=== PATIENT | female | born 1990 | race Caucasian/White ===

== ENCOUNTER → 2023-03-21 10:52 | Outpatient (BNVA) | payer MEDICARE, MEDICAID, SELFPAY | PROVIDERS: PCP Internal Medicine; Visit Provider Internal Medicine | DX: B20 Human immunodeficiency virus [HIV] disease (principal); F41.9 Anxiety disorder, unspecified; F32.A Depression, unspecified; F17.210 Nicotine dependence, cigarettes, uncomplicated; K46.9 Unspecified abdominal hernia without obstruction or gangrene; B00.9 Herpesviral infection, unspecified | CPT/HCPCS: 99202 ==

== ENCOUNTER 2023-05-23 11:16 | Outpatient (AMB) | payer MEDICARE, MEDICAID, SELFPAY ==
--- NOTE | 2023-05-23 11:17 | A.OFFVIS_ITS ---
Intake Vital Signs 05/23/23 11:28 Height 5 ft 4 in Weight 179 lb BMI 30.7 BP 124/58 L Blood Pressure Location Lt brachial Position Sitting Pulse 91 Intake Visit Reasons: Hernia Intake Note: Patient is seen in office for evaluation and treatment of umbilical hernias. Pt c/o: onset 11 yrs ago after childbirth, more pronounce after weight gain, sore, discomfort, denies nausea, vomit, diarrhea, constipation Drawing In Machine Tender Required: No Auto Bumper Straightener: Auto Bumper Straightener offered & declined Accompanied by: Son Allergies citalopram [From Celexa] Allergy (Unknown, Verified 05/23/23 11:25) Unknown sulindac Allergy (Unknown, Verified 05/23/23 11:25) Unknown batrim Allergy (Unknown, Uncoded 05/23/23 11:25) Unknown Medication List - Last Reconciled 05/23/23 by Mp Contreras MD [id number] ala 50-200-25 mg (Biktarvy) 1 tab PO DAILY clonazepam 0.25 mg PO BID gabapentin 300 mg PO DAILY Lactobacillus rhamnosus GG (Culturelle) 1 cap PO DAILY omeprazole 40 mg PO DAILY propranolol 10 mg PO TID PRN quetiapine (Seroquel) 200 mg PO DAILY tizanidine 2 mg PO TID PRN valacyclovir 1,000 mg PO DAILY HPI HPI Comments History of Present Illness Details The patient is a 32-year-old woman seen by the request of her PCP and HIV physician due to a ventral hernia that is been increasing in size. Patient denies any prior history of repair and has no signs or symptoms of incarceration, strangulation or, or obstruction. She notes her weight is fairly stable, but on any strenuous activity or Valsalva such as coughing or sneezing, the hernia protrudes more significantly and she is interested in repair. Patient states she was seen at hospital prior to moving here about 1-2 years ago. I do not have access to the records, but the patient requested that I obtained them to review them and is willing to sign consents to transfer records for continuity of care. Patient's HIV Dr. Kruger note from February, is reviewed. It appears that the patient's HIV is undetectable and the CD4 cell counts are reasonable; the patient notes that she is continuing to use nicotine and is interested in quitting, especially if it increases the risk of successful surgery. She also notes heavy daily marijuana use secondary to anxiety and we discussed how this could potentially negatively impact anesthesia stool, so she will work on titrating/weaning use of this medication. The patient notes that her 12 years ago resulted in very significant iatrogenic pathology and she reports she had a bladder injury and bleeding as well as a partial hysterectomy due to these events. She notes that she is extremely anxious about having an operation and this is also factor 10 to why she has put off surgery for such a long time. [facility] Medical History Anxiety delivery due to maternal disorder Depression demise, greater than 22 weeks, antepartum, single gestation Hernia of abdominal cavity Herpes simplex HIV (human immunodeficiency virus infection) Right ovarian cyst Smoker Surgical History Previous delivery, antepartum condition or complication S/P left oophorectomy S/p partial hysterectomy with remaining cervical stump Family History Other No known health problems Social History Alcohol intake: unknown Patient Tobacco Use Status: Current everyday Tobacco user Cigarette Packs Per Day: 1 Use of substances other than those prescribed or required for medical reasons: Unknown Review of Systems Const All systems reviewed & are unremarkable except as noted in HPI and below Reports as per HPI Physical Exam The patient is non-toxic & in good spirits NC/AT, PERRLA, EOMI Mood, affect & judgment all appear appropriate Sclera anicteric conjunctiva pink and moist Oropharynx is clear with no aphthous ulcers, Mallampati class 2, mucous membranes moist Neck is supple with no masses, adenopathy or bruits Heart is regular, normal S1-S2 no rubs or murmurs Lungs are clear and equal anteriorly with no audible wheezing, rubs or dullness to percussion Abdomen is overweight with a reducible ventral hernia in the epigastrium to the patient's left of midline; I believe the patient also has an umbilical hernia that is reducible. No HSM, rebound, rigidity, guarding, masses or bruits are present. No trophic skin changes are present and no erythema or ulceration is present. Rectal exam is deferred Skin has good turgor and is free of rashes Extremities free of cyanosis clubbing edema Assessment & Plan Assessment & Plan (1) Hernia of abdominal cavity: Code(s): K46.9 - Unspecified abdominal hernia without obstruction or gangrene (2) HIV (human immunodeficiency virus infection): Comment: She is on Biktarvy. Last CD4 count undetectable 12/2022 and viral load 917. She takes Biktarvy daily Code(s): B20 - Human immunodeficiency virus [HIV] disease (3) Anxiety: Comment: Continue medication Follow [facility] Code(s): F41.9 - Anxiety disorder, unspecified (4) Depression: Code(s): F32.A - Depression, unspecified (5) Smoker: Comment: She declines nicotine products today. Continue to offer quitting strategies. Code(s): F17.200 - Nicotine dependence, unspecified, uncomplicated (6) Asthma: Code(s): J45.909 - Unspecified asthma, uncomplicated Plan Explained the pathophysiology of hernia, specifically ventral and umbilical hernia in the rare but serious risks of incarceration, strangulation, obstruction and need for emergent surgery which carries a greater risk to the patient. The option of continued observation was reviewed, but the patient is interested in obtaining more information regarding hernia repair, since the hernia is getting bigger and becoming more symptomatic with Valsalva, such as coughing or sneezing. The patient did want to advise me and the surgical/anesthesia team that she is extremely anxious regarding this matter given her complications that occurred with her last operation/. Patient has acknowledged that she would like to quit smoking/nicotine use and we did discuss that is a modifiable risk factor for hernia complications such as recurrence and mesh infection. Patient has requested that I obtain records from her last evaluation. I did explain to the patient that she appears to have 2 hernias, the ventral hernia an d umbilical and possibly more and I have ordered a CT A/P with Valsalva (no need for oral or IV contrast) to better assess her anatomy. Multiple hernia or a desire to avoid mesh repair require CT assessment and full discussion regarding hernia repair options. She is willing to have this done and will follow up with me for 30 minute visit when it is complete. I will also obtain nonfasting labs today. I will see the patient back a week after her CT A/P is performed. Activity restrictions postoperatively, specifically that she would need to avoid lifting more than 20 lb for 6 weeks to allow adequate healing was reviewed. The option of laparoscopic repair with mesh or open repair with primary closure/without mesh was discussed and the patient will consider options and we will discuss at her follow-up visit. Lastly, the patient gave me permission to contact her physicians to coordinate care regarding her nicotine cessation, HIV/CD4 counts and optimize her for surgery. The importance of maintaining a stable weight to mitigate hernia recurrence was also reviewed and apparently understood. Patient's questions seemed to be satisfactorily answered. Orders: Orders Comprehensive Met. Panel Today B20 - Human immunodeficiency virus [HIV] disease, F17.200 - Nicotine dependence, unspecified, uncomplicated, F32.A - Depression, unspecified, F41.9 - Anxiety disorder, unspecified, K46.9 - Unspecified abdominal hernia without obstruction or gangrene Prealbumin Today B20 - Human immunodeficiency virus [HIV] disease, F17.200 - Nicotine dependence, unspecified, uncomplicated, F32.A - Depression, unspecified, F41.9 - Anxiety disorder, unspecified, K46.9 - Unspecified abdominal hernia without obstruction or gangrene CT abdomen pelvis wo IV con Today B20 - Human immunodeficiency virus [HIV] disease, F17.200 - Nicotine dependence, unspecified, uncomplicated, F32.A - Depression, unspecified, F41.9 - Anxiety disorder, unspecified, K46.9 - Unspecified abdominal hernia without obstruction or gangrene Complete Blood Count Auto Diff Today B20 - Human immunodeficiency virus [HIV] disease, F17.200 - Nicotine dependence, unspecified, uncomplicated, F32.A - Depression, unspecified, F41.9 - Anxiety disorder, unspecified, K46.9 - Unspecified abdominal hernia without obstruction or gangrene Coding Level of Care Code New Pt Level 4 (75010) Diagnoses Hernia of abdominal cavity K46.9 HIV (human immunodeficiency virus infection) B20 Anxiety F41.9 Depression F32.A Smoker F17.200 Asthma J45.909
[2023-05-23 11:28] VITALS: BP 124/58; PULSE 91; BMI 30.7
== END 2023-05-23 12:14 | disposition home or self-care (01) ==
PROVIDERS: PCP Internal Medicine; Referring Provider Internal Medicine; Visit Provider Surgery
DX: K46.9 Unspecified abdominal hernia without obstruction or gangrene (principal); B20 Human immunodeficiency virus [HIV] disease; F41.9 Anxiety disorder, unspecified; F32.A Depression, unspecified; F17.200 Nicotine dependence, unspecified, uncomplicated; J45.909 Unspecified asthma, uncomplicated
CPT/HCPCS: 99204

== ENCOUNTER → 2023-05-23 11:16 | Outpatient (BNVA) | payer MEDICAID, SELFPAY | PROVIDERS: PCP Internal Medicine; Referring Provider Internal Medicine; Visit Provider Surgery | DX: K46.9 Unspecified abdominal hernia without obstruction or gangrene (principal); B20 Human immunodeficiency virus [HIV] disease; F41.9 Anxiety disorder, unspecified; F32.A Depression, unspecified; J45.909 Unspecified asthma, uncomplicated; F17.210 Nicotine dependence, cigarettes, uncomplicated | CPT/HCPCS: 99202 ==

== ENCOUNTER 2023-07-07 14:59 | Outpatient (REF) | payer MEDICARE, MEDICAID, SELFPAY ==
--- NOTE | ~2023-07-07 | CT_ITS ---
EXAMINATION: CT ABDOMEN AND PELVIS WITHOUT CONTRAST CLINICAL INFORMATION: Unspecified abdominal hernia without obstruction or gangrene. COMPARISON: None available. TECHNIQUE: Multidetector volumetric imaging was performed from the superior aspect of the liver through the pubic symphysis. Sagittal and coronal reformatted images were obtained on the technologist's workstation. Valsalva maneuver was performed. This CT examination was performed using dose optimization techniques as appropriate, variously including the following: *Automated exposure control *Adjustment of mA and/or kV according to patient size (this includes techniques or standardized protocols for targeted exams where dose is matched to indication/reason for exam; i.e. extremities or head) *Use of iterative reconstruction technique DLP: 546 mGy-cm FINDINGS: LUNG BASES: Trace pericardial effusion. LIVER, GALLBLADDER, AND BILIARY TREE: The liver is normal in size, shape, and attenuation. No focal hepatic lesion or biliary ductal dilatation is present. The gallbladder is unremarkable with no evidence of radiopaque gallstones, gallbladder wall thickening, or obvious pericholecystic inflammatory changes. PANCREAS: Unremarkable. SPLEEN: Unremarkable. ADRENAL GLANDS: Unremarkable. KIDNEYS AND URETERS: The kidneys are symmetric in size. Punctate bilateral nonobstructing renal calculi. No hydronephrosis or perinephric stranding. BLADDER: Underdistended. GASTROINTESTINAL TRACT: There is a featureless appearance of the rectosigmoid colon. No small bowel obstruction. Moderate fecal retention in the colon. Appendix is within normal limits. ABDOMINAL WALL: Left eccentric ventral hernia measures 5.9 x 3.8 x 4.5 cm. Neck of the hernia measures 2.1 cm. There are no associated inflammatory changes. LYMPH NODES: No bulky abdominal or pelvic lymphadenopathy. VASCULAR: Normal caliber abdominal aorta. PELVIC VISCERA: Streak artifact from multiple metallic clips in the pelvis. This limits evaluation of the pelvic visceral structures. OSSEOUS STRUCTURES: No destructive bone lesions. CT/CT abdomen pelvis wo IV con IMPRESSION: Left eccentric ventral hernia measures 5.9 x 3.8 x 4.5 cm. Neck of the hernia measures 2.1 cm. No associated inflammatory changes. Punctate nonobstructing bilateral renal calculi. No hydronephrosis.
== END 2023-07-07 15:00 | disposition home or self-care (01) ==
LOC: HO.CT 14:59
PROVIDERS: PCP Internal Medicine; Visit Provider Surgery
DX: K46.9 Unspecified abdominal hernia without obstruction or gangrene (principal); B20 Human immunodeficiency virus [HIV] disease; F17.200 Nicotine dependence, unspecified, uncomplicated
CPT/HCPCS: 74176

== ENCOUNTER 2023-07-19 10:33 | Outpatient (AMB) | payer MEDICARE, MEDICAID, SELFPAY ==
[2023-07-19 10:39] VITALS: BP 105/63; PULSE 70; TEMP 36.2; O2SAT 99; BMI 30.6
--- NOTE | 2023-07-19 10:39 | MHC.OFFVIS ---
Intake Vital Signs 07/19/23 10:39 Height 5 ft 4 in Weight 178 lb 9.191 oz BMI 30.6 BP 105/63 Blood Pressure Location Rt brachial Position Sitting Pulse 70 Pulse Source Pulse Oximeter Temp 97.1 F Temp Source Temporal Artery Scan Pulse Oximetry (%) 99 Oxygen Delivery Method Room Air Intake Visit Reasons: Follow Up CT scan Tree Thinner Required: No Manager Wastewater: Manager Wastewater offered & declined Allergies citalopram [From Celexa] Allergy (Unknown, Verified 07/19/23 10:59) Unknown sulindac Allergy (Unknown, Verified 07/19/23 10:59) Unknown batrim Allergy (Unknown, Uncoded 07/19/23 10:59) Unknown HPI HPI Comments History of Present Illness Details The patient is a 32-year-old woman seen by the request of her PCP and HIV physician due to a ventral hernia that is been increasing in size. Patient denies any prior history of repair and has no signs or symptoms of incarceration, strangulation or, or obstruction. She notes her weight is fairly stable, but on any strenuous activity or Valsalva such as coughing or sneezing, the hernia protrudes more significantly and she is interested in repair. The patient is here in follow-up regarding the CT I ordered to assess her ventral hernia and an incidental umbilical hernia was also noted. She notes continued heavy cigarette smoking & daily marijuana use. Patient's HIV Dr. Clinton & Deborah note from February, is reviewed. It appears that the patient's HIV is undetectable and the CD4 cell counts are reasonable; the patient notes that she is continuing to use nicotine and is interested in quitting, especially if it increases the risk of successful surgery. She also notes heavy daily marijuana use secondary to anxiety and we discussed how this could potentially negatively impact anesthesia, so she will work on titrating/weaning use of marijuana. The patient notes that her 12 years ago resulted in very significant iatrogenic pathology and she reports she had a bladder injury and bleeding as well as a partial hysterectomy due to these events. She notes that she is extremely anxious about having an operation and this is also factoring into why she has put off surgery for such a long time. [facility] Medical History Herpes simplex Anxiety Depression demise, greater than 22 weeks, antepartum, single gestation Smoker delivery due to maternal disorder Right ovarian cyst HIV (human immunodeficiency virus infection) Hernia of abdominal cavity Surgical History Previous delivery, antepartum condition or complication S/P left oophorectomy S/p partial hysterectomy with remaining cervical stump Family History Other No known health problems Social History Alcohol intake: unknown Patient Tobacco Use Status: Current everyday Tobacco user Cigarette Packs Per Day: 1 Review of Systems Const All systems reviewed & are unremarkable except as noted in HPI and below Reports as per HPI Physical Exam On exam she is non-toxic & anicteric she's in no acute respiratory distress Her abdomen is overweight with a reducible ventral hernia in the supraumbilical midline and a small, reducible umbilical hernia. She has no peritoneal sign on exam. Results Reviewed Results Reviewed: CT of the abdomen and pelvis with Valsalva demonstrates both a small umbilical hernia and a larger 2.1 cm fascial defect above the umbilicus. They are in proximity to each other, so laparoscopic primary closure and intraperitoneal mesh repair (IPOM-plus) is recommended. Assessment & Plan Assessment & Plan (1) Ventral hernia: Code(s): K43.9 - Ventral hernia without obstruction or gangrene (2) Umbilical hernia: Code(s): K42.9 - Umbilical hernia without obstruction or gangrene (3) HIV (human immunodeficiency virus infection): Comment: She is on Biktarvy. Last CD4 count undetectable 12/2022 and viral load 917. She takes Biktarvy daily Code(s): B20 - Human immunodeficiency virus [HIV] disease (4) Anxiety: Comment: Continue medication Follow [facility] Code(s): F41.9 - Anxiety disorder, unspecified (5) Smoker: Comment: She declines nicotine products today. Continue to offer quitting strategies. Code(s): F17.200 - Nicotine dependence, unspecified, uncomplicated (6) Depression: Code(s): F32.A - Depression, unspecified (7) S/P left oophorectomy: Code(s): Z90.721 - Acquired absence of ovaries, unilateral (8) S/p partial hysterectomy with remaining cervical stump: Code(s): Z90.711 - Acquired absence of uterus with remaining cervical stump (9) Asthma: Code(s): J45.909 - Unspecified asthma, uncomplicated Plan Explained to the patient that she has a small asymptomatic umbilical hernia as well as a larger ventral hernia with a 2.1 cm defect. We reviewed options including laparoscopic repair with mesh, her prior iatrogenic complications that required prolonged hospitalization and the other option of a simple open repair addressing the most symptomatic hernia, the ventral hernia. The importance of maintaining a stable weight and ideally, nicotine cessation was discussed. Patient had questions regarding the pros and cons of and a laparoscopic verses open repair. If she is unable to quit smoking, the simple is course of action may be primary closure of this defect via open approach. The patient did express some interest in laparoscopic mesh repair, but did voice anxiety over her prior complications from intra-abdominal surgery. We will discuss in greater detail at her follow-up after her labs are performed. Patient will go for nonfasting labs. Patient is due for follow-up with her ID doctor, Dr. Love, re: HIV & viral counts & CD4 counts. Handouts regarding a high-protein/low-carbohydrate/low-fat diet were provided with dietary instruction regarding maintaining healthy weight. Patient's questions seemed to be satisfactorily answered and she will follow up in 2 weeks. Coding Level of Care Code Est Pt Level 4 (31344) Diagnoses Ventral hernia K43.9 Umbilical hernia K42.9 HIV (human immunodeficiency virus infection) B20 Anxiety F41.9 Smoker F17.200 Depression F32.A S/P left oophorectomy Z90.721 S/p partial hysterectomy with remaining cervical stump Z90.711 Asthma J45.909
== END 2023-07-19 11:34 | disposition home or self-care (01) ==
PROVIDERS: PCP Internal Medicine; Visit Provider Surgery
DX: K43.9 Ventral hernia without obstruction or gangrene (principal); K42.9 Umbilical hernia without obstruction or gangrene; B20 Human immunodeficiency virus [HIV] disease; F41.9 Anxiety disorder, unspecified; F17.200 Nicotine dependence, unspecified, uncomplicated; F32.A Depression, unspecified; Z90.721 Acquired absence of ovaries, unilateral; Z90.711 Acquired absence of uterus with remaining cervical stump; J45.909 Unspecified asthma, uncomplicated
CPT/HCPCS: 99214

== ENCOUNTER 2023-07-19 10:33 | Outpatient (REF) | payer MEDICARE, MEDICAID, SELFPAY ==
[2023-07-19 11:54] LABS: MANUAL DIFF FLAG NO
[2023-07-19 12:44] LABS: Basophils Absolute Auto 0.1 X10*3/uL (0.0-0.2); Basophils Percent Auto 0.5 % (0-2); Eosinophils Absolute Auto 0.3 X10*3/uL (0.0-0.4); Eosinophils Percent Auto 2.7 % (0-4); Hematocrit 42.2 % (37.0-47.0); Hemoglobin 14.2 g/dl (12.0-16.0); Imm Gran Abs Auto 0.04 X10*3/uL (0.00-0.03); Imm Gran Pct Auto 0.4 % (0.0-0.4); Lymphocytes Percent Auto 32.6 % (20-40); Mean Corpuscular HGB Conc 33.6 g/dl (31.0-35.0); Mean Corpuscular Volume 98.1 fL (80.0-98.0); Mean Platelet Volume 10.1 fL (9.4-12.3); Monocytes Absolute Auto 0.5 X10*3/uL (0.1-1.2); Monocytes Percent Auto 5.1 % (2-11); Neutrophils Absolute Auto 5.3 x10*3/uL (2.0-8.3); Neutrophils Percent Auto 58.7 % (45-73); Platelet Count 273 X10*3/uL (160-400); Red Cell Distribution Width 12.7 % (11.0-16.0); White Blood Count 9.1 X10*3/uL (4.8-10.8)
[2023-07-19 13:01] LABS: INTERNATIONAL NORM RATIO 0.9 (0.9-1.1); Prothrombin Time 11.4 SEC (11.1-13.3)
[2023-07-19 13:03] LABS: Partial Thromboplastin Time 45.1 SEC (26.0-36.4)
[2023-07-19 13:20] LABS: Alanine Aminotransferase 18 U/L (0-31); Albumin Level 4.6 g/dL (3.5-5.0); Alkaline Phosphatase 89 U/L (39-117); Anion Gap 10 (12-20); Aspartate Amino Transferase 19 U/L (5-31); Bilirubin Total 0.5 mg/dL (0.0-1.0); Blood Urea Nitrogen 11 mg/dL (9-16); Calcium 9.8 mg/dL (8.4-10.2); Carbon Dioxide 28 mmol/L (22-29); Chloride 105 mmol/L (96-108); Estimated Glomerular Filt Rate > 60; Glucose Random 88 mg/dL (60-115); Potassium 4.2 mmol/L (3.3-5.1); Sodium 139 mmol/L (135-145); Total Protein 7.4 g/dL (6.5-8.0)
== END 2023-07-19 10:34 | disposition home or self-care (01) ==
LOC: HO.LAB 10:33
PROVIDERS: PCP Internal Medicine; Visit Provider Surgery
DX: K43.9 Ventral hernia without obstruction or gangrene (principal); K42.9 Umbilical hernia without obstruction or gangrene; B20 Human immunodeficiency virus [HIV] disease; F41.9 Anxiety disorder, unspecified; F32.A Depression, unspecified; J45.909 Unspecified asthma, uncomplicated; F17.200 Nicotine dependence, unspecified, uncomplicated; Z90.711 Acquired absence of uterus with remaining cervical stump; Z90.721 Acquired absence of ovaries, unilateral
CPT/HCPCS: 36415; 80053; 84134; 85025; 85610; 85730; 99212

== ENCOUNTER 2023-08-01 09:21 | Outpatient (AMB) | payer MEDICARE, MEDICAID, SELFPAY ==
--- NOTE | 2023-08-01 09:21 | A.OFFVIS_ITS ---
Intake Intake Visit Reasons: Follow Up CT scan Intake Note: televisit Allergies citalopram [From Celexa] Allergy (Unknown, Verified 08/01/23 09:22) Unknown sulindac Allergy (Unknown, Verified 08/01/23 09:22) Unknown batrim Allergy (Unknown, Uncoded 08/01/23 09:22) Unknown HPI HPI Comments History of Present Illness Details The patient is a 32-year-old woman seen by the request of her PCP and HIV physician due to a ventral hernia that is been increasing in size. Patient denies any prior history of repair and has no signs or symptoms of incarceration, strangulation or, or obstruction. She notes her weight is fairly stable, but on any strenuous activity or Valsalva such as coughing or sneezing, the hernia protrudes more significantly and she is interested in repair. The patient requested a televisit f/u today, 08/01/23 regarding the next steps re: her ventral hernia and an incidental umbilical hernia was also noted. She notes continued heavy cigarette smoking & daily marijuana use. She is interested in nicotine cessation and believe she would prefer the more durable laparoscopic repair with intraperitoneal mesh. She stated that she understands she needs to quit all nicotine use before hand. She otherwise denies interval change to her health history. Patient's HIV Dr. Clinton & Deborah note from February, is reviewed. It appears that the patient's HIV is undetectable and the CD4 cell counts are reasonable; the patient notes that she is continuing to use nicotine and is int erested in quitting, especially if it increases the risk of successful surgery. She also notes heavy daily marijuana use secondary to anxiety and we discussed how this could potentially negatively impact anesthesia, so she will work on titrating/weaning use of marijuana. The patient notes that her 12 years ago resulted in very significant iatrogenic pathology and she reports she had a bladder injury and bleeding as well as a partial hysterectomy due to these events. She notes that she is extremely anxious about having an operation and this is also factoring into why she has put off surgery for such a long time. At today's telephone visit, the patient would like to have the hernia repair done, but would prefer to put it off until next year after the holidays and understands that if she becomes more symptomatic, she will need to reach out by telephone or be evaluated in the nearest emergency department. She has requested a follow-up in the office for this Florentin to finalize any details regarding scheduling surgery. [facility] Medical History Herpes simplex Anxiety Depression demise, greater than 22 weeks, antepartum, single gestation Smoker delivery due to maternal disorder Right ovarian cyst HIV (human immunodeficiency virus infection) Hernia of abdominal cavity Surgical History Previous delivery, antepartum condition or complication S/P left oophorectomy S/p partial hysterectomy with remaining cervical stump Family History Other No known health problems Social History Alcohol intake: unknown Patient Tobacco Use Status: Current everyday Tobacco user Cigarette Packs Per Day: 1 Review of Systems Const All systems reviewed & are unremarkable except as noted in HPI and below Reports as per HPI Physical Exam Pt requested televisit Results Reviewed Results Reviewed: CT of the abdomen and pelvis with Valsalva demonstrates both a small umbilical hernia and a larger 2.1 cm fascial defect above the umbilicus. They are in proximity to each other, so laparoscopic primary closure and intraperitoneal mesh repair (IPOM-plus) is recommended. In reviewing the patient's EMR, it appears that she is due for repeat HIV/CD4 labs and his reached out to Dr. Clinton. The pt states she's reached out to her PCP re: nicotine cessation treatment Assessment & Plan Assessment & Plan (1) Ventral hernia: Code(s): K43.9 - Ventral hernia without obstruction or gangrene (2) Umbilical hernia: Code(s): K42.9 - Umbilical hernia without obstruction or gangrene (3) Asthma: Code(s): J45.909 - Unspecified asthma, uncomplicated (4) HIV (human immunodeficiency virus infection): Comment: She is on Biktarvy. Last CD4 count undetectable 12/2022 and viral load 917. She takes Biktarvy daily Code(s): B20 - Human immunodeficiency virus [HIV] disease (5) Anxiety: Comment: Continue medication Follow [facility] Code(s): F41.9 - Anxiety disorder, unspecified (6) Depression: Code(s): F32.A - Depression, unspecified (7) Smoker: Comment: She declines nicotine products today. Continue to offer quitting strategies. Code(s): F17.200 - Nicotine dependence, unspecified, uncomplicated (8) S/P left oophorectomy: Code(s): Z90.721 - Acquired absence of ovaries, unilateral (9) S/p partial hysterectomy with remaining cervical stump: Code(s): Z90.711 - Acquired absence of uterus with remaining cervical stump Plan We again reviewed the fact she has a small asymptomatic umbilical hernia as well as a larger ventral hernia with a 2.1 cm defect. We reviewed options including laparoscopic repair with mesh, her prior iatrogenic complications that required prolonged hospitalization and the other option of a simple open repair ad dressing the most symptomatic hernia, the ventral hernia. The importance of maintaining a stable weight and ideally, nicotine cessation was discussed. Patient had questions regarding the pros and cons of and a laparoscopic verses open repair. If she is unable to quit smoking, the option of primary closure of this defect via open approach is safest. The patient did express some interest in laparoscopic mesh repair, but she continues to note anxiety over her prior complications from intra-abdominal surgery. At today's call, she could only state she would like to stop smoking to increase her option of repair. The increased risk of recurrence with ongoing nicotine use and weight gain was again reviewed. Patient will go for nonfasting labs. Patient is due for follow-up with her ID doctor, Dr. Love, re: HIV & viral counts & CD4 counts. Handouts regarding a high-protein/low-carbohydrate/low-fat diet were provided with dietary instruction regarding maintaining healthy weight. Patient's questions seemed to be satisfactorily answered and she will follow up later this year, sooner if she has questions or symptoms. Time spent in reviewing the pt's records & on her call: 16 minutes Telehealth Telehealth Location of provider rendering services: practice address Location of patient: address on file Patient Identification confirmed using: Name, : Yes Telehealth method: voice only Patient verbally consented to treatment: Yes Patient verbally consented to billing insurance company: Yes Patient informed of any privacy concerns related to visit: Yes Minutes spent on Phone/Video with Pt.: 16 Coding Level of Care Code Tele Est Pt Level 3 (19044) Diagnoses Ventral hernia K43.9 Umbilical hernia K42.9 Asthma J45.909 HIV (human immunodeficiency virus infection) B20 Anxiety F41.9 Depression F32.A Smoker F17.200 S/P left oophorectomy Z90.721 S/p partial hysterectomy with remaining cervical stump Z90.711
== END 2023-08-01 09:47 | disposition home or self-care (01) ==
LOC: HO.HGS 09:21
PROVIDERS: PCP Internal Medicine; Visit Provider Surgery
DX: K43.9 Ventral hernia without obstruction or gangrene (principal); K42.9 Umbilical hernia without obstruction or gangrene; B20 Human immunodeficiency virus [HIV] disease; J45.909 Unspecified asthma, uncomplicated; F41.9 Anxiety disorder, unspecified; F32.A Depression, unspecified; F17.200 Nicotine dependence, unspecified, uncomplicated; Z90.721 Acquired absence of ovaries, unilateral; Z90.711 Acquired absence of uterus with remaining cervical stump
CPT/HCPCS: 99442

== ENCOUNTER → 2023-08-01 09:21 | Outpatient (BNVA) | payer MEDICARE, MEDICAID, SELFPAY | PROVIDERS: PCP Internal Medicine; Visit Provider Surgery ==

== ENCOUNTER 2023-08-03 10:00 | Outpatient (REF) | payer MEDICARE, MEDICAID, SELFPAY ==
[2023-08-03 11:23] LABS: MANUAL DIFF FLAG NO
[2023-08-03 11:40] LABS: Basophils Percent Auto 0.4 % (0-2); Eosinophils Absolute Auto 0.2 X10*3/uL (0.0-0.4); Eosinophils Percent Auto 1.6 % (0-4); Hematocrit 40.8 % (37.0-47.0); Hemoglobin 13.9 g/dl (12.0-16.0); Imm Gran Abs Auto 0.03 X10*3/uL (0.00-0.03); Imm Gran Pct Auto 0.3 % (0.0-0.4); Lymphocytes Absolute Auto 2.7 X10*3/uL (1.2-4.9); Lymphocytes Percent Auto 25.1 % (20-40); Mean Corpuscular HGB Conc 34.1 g/dl (31.0-35.0); Mean Corpuscular Hemoglobin 33.2 pg (27.0-33.0); Mean Corpuscular Volume 97.4 fL (80.0-98.0); Mean Platelet Volume 10.1 fL (9.4-12.3); Monocytes Absolute Auto 0.7 X10*3/uL (0.1-1.2); Monocytes Percent Auto 6.2 % (2-11); Neutrophils Absolute Auto 7.1 x10*3/uL (2.0-8.3); Neutrophils Percent Auto 66.4 % (45-73); Platelet Count 254 X10*3/uL (160-400); Red Blood Count 4.19 X10*6/uL (4.20-5.50); Red Cell Distribution Width 12.6 % (11.0-16.0); White Blood Count 10.7 X10*3/uL (4.8-10.8)
[2023-08-03 11:52] LABS: Appearance Urine Clear; Color Urine Yellow; Glucose Urine UA Negative (Negative); Leukocyte Esterase Urine Negative (Negative); Nitrite Urine Negative (Negative); PH 6.5 (5.0-9.0); Urine Blood Negative (Negative); Urine Ketones Negative (Negative); Urine Protein Negative (Neg-Trace)
[2023-08-03 11:57] LABS: Bacteria Urine None Seen (None Seen); Hyaline Casts Urine 0-2 /LPF (0-2); RBC Urine 0-2 /HPF (0-2); Squamous Epithelial Cell Urine 0-2 /HPF (0-2); WBC Urine 0-5 /HPF (0-5)
[2023-08-03 12:04] LABS: Cholesterol 187 mg/dL (<200); HDL Cholesterol 40 mg/dL (>40); LDL Cholesterol Calculated 120 mg/dL (<100); Triglycerides 138 mg/dL (<150)
[2023-08-03 12:22] LABS: Alanine Aminotransferase 8 U/L (0-31); Albumin Level 4.6 g/dL (3.5-5.0); Alkaline Phosphatase 84 U/L (39-117); Anion Gap 11 (12-20); Aspartate Amino Transferase 13 U/L (5-31); Bilirubin Total 0.8 mg/dL (0.0-1.0); Blood Urea Nitrogen 10 mg/dL (9-16); Calcium 9.5 mg/dL (8.4-10.2); Carbon Dioxide 27 mmol/L (22-29); Chloride 104 mmol/L (96-108); Estimated Glomerular Filt Rate > 60; Glucose Random 102 mg/dL (60-115); Potassium 4.1 mmol/L (3.3-5.1); Sodium 138 mmol/L (135-145); Total Protein 7.5 g/dL (6.5-8.0)
[2023-08-03 13:37] LABS: Reflex LDLD? No
[2023-08-04 11:48] LABS: Absolute CD3 Count 2316 cells/uL (840-3060); Absolute CD4 Count 1009 cells/uL (490-1740); Absolute CD8 Count 1337 cells/uL (180-1170); Absolute Lymphocytes 2842 cells/uL (850-3900); CD4 CD8 Ratio 0.75 (0.86-5.00); Percent CD3 Cells 81 % (57-85); Percent CD4 Cells 35 % (30-61); Percent CD8 Cells 47 % (12-42)
[2023-08-04 15:43] LABS: HIV RNA PCR Qn Copies NOT DETECTED copies/mL (NOT DETECTED); HIV RNA PCR Qn Log Copies NOT DETECTED (NOT DETECTED)
[2023-08-05 11:33] LABS: TS Negative Control Passed; TS Panel A 0; TS Panel B 0; TS Positive Control Passed; TSpotTB Negative (Negative)
== END 2023-08-03 10:01 | disposition home or self-care (01) ==
LOC: HO.HHCL 10:00
PROVIDERS: Visit Provider Internal Medicine
DX: Z11.1 Encounter for screening for respiratory tuberculosis (principal); B20 Human immunodeficiency virus [HIV] disease
CPT/HCPCS: 36415; 80053; 80061; 81001; 85025; 86359; 86360; 86481; 87536

== ENCOUNTER 2024-01-30 14:48 | Outpatient (REF) | payer MEDICARE, MEDICAID, SELFPAY ==
[2024-01-30 16:18] LABS: MANUAL DIFF FLAG NO
[2024-01-30 16:23] LABS: Basophils Absolute Auto 0.1 X10*3/uL (0.0-0.2); Basophils Percent Auto 0.5 % (0-2); Eosinophils Absolute Auto 0.1 X10*3/uL (0.0-0.4); Eosinophils Percent Auto 0.6 % (0-4); Hematocrit 42.5 % (37.0-47.0); Hemoglobin 14.6 g/dl (12.0-16.0); Imm Gran Abs Auto 0.05 X10*3/uL (0.00-0.03); Imm Gran Pct Auto 0.5 % (0.0-0.4); Lymphocytes Absolute Auto 2.8 X10*3/uL (1.2-4.9); Lymphocytes Percent Auto 25.8 % (20-40); Mean Corpuscular HGB Conc 34.4 g/dl (31.0-35.0); Mean Corpuscular Hemoglobin 33.3 pg (27.0-33.0); Mean Platelet Volume 10.2 fL (9.4-12.3); Monocytes Absolute Auto 0.4 X10*3/uL (0.1-1.2); Monocytes Percent Auto 3.4 % (2-11); Neutrophils Absolute Auto 7.4 x10*3/uL (2.0-8.3); Neutrophils Percent Auto 69.2 % (45-73); Platelet Count 289 X10*3/uL (160-400); Red Blood Count 4.38 X10*6/uL (4.20-5.50); Red Cell Distribution Width 11.9 % (11.0-16.0); White Blood Count 10.7 X10*3/uL (4.8-10.8)
[2024-01-30 18:05] LABS: Alanine Aminotransferase 10 U/L (0-31); Albumin Level 4.7 g/dL (3.5-5.0); Alkaline Phosphatase 86 U/L (39-117); Anion Gap 12 (12-20); Aspartate Amino Transferase 15 U/L (5-31); Bilirubin Total 0.5 mg/dL (0.0-1.0); Blood Urea Nitrogen 13 mg/dL (9-16); Calcium 9.7 mg/dL (8.4-10.2); Carbon Dioxide 29 mmol/L (22-29); Chloride 102 mmol/L (96-108); Estimated Glomerular Filt Rate > 60; Glucose Random 121 mg/dL (60-115); Potassium 4.1 mmol/L (3.3-5.1); Sodium 139 mmol/L (135-145); Total Protein 7.8 g/dL (6.5-8.0)
[2024-01-31 04:30] LABS: ~HepC Num1 0.11 S/CO (0.00-0.79); ~Hepatitis C Antibody Nonreactive (Nonreactive)
[2024-02-01 10:38] LABS: Absolute CD3 Count 2376 cells/uL (840-3060); Absolute CD4 Count 1097 cells/uL (490-1740); Absolute CD8 Count 1361 cells/uL (180-1170); Absolute Lymphocytes 2985 cells/uL (850-3900); CD4 CD8 Ratio 0.81 (0.86-5.00); Percent CD3 Cells 80 % (57-85); Percent CD4 Cells 37 % (30-61); Percent CD8 Cells 46 % (12-42)
[2024-02-01 16:54] LABS: HIV RNA PCR Qn Copies 23 copies/mL (NOT DETECTED); HIV RNA PCR Qn Log Copies 1.36 (NOT DETECTED)
== END 2024-01-30 14:49 | disposition home or self-care (01) ==
LOC: HO.HHCL 14:48
PROVIDERS: Visit Provider Internal Medicine
DX: B20 Human immunodeficiency virus [HIV] disease (principal)
CPT/HCPCS: 36415; 80053; 85025; 86359; 86360; 86803; 87536

== ENCOUNTER 2024-02-04 22:29 | Emergency (ER) | payer MEDICARE, MEDICAID, SELFPAY ==
--- NOTE | ~2024-02-04 | CT_ITS ---
EXAMINATION: CT HEAD WITHOUT CONTRAST CLINICAL INFORMATION: Acute headache COMPARISON: None available. TECHNIQUE: Contiguous axial imaging was performed from the skull base to vertex without intravenous administration of contrast. This CT examination was performed using dose optimization techniques as appropriate, variously including the following: *Automated exposure control *Adjustment of mA and/or kV according to patient size (this includes techniques or standardized protocols for targeted exams where dose is matched to indication/reason for exam; i.e. extremities or head) *Use of iterative reconstruction technique DLP: 663 mGy-cm FINDINGS: There is no evidence of acute intracranial hemorrhage. There is asymmetric hypoattenuation with apparent loss of catalan-white differentiation in the right occipital lobe. There is also subtle hypoattenuation throughout the lateral aspect of the right frontotemporoparietal region as well as of the right cerebellar hemisphere. These findings may be artifactual in nature. No abnormal mass-effect or midline shift is seen. No extra-axial fluid collections are identified. The ventricles are normal in size. The osseous structures and soft tissues are normal. The mastoid air cells and visualized portions of the paranasal sinuses are well-aerated. CT/CT head/brain wo IV con IMPRESSION: Asymmetric hypoattenuation with apparent loss of catalan-white differentiation in the right occipital lobe, as well as subtle hypoattenuation throughout the lateral aspect of the right frontotemporoparietal region and right cerebellar hemisphere. Overall appearance is suggestive of artifact, though in the proper clinical setting acute infarct could also have this appearance. If clinically warranted, this may be better assessed with MRI. No acute intracranial hemorrhage. This was discussed with Dr. Mcrae on 02/05/2024 12:59 AM.
[2024-02-04 22:38] VITALS: BP 116/56; PULSE 94; RESP 17; TEMP 36.7; O2SAT 96
[2024-02-04 22:39] VITALS: BP 102/76; PULSE 97; O2SAT 96; BMI 31.3
--- NOTE | 2024-02-04 23:00 | ECG_ITS ---
Test Reason : DYSPNEA Blood Pressure : / mmHG Vent. Rate : 084 BPM Atrial Rate : 084 BPM P-R Int : 152 ms QRS Dur : 094 ms QT Int : 398 ms P-R-T Axes : 051 051 036 degrees QTc Int : 470 ms Normal sinus rhythm Low voltage QRS Borderline ECG No previous ECGs available Referred By: Ella Mcrae Electronically Signed By:Surinder Jason
--- NOTE | 2024-02-04 23:12 | ED_ITS ---
HPI - Dizziness General Chief Complaint: Dizziness Stated Complaint: dizzy and weak Source: patient and old records reviewed Mode of arrival: EMS Limitations: no limitations History of Present Illness HPI Narrative: 33 yo female with HIV on medications with undetectable viral load, asthma, anxiety, was on the phone with keely about 1 hour prior to arrival sitting down felt intense room spinning and nausea. Tried to get up symptoms got worse and she felt she was leaning to the side. She also has a headache but has hx of headaches. No recent trauma, whiphlash or chiropractic work. She feels much better at this time but if she sits up and turns her head to the left the room spinning returns. No recent URI symptoms. Not on thinners. MD elicited complaint: dizziness Onset (ago): hour(s) (1) Timing: sudden onset Severity: severe Description: off-balance Context: change in body position History of similar symptoms: No Exacerbating factors: movement/ambulation, change in body position and standing Relieving factors: remaining still Associated symptoms: nausea Related Data Home Medications Medication Instructions Recorded Confirmed Lactobacillus rhamnosus GG 10 1 cap PO DAILY 03/21/23 billion cell capsule (Culturelle) bictegravir 50 mg-emtricitabine 1 tab PO DAILY 03/21/23 05/23/23 200 mg-tenofovir alafenam 25 mg tablet (Biktarvy) clonazepam 0.5 mg tablet 0.25 mg PO BID 03/21/23 05/23/23 gabapentin 300 mg capsule 300 mg PO DAILY 03/21/23 05/23/23 omeprazole 40 mg capsule,delayed 40 mg PO DAILY 03/21/23 05/23/23 release quetiapine 200 mg tablet (Seroquel) 200 mg PO DAILY 03/21/23 05/23/23 tizanidine 2 mg tablet 2 mg PO TID PRN 03/21/23 05/23/23 valacyclovir 1 gram tablet 1,000 mg PO DAILY 03/21/23 05/23/23 propranolol 10 mg tablet 10 mg PO TID PRN anxiety 05/23/23 05/23/23 Previous Rx's Medication Instructions Recorded meclizine 25 mg tablet 25 mg PO TID PRN dizziness #30 tabs 02/05/24 Allergies Allergy/AdvReac Type Severity Reaction Status Date / Time citalopram [From Celexa] Allergy Unknown Unknown Verified 02/04/24 22:45 sulindac Allergy Unknown Unknown Verified 02/04/24 22:45 sulfamethoxazole Allergy Unknown Verified 02/04/24 22:45 [From Bactrim] trimethoprim [From Bactrim] Allergy Unknown Verified 02/04/24 22:45 Review of Systems 2 Review of Systems: Constitutional : No Fever, No Chills, No Fatigue ENT/Mouth : No sore throat, No Rhinorrhea Eyes: No Eye Pain, No Swelling, No Redness Cardiovascular : No Chest Pain, No SOB, No Dyspnea on Exertion Respiratory : No Cough, No Sputum Gastrointestinal : pos Nausea, No Vomiting, No Diarrhea, No abdominal Pain Genitourinary : No Dysuria, No Urinary Frequency, No Hematuria, Musculoskeletal : No joint pain, No Myalgias, No Joint Swelling Skin : No Skin Lesions, No rash Neuro : No Weakness, No Numbness, pos Dizziness, positive Headache Psych : No Anxiety/Panic, No Depression All other systems reviewed and are negative PMFSH Past Medical History Attestation statement: The following information was validated with the patient. Source: old records reviewed Medical History Herpes simplex Anxiety Depression demise, greater than 22 weeks, antepartum, single gestation Smoker delivery due to maternal disorder Right ovarian cyst HIV (human immunodeficiency virus infection) Hernia of abdominal cavity Surgical History Previous delivery, antepartum condition or complication S/P left oophorectomy S/p partial hysterectomy with remaining cervical stump Family History Family History Other No known health problems Social History Social History Alcohol intake: unknown Patient Tobacco Use Status: Current everyday Tobacco user Cigarette Packs Per Day: 1 Smoked in Last 30 Days: No Use of substances other than those prescribed or required for medical reasons: No Advance Directives: No Advance Directives Information Provided: No Physical Exam 2 Vital Signs: Vital Signs: Last Vital Signs Temp 97.6 F 02/05/24 01:31 Pulse 86 02/05/24 01:31 Resp 14 02/05/24 01:31 BP 111/56 L 02/05/24 01:31 Pulse Ox 98 02/05/24 01:31 O2 Del Method Room Air 02/05/24 01:31 BMI result Body Mass Index 31.3 Appearance: Alert. Oriented X3. No acute distress. Eyes: Pupils equal, round and reactive to light. ENT: Pharynx normal. TMs normal, nystagmus noted horizontal when turning head to left Neck: Normal inspection. Neck supple. CVS: Normal heart rate and rhythm. Pulses normal. Respiratory: No respiratory distress. Breath sounds normal. Abdomen: Soft and nontender. Skin: Skin warm and dry. Normal skin color. Normal skin turgor. Extremities: No lower extremity edema. Neuro: Oriented X 3. No motor deficit. No sensory deficit. Course Course Course Narrative: CT scan abrupt onset dizziness that is positional without focal deficits does not correlate with CT scan doubt acute stroke and it was within 1 hour would not show up on CT scan suspect artifact able to get up feels much better stable for DC Reevaluation(s) Reevaluation #1: walked out of ED to [employer] ride steady gait no ataxia no deficits Medications Administered Discontinued Medications Generic Name Dose Route Start Last Admin Trade Name Freq PRN Reason Stop Dose Admin Sodium Chloride 1,000 mls @ 999 mls/hr 02/04/24 23:00 02/05/24 00:42 Ns IV 02/05/24 00:00 Infused .Q1H1M LILY Infusion Meclizine HCl 25 mg 02/04/24 23:02 02/04/24 23:41 Meclizine Hcl 25 Mg Tablet PO 02/04/24 23:03 25 mg ONCE ONE Administration Medical Decision Making Medical Decision Making [facility] Narrative: 33 yo female with HIV on medications with undetectable viral load, asthma, anxiety, here with abrupt onset dizziness 1 hour prior to arrival with a headache - she is not toxic appearing, has no meningeal signs no recent neck manipulation or head trauma. Symptoms resolved with rest and laying down not consistent with posterior stroke. At this time will obtain basic labs, CT head for mass, IVF and meclizine suspect peripheral source and vertigo Differential Diagnosis Differential Diagnoses: The differential diagnosis associated with the presentation includes vertigo, URI, anemia, dehydration, mass Admission/Observation Consideration of admission/observation: Escalation of care including admission/observation considered feels better stable for DC Lab Data [facility] Lab Attestation statement: I reviewed the patient's lab results. 02/04/24 23:40 02/04/24 23:40 Labs: Lab Results 02/04/24 Range/Units 23:40 WBC 10.6 (4.8-10.8) X10*3/uL RBC 4.45 (4.20-5.50) X10*6/uL Hgb 14.8 (12.0-16.0) g/dl Hct 41.3 (37.0-47.0) % MCV 92.8 (80.0-98.0) fL MCH 33.3 H (27.0-33.0) pg MCHC 35.8 H (31.0-35.0) g/dl RDW 11.9 (11.0-16.0) % Plt Count 275 (160-400) X10*3/uL MPV 9.2 L (9.4-12.3) fL Immature Gran % (Auto) 0.3 (0.0-0.4) % Neut % (Auto) 68.9 (45-73) % Lymph % (Auto) 23.7 (20-40) % [place] % (Auto) 5.6 (2-11) % Eos % (Auto) 0.9 (0-4) % Baso % (Auto) 0.6 (0-2) % Lymph # (Auto) 2.5 (1.2-4.9) X10*3/uL [place] # (Auto) 0.6 (0.1-1.2) X10*3/uL Eos # (Auto) 0.1 (0.0-0.4) X10*3/uL Baso # (Auto) 0.1 (0.0-0.2) X10*3/uL Abs Immat Gran (auto) 0.03 (0.00-0.03) X10*3/uL Absolute Neuts (auto) 7.3 (2.0-8.3) x10*3/uL Absolute Nucleated RBC 0.000 (0.0-0.012) X10*3/uL Nucleated RBC % (auto) 0.0 (0.0-0.2) /100WBC Sodium 142 (135-145) mmol/L Potassium 3.4 (3.3-5.1) mmol/L Chloride 104 (96-108) mmol/L Carbon Dioxide 27 (22-29) mmol/L Anion Gap 14 (12-20) BUN 9 (9-16) mg/dL Creatinine 0.96 (0.5-1.4) mg/dL Estim Creat Clear Calc 94.5 Estimated GFR > 60 Random Glucose 99 (60-115) mg/dL Calcium 9.6 (8.4-10.2) mg/dL Magnesium 2.1 (1.6-2.6) mg/dL Total Bilirubin 0.8 (0.0-1.0) mg/dL Direct Bilirubin 0.2 (0.0-0.5) mg/dL AST 13 (5-31) U/L ALT 9 (0-31) U/L Alkaline Phosphatase 82 (39-117) U/L Total Protein 7.6 (6.5-8.0) g/dL Albumin 4.6 (3.5-5.0) g/dL Independent Interpretation I performed an independent interpretation of an: EKG and CT Scan (normal ) Interpretation: Rate: 84 Rhythm: NSR [place]: normal Normal P waves. Normal VICKI. Normal QRS complex. ST T wave : no GABRIELLA, nonspecific ST T wave changes ant leads qTC: 470 prior studies: no acute ischemia The study has been interpreted contemporaneously by me. . Radiology Impression Discussion of test interpretation with radiology: I have reviewed the radiologist's reading. Independent Historian Clinical information obtained from an independent historian. History obtained from or confirmed by: EMS External Record Review External record reviewed: Inpatient record Prescription Management I considered prescription management with: Other Discharge Plan Discharge Clinical Impression: Dizziness Patient Disposition: Home, Self-Care Instructions: Vertigo (ED), Dizziness (ED) Additional Instructions: return for numbness, weakness, vision changes or any other concerns. slow movements over the next few days, no sudden shifting movements, take your time getting up. Prescriptions: New meclizine 25 mg tablet 25 mg PO TID PRN (Reason: dizziness) Qty: 30 0RF No Action valacyclovir 1 gram tablet 1,000 mg PO DAILY clonazepam 0.5 mg tablet 0.25 mg PO BID gabapentin 300 mg capsule 300 mg PO DAILY tizanidine 2 mg tablet 2 mg PO TID PRN Biktarvy 50-200-25 mg tablet 1 tab PO DAILY quetiapine [Seroquel] 200 mg tablet 200 mg PO DAILY omeprazole 40 mg capsule,delayed release(DR/EC) 40 mg PO DAILY Culturelle 10 billion cell capsule 1 cap PO DAILY propranolol 10 mg tablet 10 mg PO TID PRN (Reason: anxiety) Stand Alone Forms: Work/School Release Interventions: ED Discharge Assessment Last Done: 02/05/24 01:31 Discharge Date/Time: 02/05/24 01:32
[2024-02-04] MEDS: 0.9 % Sodium Chloride 1,000 ML 999 ML IV (23:41)
[2024-02-04] MEDS: Meclizine HCl 25 MG TABLET PO (23:41)
[2024-02-04 23:46] LABS: MANUAL DIFF FLAG NO
[2024-02-04 23:48] LABS: Basophils Absolute Auto 0.1 X10*3/uL (0.0-0.2); Basophils Percent Auto 0.6 % (0-2); Eosinophils Absolute Auto 0.1 X10*3/uL (0.0-0.4); Eosinophils Percent Auto 0.9 % (0-4); Hematocrit 41.3 % (37.0-47.0); Hemoglobin 14.8 g/dl (12.0-16.0); Imm Gran Abs Auto 0.03 X10*3/uL (0.00-0.03); Imm Gran Pct Auto 0.3 % (0.0-0.4); Lymphocytes Absolute Auto 2.5 X10*3/uL (1.2-4.9); Lymphocytes Percent Auto 23.7 % (20-40); Mean Corpuscular HGB Conc 35.8 g/dl (31.0-35.0); Mean Corpuscular Hemoglobin 33.3 pg (27.0-33.0); Mean Corpuscular Volume 92.8 fL (80.0-98.0); Mean Platelet Volume 9.2 fL (9.4-12.3); Monocytes Absolute Auto 0.6 X10*3/uL (0.1-1.2); Monocytes Percent Auto 5.6 % (2-11); Neutrophils Absolute Auto 7.3 x10*3/uL (2.0-8.3); Neutrophils Percent Auto 68.9 % (45-73); Platelet Count 275 X10*3/uL (160-400); Red Blood Count 4.45 X10*6/uL (4.20-5.50); Red Cell Distribution Width 11.9 % (11.0-16.0); White Blood Count 10.6 X10*3/uL (4.8-10.8)
[2024-02-05 00:05] LABS: Alanine Aminotransferase 9 U/L (0-31); Albumin Level 4.6 g/dL (3.5-5.0); Alkaline Phosphatase 82 U/L (39-117); Anion Gap 14 (12-20); Aspartate Amino Transferase 13 U/L (5-31); Bilirubin Direct 0.2 mg/dL (0.0-0.5); Bilirubin Total 0.8 mg/dL (0.0-1.0); Blood Urea Nitrogen 9 mg/dL (9-16); Calcium 9.6 mg/dL (8.4-10.2); Carbon Dioxide 27 mmol/L (22-29); Chloride 104 mmol/L (96-108); Creatinine Clr Calc Pharmacy 94.5; Estimated Glomerular Filt Rate > 60; Glucose Random 99 mg/dL (60-115); Magnesium 2.1 mg/dL (1.6-2.6); Potassium 3.4 mmol/L (3.3-5.1); Sodium 142 mmol/L (135-145); Total Protein 7.6 g/dL (6.5-8.0)
[2024-02-05 00:40] VITALS: BP 105/50; PULSE 82; RESP 15; TEMP 36.6; O2SAT 97
[2024-02-05 01:31] VITALS: BP 111/56; PULSE 86; RESP 14; TEMP 36.4; O2SAT 98
== END 2024-02-05 01:32 | disposition home or self-care (01) ==
PROVIDERS: Emergency Provider Emergency Medicine
DX: R42 Dizziness and giddiness (principal); Z21 Asymptomatic human immunodeficiency virus [HIV] infection status; J45.909 Unspecified asthma, uncomplicated; Z79.899 Other long term (current) drug therapy
CPT/HCPCS: 36415; 70450; 80048; 80076; 83735; 85025; 93005; 96360; 99284; 99285

== ENCOUNTER → 2024-02-04 23:00 | Outpatient (BNV) | payer MEDICARE, MEDICAID, SELFPAY | PROVIDERS: Emergency Provider Emergency Medicine; Visit Provider Internal Medicine Cardiovascular Disease | DX: R94.31 Abnormal electrocardiogram [ECG] [EKG] (principal) | CPT/HCPCS: 93010 ==

== ENCOUNTER 2024-04-06 08:53 | Outpatient (AMB) | payer MEDICARE, MEDICAID, SELFPAY ==
--- NOTE | 2024-04-06 08:59 | A.OFFVIS_ITS ---
Vital Signs 3 04/06/24 09:07 Height 5 ft 7 in Weight 172 lb BMI 26.9 BP 120/66 Blood Pressure Location Lt brachial Position Sitting Pulse 108 H Intake Visit Reasons: Hernia Intake Note: Patient is seen in office for evaluation and treatment of an umbilical hernia. Pt c/o: was seen by Dr Contreras in the past for the same issue, still feels a lump, uses a wrap to help keep it in, painful, does lots of walking, reducible, denies n/v/d/c CT: Supervisor Home Energy Consultant Required: No Accompanied by: Self / Same As Patient Allergies citalopram [From Celexa] Allergy (Unknown, Verified 04/06/24 09:06) Unknown sulindac Allergy (Unknown, Verified 04/06/24 09:06) Unknown sulfamethoxazole [From Bactrim] Allergy (Verified 04/06/24 09:06) Unknown trimethoprim [From Bactrim] Allergy (Verified 04/06/24 09:06) Unknown Medication List - Last Reconciled 04/06/24 by Amador Adame MD [id number] ala 50-200-25 mg (Biktarvy) 1 tab PO DAILY clonazepam 0.25 mg PO BID omeprazole 40 mg PO DAILY propranolol 10 mg PO TID PRN quetiapine (Seroquel) 200 mg PO DAILY valacyclovir 1,000 mg PO DAILY HPI Comments Details: 33-year-old female patient presenting with palpable lump in the upper abdomen. This is been present for at least and has gradually increased in size. She notes the lump to increase in size with standing and lifting but then reduces while in bed. She occasionally needs to put pressure on the abdomen and feels gurgling when she does this. She is now started wearing an abdominal binder which also helps keep the hernia reduced. She previously underwent CT abdomen and pelvis which reveals a large upper abdominal hernia with a hernia sac measuring up to 5 cm. There is also a small umbilical hernia. She reports no symptoms from the umbilicus. She denies nausea, vomiting, fever or chills. She denies any previous surgery in this location. She is requesting repair of this ventral hernia. [facility] Medical History Herpes simplex Anxiety Depression demise, greater than 22 weeks, antepartum, single gestation Smoker delivery due to maternal disorder Right ovarian cyst HIV (human immunodeficiency virus infection) Hernia of abdominal cavity Surgical History Previous delivery, antepartum condition or complication S/P left oophorectomy S/p partial hysterectomy with remaining cervical stump Family History Other No known health problems Social History Alcohol intake: unknown Patient Tobacco Use Status: Current everyday Tobacco user Cigarette Packs Per Day: 1 Review of Systems Const All systems reviewed & are unremarkable except as noted in HPI and below Denies chills, Denies fever(s), Denies headache(s), Denies poor appetite and Denies weakness ENT Denies headache(s) Card Denies chest pain, Denies irregular heart rhythm, Denies palpitations and Denies dyspnea Resp Denies cough, Denies excessive phlegm production and Denies dyspnea GI Denies abdominal pain, Denies bloating, Denies change in bowel habits, Denies constipation, Denies heartburn, Denies diarrhea, Denies nausea and Denies vomiting Denies urinary frequency Musc Denies back pain, Denies muscle weakness and Denies numbness Skin/Breast Denies changing lesions and Denies unusual bruising Neuro Denies headache(s), Denies numbness, Denies paresthesias and Denies weakness Psych Denies anxiety and Denies depression Endo Denies palpitations Ace/Lymph Denies lymphadenopathy Physical Exam Vital Signs: Last Vital Signs Pulse 108 H 04/06/24 09:07 BP 120/66 04/06/24 09:07 BMI result Body Mass Index 26.9 Const General: cooperative and no acute distress Nutritional Appearance: well nourished Orientation/consciousness: patient oriented x3 Limitations: no limitations HEENT Head: Yes normocephalic and Yes atraumatic Ears: hearing grossly normal bilaterally Resp Effort & Inspection: normal respiratory effort, no audible wheezes, no cough and no respiratory distress Cardio Jugular venous distension: no JVD GI Other: Obvious ventral hernia in the upper abdomen measuring at least 5 cm in diameter. The hernia increases in size with Valsalva maneuvers. Bowel sounds are heard within the hernia sac. Patient is placed in a supine position in the hernia easily reduces with light pressure. No palpable umbilical hernia appreciated. Inspection: Yes normal to inspection Abdomen image: 2 1. Site of ventral in the upper abdomen hernia Skin Other: Warm, dry, no rash Neuro General: patient oriented x3 Extrem General: Yes no clubbing, cyanosis or edema Assessment & Plan Assessment & Plan (1) Ventral hernia: Code(s): K43.9 - Ventral hernia without obstruction or gangrene Category: Medical Qualifiers: Obstruction and gangrene presence: without obstruction or gangrene Q ualified Code(s): K43.9 - Ventral hernia without obstruction or gangrene (2) Umbilical hernia: Code(s): K42.9 - Umbilical hernia without obstruction or gangrene Category: Medical Qualifiers: Obstruction and gangrene presence: without obstruction or gangrene Q ualified Code(s): K42.9 - Umbilical hernia without obstruction or gangrene Plan 33-year-old female patient presenting with a ventral hernia of long duration which has gradually increased in size. On examination she does have a large hernia sac measuring at least 5 cm in diameter. The hernia is easily reducible with light pressure. She was also noted to have an umbilical hernia which is asymptomatic and not palpable at this time. I recommended repair of the ventral hernia with mesh and after discussion of the procedure, risks, and alternatives, she consents to the surgery. Coding Level of Care Code New Pt Level 4 (76157) Diagnoses Ventral hernia without obstruction or gangrene K43.9 Obstruction and gangrene presence: without obstruction or gangrene Umbilical hernia without obstruction and without gangrene K42.9 Obstruction and gangrene presence: without obstruction or gangrene
[2024-04-06 09:07] VITALS: BP 120/66; PULSE 108; BMI 26.9
== END 2024-04-06 09:29 | disposition home or self-care (01) ==
PROVIDERS: Visit Provider Surgery
DX: K43.9 Ventral hernia without obstruction or gangrene (principal); K42.9 Umbilical hernia without obstruction or gangrene
CPT/HCPCS: 99204; 99214

== ENCOUNTER → 2024-04-06 08:53 | Outpatient (BNVA) | payer MEDICARE, MEDICAID, SELFPAY | PROVIDERS: Visit Provider Surgery | DX: K43.9 Ventral hernia without obstruction or gangrene (principal); K42.9 Umbilical hernia without obstruction or gangrene | CPT/HCPCS: 99202 ==

== ENCOUNTER 2024-07-11 05:54 | Day surgery (SDC) | payer MEDICARE, MEDICAID, SELFPAY ==
[2024-07-06 13:16] VITALS: BMI 26.9
[2024-07-11] VITALS (17 sets, daily range): BP systolic 93–112; BP diastolic 37–73; PULSE 50–81; RESP 12–19; TEMP 36–37.1; O2SAT 93–100; BMI 30.4; BMI 30.5
[2024-07-11] MEDS: Lactated Ringers 1,000 ML 100 ML IVCONT (06:40)
--- NOTE | 2024-07-11 07:00 | P.CONAN_ITS ---
Documented by User: Mary Carbone NP 07/06/24 13:58 HPI - Anesthesia Eval Consult details Narrative: 33yo F for Repair Hernia Ventral Reducible PMFSH Active Problems Active Problems: All Active Problems Umbilical hernia (Acute) Ventral hernia (Acute) Asthma (Acute) HIV (human immunodeficiency virus infection) (Acute) Anxiety (Acute) Depression (Acute) Smoker (Acute) Hernia of abdominal cavity (Acute) Herpes simplex (Acute) demise, greater than 22 weeks, antepartum, single gestation (Acute) Previous delivery, antepartum condition or complication (Acute) delivery due to maternal disorder (Acute) Right ovarian cyst (Acute) S/P left oophorectomy (Acute) S/p partial hysterectomy with remaining cervical stump (Acute) Past Medical History Medical History Herpes simplex Anxiety Depression demise, greater than 22 weeks, antepartum, single gestation Smoker delivery due to maternal disorder Right ovarian cyst HIV (human immunodeficiency virus infection) Hernia of abdominal cavity Family History Family History Other No known health problems Surgical History Surgical History Previous delivery, antepartum condition or complication S/P left oophorectomy S/p partial hysterectomy with remaining cervical stump Social History Social History Are you a primary child care team lead to a significant other at home: No Alcohol intake: unknown Patient Tobacco Use Status: Current everyday Tobacco user Cigarette Packs Per Day: 10 Cigarettes Per Day: 200.0 Substance Use Frequency: Daily Have you been hit, kicked, punched, or otherwise hurt by someone within the past year? If so, by whom?: No Are you DNR?: No Advance Directives: No Advance Directives Information Provided: Yes Recently lost weight without trying: No Eating poorly because of decreased appetite: No Nutrition Risks: No Nutritional Risk Patient : No (partial hysterectomy) Meds Allergies Allergy/AdvReac Type Severity Reaction Status Date / Time citalopram [From Celexa] Allergy Unknown Unknown Verified 04/06/24 09:06 sulfamethoxazole Allergy Unknown Unknown Verified 07/06/24 13:13 [From Bactrim] sulindac Allergy Unknown Unknown Verified 04/06/24 09:06 trimethoprim [From Bactrim] Allergy Unknown Unknown Verified 07/06/24 13:13 Home Medications ?Medication ?Instructions ?Recorded ?Confirmed ?Last Taken ?Type bictegravir 50 mg-emtricitabine 1 tab PO DAILY 03/21/23 07/06/24 Unknown History 200 mg-tenofovir alafenam 25 mg tablet (Biktarvy) clonazepam 0.5 mg tablet 0.25 mg PO BID 03/21/23 07/11/24 07/11/24 05:30 History 1 mgm omeprazole 40 mg capsule,delayed 40 mg PO DAILY 03/21/23 07/11/24 07/11/24 05:30 History release quetiapine 200 mg tablet (Seroquel) 200 mg PO DAILY 03/21/23 07/06/24 Unknown History valacyclovir 1 gram tablet 1,000 mg PO DAILY 03/21/23 07/06/24 Unknown History propranolol 10 mg tablet 10 mg PO TID PRN anxiety 05/23/23 07/06/24 Unknown History Exam Height,Weight and Vital Signs: Height 5 ft 7 in Weight 78.018 kg Pertinent Lab Results Pertinent Lab Results: Laboratory Tests 02/04/24 23:40 WBC 10.6 Hgb 14.8 Hct 41.3 Plt Count 275 Sodium 142 Potassium 3.4 Chloride 104 Carbon Dioxide 27 BUN 9 Creatinine 0.96 Narrative Narrative: EKG 01/2024 Vent. Rate : 084 BPM Atrial Rate : 084 BPM P-R Int : 152 ms QRS Dur : 094 ms QT Int : 398 ms P-R-T Axes : 051 051 036 degrees QTc Int : 470 ms Normal sinus rhythm Low voltage QRS Borderline ECG No previous ECGs available Assessment and Plan Assessment Anesthesia Assessment: Chart Reviewed Documented by User: Sheridan Hall DO 07/11/24 07:05 [facility] Past Medical History Medical History Herpes simplex Anxiety Depression demise, greater than 22 weeks, antepartum, single gestation Smoker delivery due to maternal disorder Right ovarian cyst HIV (human immunodeficiency virus infection) Hernia of abdominal cavity Family History Family History Other No known health problems Family history of problems with anesthesia: No Surgical History Surgical History Previous delivery, antepartum condition or complication S/P left oophorectomy S/p partial hysterectomy with remaining cervical stump History of Problems with Anesthesia: No Social History Social History Are you a primary child care team lead to a significant other at home: No Alcohol intake: unknown Patient Tobacco Use Status: Current everyday Tobacco user Cigarette Packs Per Day: 10 Cigarettes Per Day: 200.0 Substance Use Frequency: Daily Have you been hit, kicked, punched, or otherwise hurt by someone within the past year? If so, by whom?: No Are you DNR?: No Advance Directives: No Advance Directives Information Provided: Yes Recently lost weight without trying: No Eating poorly because of decreased appetite: No Nutrition Risks: No Nutritional Risk Patient : No (partial hysterectomy) Meds Allergies Allergy/AdvReac Type Severity Reaction Status Date / Time citalopram [From Celexa] Allergy Unknown Unknown Verified 04/06/24 09:06 sulfamethoxazole Allergy Unknown Unknown Verified 07/06/24 13:13 [From Bactrim] sulindac Allergy Unknown Unknown Verified 04/06/24 09:06 trimethoprim [From Bactrim] Allergy Unknown Unknown Verified 07/06/24 13:13 Home Medications ?Medication ?Instructions ?Recorded ?Confirmed ?Last Taken ?Type bictegravir 50 mg-emtricitabine 1 tab PO DAILY 03/21/23 07/06/24 Unknown History 200 mg-tenofovir alafenam 25 mg tablet (Biktarvy) clonazepam 0.5 mg tablet 0.25 mg PO BID 03/21/23 07/11/24 07/11/24 05:30 History 1 mgm omeprazole 40 mg capsule,delayed 40 mg PO DAILY 05/07/11/24 07/11/24 05:30 History release quetiapine 200 mg tablet (Seroquel) 200 mg PO DAILY 03/21/23 07/06/24 Unknown History valacyclovir 1 gram tablet 1,000 mg PO DAILY 03/21/23 07/06/24 Unknown History propranolol 10 mg tablet 10 mg PO TID PRN anxiety 05/23/23 07/06/24 Unknown History Exam Exam Date and Time: 07/11/24 0700 Height,Weight and Vital Signs: Height 5 ft 7 in Weight 78.018 kg Vital Signs Temperature 98.7 F 07/11/24 06:28 Pulse Rate 75 07/11/24 06:28 Respiratory Rate 16 07/11/24 06:28 Blood Pressure 107/64 07/11/24 06:28 Pulse Oximetry 98 07/11/24 06:28 Oxygen Delivery Method Room Air 07/11/24 06:28 Temperature 98.7 F 07/11/24 06:28 Pulse Rate 75 07/11/24 06:28 Respiratory Rate 16 07/11/24 06:28 Blood Pressure 107/64 07/11/24 06:28 Pulse Oximetry 98 07/11/24 06:28 Oxygen Delivery Method Room Air 07/11/24 06:28 Airway Mallampati Class: I TM Dist: >3cm Neck ROM: Full Loose/Missing/Broken Teeth: Yes (several broken molars per patient; no loose teeth) Heart: S1S2 Lungs: CTAB Assessment and Plan Assessment Anesthesia Assessment: Anesthesia Plan Discussed and Chart Reviewed Final Anesthetic Review Family History of Problems with Anesthesia: No History of Problems with Anesthesia: No NPO: Yes ASA Class: II Final Preanesthetic Review: No Changes in Pt Med Stat, Meds/Allgs Chart Reviewed, Consent Obtained/Reviewed and Anes Risks/Benef Reviewed Patient Risk: Low Procedure Risk: Low Anesthetic Plan Anesthetic Plan: GA and Agree w/ Assess. and Plan Disposition: Standard PACU
--- NOTE | 2024-07-11 07:25 | MHC.SHP ---
Pre-Procedural Eval Section A - 24 Hr Update-Section A only Date of Service: 07/11/24 The patient is an INPATIENT: No Changes since office visit: Yes Patient answered all questions; No Cold of Flu in the past 2 weeks, No New Medical Problems and No Changes in Medication The patient has been examined within 24 hours of the surgical procedure. The History & Physical has been completed within 30 days and I have reviewed it.: No Section B - Complete if H&P > 30 days Chief Complaint: Ventral hernia without obstruction or gangrene Details of Present Illness: No change from previous evaluation Relevant Family History (Specify if Yes): No Relevant Social History: None Present Medications: see Short Stay [facility] assessment Medical History: No relevant PMH History of Previous Operations: No relevant previous surgery Allergies: Allergies Allergy/AdvReac Type Severity Reaction Status Date / Time citalopram [From Celexa] Allergy Unknown Unknown Verified 04/06/24 09:06 sulfamethoxazole Allergy Unknown Unknown Verified 07/06/24 13:13 [From Bactrim] sulindac Allergy Unknown Unknown Verified 04/06/24 09:06 trimethoprim [From Bactrim] Allergy Unknown Unknown Verified 07/06/24 13:13 Review of Systems Sugical H&P ROS: Negative: Constitution, Cardiovascular, Gastrointestinal and Integumentary Exam Surgical H&P Exam: Normal: Lungs (Clear without respiratory distress), Normal: Abdomen (Soft and nondistended, hernia and epigastrium) and Normal: Skin Plan Diagnosis/Plan: Unchanged I have reviewed the history and physical and performed a pertinent physical examination on my patient. No changes have occurred unless specified. Time Spent With Patient Time: Total time managing care of this patient today ____ minutes.
--- NOTE | 2024-07-11 08:23 | W.PM.OPN ---
Operative Note Operative Note Date of Service: 07/11/24 Narrative: Preoperative diagnosis: Reducible ventral hernia, 2 cm Postoperative diagnosis: Same Procedure: Repair of reducible ventral hernia with mesh Surgeon: Amador Adame MD Logistics Planning Engineer: Jemima Ahumada PA-C Anesthesia: General LMA Indications for procedure: 33-year-old female patient presenting with complaints of a palpable lump in the epigastrium which is gradually increasing in size and occasionally causing discomfort. The lump is easily reducible but does increase with Valsalva maneuvers. Operative findings: 2.5 cm hernia defect noted in the mid upper abdomen. This was repaired using a 6.4 cm round Ventralex mesh. Specimen: None Estimated blood loss: 2 mL Complications: None Procedure details: Patient was brought to the OR and placed in a supine position. After administering general anesthesia the patient's abdomen was prepped with ChloraPrep and draped in a sterile fashion. A surgical time-out was called the consent confirmed. Patient received preoperative antibiotics and Venodyne boots were in place. Local anesthesia was infiltrated in the midline directly over the palpable hernia. An incision was then made in the midline and carried out through subcutaneous tissue up to the hernia sac. The hernia sac was then dissected down to the fascial defect. The hernia sac was then reduced into the preperitoneal space. A preperitoneal space was further dissected below the muscle fascia. A 6.4 cm round Ventralex mesh was then obtained. This was deployed within the preperitoneal space and secured in 4 quadrants using a 0 Tycron suture. The fascia was then closed over the mesh using [id number] 0 Tycron sutures. Wounds were then irrigated with saline solution and suctioned dry. Subcutaneous tissue and dermis were then reapproximated using interrupted 3-0 Polysorb sutures. Skin was closed using a running subcuticular 4-0 Polysorb suture. Steri-Strips, 2 x 2 gauze and Tegaderm were then applied. The patient tolerated the procedure well. Sponge, instrument, and needle counts reported as correct. The patient was transferred to PACU in stable condition.
[2024-07-11] MEDS: HYDROmorphone HCl 0.5 MG/0.5 ML SYRINGE 0.25 MG IVPUSH ×2 (08:56→09:15)
[2024-07-11] MEDS: Acetaminophen 325 MG TABLET 650 MG PO ×2 (09:13→20:24)
--- NOTE | 2024-07-11 11:58 | PHA.MEDREC ---
Addendum entered by Aisha Betts RPh 07/11/24 12:21: Reviewed by [facility] Original Note: Pharmacy Consult ? Medication Reconciliation Pharmacy reviewed med rec done by nursing. I updated a few medications I noticed didnt match what we had in claims and I verified the medications with patient. I verified Clonazepan 0.5mg tab; originally the nurse imputed 0.25mg BID and in claims it looked like she was doing it TID, I spoke to the patient and she confirmed she is taking it 0.5mg TID. Also Propanolol 10mg originally had 10mg TID PRN Anxiety but in claims looked like she was taking it 10mg BID and patient confirmed she is doing it BID inbetween the Clonazepam dosing if absolutely needed for anxiety. I also confirmed the Valacyclovir dosing and directions. In the list the nurse imputed Valcyclovie 1gm, 1000mg daily and looking in claims it looked like she was taking a Valacyclovir 500mg tab once daily and when I verified them and the patient states she is taking 500mg daily and has been taking this for a while and never been in 1000mg daily . I updated and completed the med rec.
[2024-07-11] MEDS: Morphine Sulfate 4 MG/ML CARTRIDGE IVPUSH ×2 (12:00→17:54)
[2024-07-11 12:05] LABS: Estimated Glomerular Filt Rate > 60
[2024-07-11] MEDS: Nicotine 21 MG PATCH.TD24 TRANSDERMA (12:28)
[2024-07-11] MEDS: QUEtiapine Fumarate 200 MG TABLET PO (12:28)
[2024-07-11] MEDS: Bictegrav/Emtricit/Tenofov Ala TABLET 1 TAB PO (12:28)
[2024-07-11] MEDS: valACYclovir HCL 500 MG TABLET PO (12:28)
[2024-07-11] MEDS: Dextrose 5 % and Lactated Ring 1,000 ML 100 ML IVCONT ×2 (12:28→17:55)
[2024-07-11] MEDS: clonazePAM 0.5 MG TABLET PO ×2 (15:20→20:24)
[2024-07-11] MEDS: oxyCODONE HCl Immed Release 5 MG TABLET PO ×2 (15:20→21:48)
[2024-07-11] MEDS: Zolpidem Tartrate 5 MG TABLET PO (21:53)
[2024-07-12] MEDS: Morphine Sulfate 4 MG/ML CARTRIDGE IVPUSH ×3 (00:01→08:34)
[2024-07-12] MEDS: 0.9 % Sodium Chloride Flush 3 ML SYRINGE IVFLUSH (00:04)
[2024-07-12 03:34] VITALS: BP 118/63; PULSE 72; RESP 16; TEMP 36.2; O2SAT 99
[2024-07-12] MEDS: Dextrose 5 % and Lactated Ring 1,000 ML 100 ML IVCONT (03:49)
[2024-07-12] MEDS: Omeprazole 40 MG CAPSULE.DR PO (06:11)
[2024-07-12] MEDS: oxyCODONE HCl Immed Release 5 MG TABLET PO (06:11)
--- NOTE | 2024-07-12 06:56 | HO.STUDPN_ITS ---
Subjective Subjective Date of Service: 07/12/24 <[facility] Last Filed: 07/12/24 07:33> 07/12/24 <Jemima Ahumada PA-C - Last Filed: 07/12/24 07:48> 07/12/24 <Amador Adame MD - Last Filed: 07/12/24 09:25> Interval History: Pt reports constant LUQ/LLQ pain 7/10 overnight with some relief from analgesia No nausea, vomiting; eating solids, ambulating well Passing flatus, no BM Reports some GERD symptoms last night, relieved with omeprazole <[facility] Filed: 07/12/24 07:33> Constitutional Constitutional: Reports no additional constitutional complaints and Reports difficulty sleeping (2/2 to pain) <[facility] Filed: 07/12/24 07:33> Eyes Eyes: Reports no additional eye complaints <[facility] Filed: 07/12/24 07:33> ENT Ears, Nose, Mouth, and Throat: Reports system reviewed and no additional complaints, except as documented <[facility] Filed: 07/12/24 07:33> Cardiovascular Cardiovascular: Reports no additional cardiovascular complaints <[facility] Filed: 07/12/24 07:33> Respiratory Respiratory: Reports no additional respiratory complaints <[facility] Filed: 07/12/24 07:33> Gastrointestinal Gastrointestinal: Reports abdominal pain, Denies bloating, Reports dyspepsia, Denies nausea and Denies vomiting <[facility] Filed: 07/12/24 07:33> Genitourinary Genitourinary: Reports no additional female genitourinary complaints <[facility] Filed: 07/12/24 07:33> Musculoskeletal Musculoskeletal: Reports no additional musculoskeletal complaints <[facility] Filed: 07/12/24 07:33> Integumentary/Breasts Skin/Breast: Reports no additional skin complaints <[facility] Filed: 07/12/24 07:33> Physical Exam 2 Vital Signs: Vital Signs: Last Vital Signs Temp 97.2 F 07/12/24 03:34 Pulse 72 07/12/24 03:34 Resp 16 07/12/24 03:34 BP 118/63 07/12/24 03:34 Pulse Ox 99 07/12/24 03:34 O2 Del Method Room Air 07/12/24 03:34 O2 Flow Rate 2 07/11/24 10:45 BMI result Body Mass Index 30.5 <[facility] Filed: 07/12/24 07:33> BP 99/56 - 118/63, HR 51-72, O2 95-99% on RA, afebrile <[facility] Filed: 07/12/24 07:33> Const: General: cooperative, comfortable, no acute distress, alert and awake <[facility] Filed: 07/12/24 07:33> Orientation/consciousness: patient oriented x3 <[facility] Filed: 07/12/24 07:33> HEENT: Head: Yes normocephalic and Yes atraumatic <[facility] Filed: 07/12/24 07:33> Ears: hearing grossly normal bilaterally <[facility] Filed: 07/12/24 07:33> Face and sinus: Yes face symmetric <[facility] [place] Filed: 07/12/24 07:33> Eyes: Sclerae: sclerae normal <[facility] Filed: 07/12/24 07:33> EOM: EOMs intact bilaterally [facility] [place] Filed: 07/12/24 07:33> Neck: Neck: Yes no JVD <[facility] Filed: 07/12/24 07:33> Resp: Effort & Inspection: normal respiratory effort <[facility] Filed: 07/12/24 07:33> Auscultation: clear to auscultation bilaterally, no crackles, no rales, no rhonchi and no wheezes <[facility] Filed: 07/12/24 07:33> Cardio: Jugular venous distension: no JVD <[facility] [place] Filed: 07/12/24 07:33> Rate: regular rate <[facility] [place] Filed: 09/05/24 07:33> Rhythm: regular rhythm <[facility] Filed: 07/12/24 07:33> Heart sounds: S1 normal heart sound present, S2 normal heart sound present, no gallops, no murmurs and no rubs [facility] Filed: 07/12/24 07:33> Peripheral pulses: Peripheral pulses 2+ throughout <[facility] Last Filed: 07/12/24 07:33> GI: Inspection: Yes incision (c/d/i) <[facility] Last Filed: 07/12/24 07:33> Inspection: Yes incision (dressing c/d/i) <Jemima Ahumada PA-C Last Filed: 07/12/24 07:48> Palpation (GI): Soft to palpation, Tenderness to palpation present (GI) in the LLQ and in the LUQ, no guarding, not rigid, No hepatosplenomegaly present and no masses <[facility] Filed: 07/12/24 07:33> Auscultation: normal bowel sounds <[facility] Filed: 07/12/24 07:33> : General: Yes no CVA tenderness <[facility] Filed: 07/12/24 07:33> Back/Spine/Pelvis: Back: no CVA tenderness <[facility] Filed: 07/12/24 07:33> Skin: General skin exam: no rashes or lesions noted <[facility] Filed: 07/12/24 07:33> Neuro: General: patient oriented x3 and moves all extremities <[facility] Filed: 07/12/24 07:33> Extrem: General: Yes normal to inspection, Yes capillary refill normal and Yes no pedal edema <[facility] Filed: 07/12/24 07:33> Objective Data Active Medications Acetaminophen (Acetaminophen 325 Mg Tablet) 650 mg PO Q6H PRN PRN Reason: Pain, Mild (Pain Scale 1-3), fever or headache Last Admin: 07/11/24 20:24 Dose: 650 mg Documented By: ALEXEY Albuterol Sulfate (Albuterol Sulfate (0.083%) 2.5 Mg/3 Ml Vial.Neb) 2.5 mg INHALE ONCE PRN PRN Reason: Shortness of Breath/Wheezing Bictegravir/Emtricitabine/Tenofovir (Bictegrav/Emtricit/Tenofov Ala Tablet) 1 tab PO DAILY [facility] Last Admin: 07/11/24 12:28 Dose: 1 tab Documented By: CONNER Calcium Carbonate (Calcium Carbonate 750 Mg Tab.Chew) 750 mg PO Q4H PRN PRN Reason: Heartburn Clonazepam (Clonazepam 0.5 Mg Tablet) 0.5 mg PO TID [facility] Last Admin: 07/11/24 20:24 Dose: 0.5 mg Documented By: ALEXEY Enoxaparin Sodium (Enoxaparin Sodium 40 Mg/0.4 Ml Syringe) 40 mg SUBCUT Q24H [facility] Dextrose/Lactated Ringer's (D5lr) 1,000 mls @ 100 mls/hr IVCONT .Q10H [facility] Last Admin: 07/12/24 03:49 Dose: 100 mls/hr Documented By: GREYSON Magnesium Hydroxide (Milk Of Magnesia 30 Ml Oral.Susp) 30 ml PO DAILY PRN PRN Reason: Constipation Melatonin (Melatonin 3 Mg Tablet) 6 mg PO BEDTIME PRN PRN Reason: Insomnia Morphine Sulfate (Morphine Sulfate 4 Mg/Ml Cartridge) 4 mg IVPUSH Q4H PRN; Protocol PRN Reason: Pain, Severe (Pain Scale 7-10) Last Admin: 07/12/24 03:49 Dose: 4 mg Documented By: GREYSON Nicotine (Nicotine 21 Mg Patch.Td24) 21 mg TRANSDERMA DAILY [facility] Last Admin: 07/11/24 12:28 Dose: 21 mg Documented By: CONNER Omeprazole (Omeprazole 40 Mg Capsule.Dr) 40 mg PO DAILY@0630 [facility] Last Admin: 07/12/24 06:11 Dose: 40 mg Documented By: GREYSON Ondansetron HCl (Ondansetron Hcl 4 Mg/2 Ml Vial) 4 mg IVPUSH Q8H PRN PRN Reason: Nausea and Vomiting Oxycodone HCl (Oxycodone Hcl Immed Release 5 Mg Tablet) 5 mg PO Q6H PRN PRN Reason: Pain, Moderate(Pain Scale 4-6) Last Admin: 07/12/24 06:11 Dose: 5 mg Documented By: GREYSON Propranolol HCl (Propranolol Hcl 10 Mg Tablet) 10 mg PO BID PRN; Protocol PRN Reason: anxiety Quetiapine Fumarate (Quetiapine Fumarate 200 Mg Tablet) 200 mg PO DAILY [facility] Last Admin: 07/11/24 12:28 Dose: 200 mg Documented By: CONNER Sodium Chloride (0.9 % Sodium Chloride Flush 3 Ml Syringe) 3 ml IVFLUSH QSHIFT [facility] Last Admin: 07/12/24 06:12 Dose: Not Given Documented By: GREYSON Non-Admin Reason: IV Running Valacyclovir HCl (Valacyclovir Hcl 500 Mg Tablet) 500 mg PO DAILY [facility] Last Admin: 07/11/24 12:28 Dose: 500 mg Documented By: CONNER Zolpidem Tartrate (Zolpidem Tartrate 5 Mg Tablet) 5 mg PO BEDTIME PRN PRN Reason: Insomnia Last Admin: 07/11/24 21:53 Dose: 5 mg Documented By: ALEXEY <[facility] - Last Filed: 07/12/24 07:33> Labs CBC & Chem 7: 07/11/24 11:46 <[facility] Last Filed: 07/12/24 07:33> Labs: Laboratory Results - last 24 hr 07/11/24 11:46 Estim Creat Clear Calc 83.0 Estimated GFR > 60 <[facility] Filed: 07/12/24 07:33> Assessment and Plan (1) Umbilical hernia: Status: Acute <[facility] Filed: 07/12/24 07:33> Assessment and Plan: POD1 ventral hernia repair w/ mesh Continue ambulation and IS use Morphine 4mg q4hr and oxycodone 5mg q6hrs prn for pain control Seen by Jennifer Gonsales MS3 <[facility] Filed: 07/12/24 07:33> POD1 ventral hernia repair w/ mesh Continue ambulation and IS use Morphine 4mg q4hr and oxycodone 5mg q6hrs prn for pain control Seen by Jennifer Gonsales MS3 Agree with above assessment and plan. Patient POD #1 s/p repair of reducible ventral hernia with mesh. Doing well post op, needing IV and PO analgesics. VSS. Abd exam benign, soft with appropriate post op tenderness, clean dressing. Will increase oxycodone to 10mg PO, make tylenol ATC. If comfortable on oral analgesics, stable for dc to home later today. Patient comfortable with plan. Bowel regimen. <Jemima Ahumada PA-C - Last Filed: 07/12/24 07:48> POD1 ventral hernia repair w/ mesh Continue ambulation and IS use Morphine 4mg q4hr and oxycodone 5mg q6hrs prn for pain control Seen by Jennifer Gonsales MS3 Agree with above assessment and plan. Patient POD #1 s/p repair of reducible ventral hernia with mesh. Doing well post op, needing IV and PO analgesics. VSS. Abd exam benign, soft with appropriate post op tenderness, clean dressing. Will increase oxycodone to 10mg PO, make tylenol ATC. If comfortable on oral analgesics, stable for dc to home later today. Patient comfortable with plan. Bowel regimen. Patient seen and examined and agree with the above assessment and plan. We will check back later to see if patient is ready for discharge to home with oral analgesics. Patient encouraged to ambulate in the hallways. <Amador Adame MD - Last Filed: 07/12/24 09:25> Quality Stroke Does the patient have a stroke diagnosis?: No <Jemima Ahumada PA-C - Last Filed: 07/12/24 07:48> VTE Prior VTE?: No <Jemima Ahumada PA-C - Last Filed: 07/12/24 07:48> VTE Risk Level:: Surgical - moderate <[facility]ennifer Gonsales - Last Filed: 07/12/24 07:33> VTE Device Contraindication: N/A - Device Ordered <Jennifer Gonsales - Last Filed: 07/12/24 07:33> VTE Drug Contraindication: N/A - Med Ordered <[facility] Gonsales - Last Filed: 07/12/24 07:33>
[2024-07-12 07:51] VITALS: BP 114/61; PULSE 90; RESP 16; TEMP 36.1; O2SAT 97
[2024-07-12] MEDS: valACYclovir HCL 500 MG TABLET PO (08:30)
[2024-07-12] MEDS: clonazePAM 0.5 MG TABLET PO (08:30)
[2024-07-12] MEDS: Nicotine 21 MG PATCH.TD24 TRANSDERMA (08:30)
[2024-07-12] MEDS: Enoxaparin Sodium 40 MG/0.4 ML SYRINGE SUBCUT (08:30)
[2024-07-12] MEDS: Bictegrav/Emtricit/Tenofov Ala TABLET 1 TAB PO (08:30)
[2024-07-12] MEDS: Acetaminophen 325 MG TABLET 975 MG PO (08:30)
[2024-07-12] MEDS: Docusate Sodium 100 MG CAPSULE PO (08:30)
--- NOTE | 2024-07-12 08:58 | HO.POSTANES ---
Post Anesthesia Evaluation Post Anesthesia Evaluation Date of Service: 07/12/24 Vital Signs: Vital Signs Temp Pulse Resp BP Pulse Ox O2 Del Method 07/12/24 07:51 96.9 F 90 16 114/61 97 Room Air 07/12/24 03:34 97.2 F 72 16 118/63 99 Room Air 07/11/24 23:59 60 16 110/58 L 97 Room Air Anesthesia: General Endotracheal-GETA Mental Status: Awake Pain Control: Satisfactory Nausea/Vomiting: None Hydration: Adequate Anesthesia-Related Issues: No Anes. Related Issues
[2024-07-12] MEDS: oxyCODONE HCl Immed Release 5 MG TABLET 10 MG PO (10:56)
--- NOTE | 2024-07-12 11:45 | PC.NURSE ---
Pt d/c home with girlfriend at ~1145. IV removed with catheter tip still intact, no s/s infection noted. Medications brought up from pharmacy. All discharge instructions gone over with pt who verbalized understanding.
--- NOTE | 2024-07-12 12:49 | MHC.CM.PN ---
PT DISCHARGED PRIOR TO BEING SEEN BY CM PER EMR, PT LIVES WITH HER S/O AND IS INDEPENDENT WITH CARE NO PCP OR HCP ON FILE
== END 2024-07-12 11:44 | disposition home or self-care (01) ==
LOC: HO.SSS 05:55 → HO.S3 11:10
PROVIDERS: Visit Provider Surgery
PROC: (CPT 49591; principal; 2024-07-11 07:30)
DX: K43.9 Ventral hernia without obstruction or gangrene (principal); B20 Human immunodeficiency virus [HIV] disease; F32.A Depression, unspecified; F41.9 Anxiety disorder, unspecified; B00.9 Herpesviral infection, unspecified; Z79.899 Other long term (current) drug therapy; Z88.2 Allergy status to sulfonamides; F17.210 Nicotine dependence, cigarettes, uncomplicated; Z98.890 Other specified postprocedural states
CPT/HCPCS: 49591; 36415; 82565; C1781; J0690; J1100; J1170; J1650; J1885; J2250; J2270; J2405; J2704; J2795; J3010

== ENCOUNTER → 2024-07-11 05:54 | Outpatient (BNV) | payer MEDICARE, MEDICAID, SELFPAY | PROVIDERS: Visit Provider Surgery | DX: K42.9 Umbilical hernia without obstruction or gangrene (principal) | CPT/HCPCS: 49591; 99213 ==

== ENCOUNTER 2024-07-17 09:10 | Outpatient (AMB) | payer MEDICARE, MEDICAID, SELFPAY ==
--- NOTE | 2024-07-17 09:15 | MHC.OFFVIS ---
Vital Signs 07/17/24 09:23 Height 5 ft 4 in Weight 173 lb BMI 29.7 BP 133/63 Blood Pressure Location Lt brachial Position Sitting Pulse 97 Intake Visit Reasons: s/p ventral hernia repair Intake Note: Patient is seen in office for post op assessment post Repair of reducible ventral hernia. 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 [employer] Required: No Accompanied by: Self / Same As Patient Allergies citalopram [From Celexa] Allergy (Unknown, Verified 07/17/24 09:23) Unknown sulfamethoxazole [From Bactrim] Allergy (Unknown, Verified 07/17/24 09:23) Unknown sulindac Allergy (Unknown, Verified 07/17/24 09:23) Unknown trimethoprim [From Bactrim] Allergy (Unknown, Verified 07/17/24 09:23) Unknown Medication List - Last Reconciled 07/17/24 by Amador Adame MD [id number] [id number] 50-200-25 mg (Biktarvy) 1 tab PO DAILY clonazepam 0.5 mg PO TID docusate sodium (Colace) 100 mg PO BID omeprazole 40 mg PO DAILY oxycodone 5 mg PO Q4H PRN propranolol 10 mg PO BID PRN quetiapine (Seroquel) 200 mg PO DAILY valacyclovir 500 mg PO DAILY HPI Comments Details: 33-year-old female patient returning 1 week following repair of a ventral hernia in the upper abdomen. She does report constipation and some mild abdominal pain in the left upper quadrant adjacent to the incision. In general she feels much improved and is happy that her hernias gone. She reports that her partner is in the emergency room with AFib and is upset about this. [facility] Medical History Herpes simplex Anxiety Depression demise, greater than 22 weeks, antepartum, single gestation Smoker delivery due to maternal disorder Right ovarian cyst HIV (human immunodeficiency virus infection) Hernia of abdominal cavity Surgical History S/P repair of ventral hernia (07/11/24) Previous delivery, antepartum condition or complication S/P left oophorectomy S/p partial hysterectomy with remaining cervical stump Family History Other No known health problems Social History Household Members: Family Housing: Apartment Are you a primary home care administrator to a significant other at home: No Do you presently have visiting nurse or other home services: No Alcohol intake: unknown Patient Tobacco Use Status: Current everyday Tobacco user Tobacco use type: Cigarette Cigarette Packs Per Day: 0.5 Cigarettes Per Day: 10.0 e-Cigarette/Vaping Use: Never Used Second Hand Smoke Exposure: Yes Substance Use Type: Marijuana Physical Exam Vital Signs: Last Vital Signs Pulse 97 07/17/24 09:23 BP 133/63 07/17/24 09:23 BMI result Body Mass Index 29.7 Const General: no acute distress Nutritional Appearance: well nourished Orientation/consciousness: patient oriented x3 Resp Effort & Inspection: normal respiratory effort GI Other: Midline incision is clean, dry, and intact with intact Steri-Strips. No hernia noted with Valsalva maneuvers. No evidence of seroma or infection. Skin General skin exam: no rashes or lesions noted Neuro General: patient oriented x3 Assessment & Plan Assessment & Plan (1) Ventral hernia: Code(s): K43.9 - Ventral hernia without obstruction or gangrene Category: Medical Qualifiers: Obstruction and gangrene presence: without obstruction or gangrene Qualified Code(s): K43.9 - Ventral hernia without obstruction or gangrene Plan 33-year-old female patient status post repair of a ventral hernia in the upper abdomen. She tolerated the procedure well the wounds are healing nicely. She should continue to avoid lifting greater than 10 lb for total of 1 month. I have asked her to return in 1 month for repeat examination. She is welcome to call sooner for any new concerns. Coding Level of Care Code Global (14524) Diagnoses Ventral hernia without obstruction or gangrene K43.9 Obstruction and gangrene presence: without obstruction or gangrene
[2024-07-17 09:23] VITALS: BP 133/63; PULSE 97; BMI 29.7
== END 2024-07-17 09:33 | disposition home or self-care (01) ==
PROVIDERS: Visit Provider Surgery
DX: K43.9 Ventral hernia without obstruction or gangrene (principal)
CPT/HCPCS: 99212

== ENCOUNTER → 2024-07-17 09:10 | Outpatient (BNVA) | payer MEDICARE, MEDICAID, SELFPAY | PROVIDERS: Visit Provider Surgery | DX: Z48.815 Encounter for surgical aftercare following surgery on the digestive system (principal); Z98.890 Other specified postprocedural states | CPT/HCPCS: 99212 ==

== ENCOUNTER 2024-07-31 14:55 | Outpatient (AMB) | payer MEDICARE, MEDICAID, SELFPAY ==
[2024-07-31 14:56] VITALS: BP 108/64; PULSE 91; O2SAT 96
--- NOTE | 2024-07-31 14:56 | A.OFFPC_ITS ---
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 Allergies citalopram [From Celexa] Allergy (Unknown, Verified 07/31/24 15:11) Unknown sulfamethoxazole [From Bactrim] Allergy (Unknown, Verified 07/31/24 15:11) Unknown sulindac Allergy (Unknown, Verified 07/31/24 15:11) Unknown trimethoprim [From Bactrim] Allergy (Unknown, Verified 07/31/24 15:11) Unknown Medication List - Last Reconciled 07/31/24 by Lillie Hannah PA-C [id number]-fmicbtbd-nzwkwno ala 50-200-25 mg (Biktarvy) 1 tab PO DAILY clonazepam 0.5 mg PO TID omeprazole 40 mg PO DAILY propranolol 10 mg PO BID PRN quetiapine (Seroquel) 200 mg PO DAILY valacyclovir 500 mg PO DAILY Tobacco use date assessed: 07/31/24 Dental Screening Dental Screen Date: 07/31/24 Did you have a dental visit in the last 12 months?: No Did you have a dental problem in the last 6 months where you did not have access to dental care?: No HPI New Patient HPI Details 33-year-old female with past medical his tory of herpes simplex, depression, anxiety, HIV, asthma coming to the office for the 1st time. In review of the notes patient recently had ventral hernia repair with Dr. Adame 07/11/2024 was seen for postop 07/17/2024 advised avoid lifting greater than 10 lb for a total of 1 month and return at that time for repeat examination. Currently she is seeing [facility] for anxiety and being treated with Seroquel, clonazepam, and propranolol with good managed of her symptoms. She follows with them every 3 months but does have issues with scheduling and is unable to get her prescriptions on several occasions. In the past she has been diagnosed with degenerative disc disease in the lumbar spine and continues to have pain radiating into bilateral hips and legs for the past 2 years and was previously treated with gabapentin was very mild relief. He is also interested in smoking cessation and was given the patches while admitted and had good success with this. [facility] Medical History Herpes simplex Anxiety Depression demise, greater than 22 weeks, antepartum, single gestation Smoker delivery due to maternal disorder Right ovarian cyst HIV (human immunodeficiency virus infection) Hernia of abdominal cavity Surgical History S/P repair of ventral hernia (07/11/24) Previous delivery, antepartum condition or complication S/P left oophorectomy S/p partial hysterectomy with remaining cervical stump Family History Other No known health problems Social History Household Members: Family Housing: House Are you a primary care services manager to a significant other at home: No Do you presently have visiting nurse or other home services: No Alcohol intake: unknown Patient Tobacco Use Status: Current everyday Tobacco user Tobacco use type: Cigarette Cigarette Packs Per Day: 0.5 Cigarettes Per Day: 10.0 e-Cigarette/Vaping Use: Never Used Second Hand Smoke Exposure: Yes Substance Use Type: Marijuana service: No Current occupational status: disabled Cognitive needs: No Hearing needs: No Vision needs: No Questionnaire PHQ-9 Over the last 2 weeks, how often have you been bothered by any of the following problems? 1. Little interest or pleasure in doing things: not at all 2. Feeling down, depressed, or hopeless: not at all 3. Trouble falling or staying asleep, or sleeping too much: not at all 4. Feeling tired or having little energy: not at all 5. Poor appetite or overeating: not at all 6. Feeling bad about yourself - or that you are a failure or have let yourself or your family down: not at all 7. Trouble concentrating on things, such as reading the newspaper or watching television: not at all 8. Moving or speaking so slowly that other people could have noticed. Or the opposite - being so fidgety or restless that you have been moving around a lot more than usual: not at all 9. Thoughts that you would be better off or of hurting yourself in some way: not at all Total score: 0 Depression Screening Interpretation: Negative Depression Screening Done: Yes 70090 - PHQ-9 Billing: Yes Source: Developed by Drs. Sarthak Villatoro, Elizabeth Jasso, Norman Hunt and colleagues, with an educational kimberly from [employer]. Thrive Questionnaire Date Thrive assessed: 07/31/24 I am a: Patient What is your living situation today?: I have a steady place to live Within the past 12 months, did the food you bought not last and you didn't have the money to get more?: Never true Within the past 12 months, did you worry whether your food would run out before you got money to buy more?: Never true Do you have trouble paying for medicines?: No Do you have trouble getting transportation to medical appointments?: Yes Do you have trouble paying your heating and electricity bill?: No Do you have trouble taking care of your child, family member or friend?: No Do you have trouble with day-to-day activities such as bathing, preparing meals, shopping, managing finances, etc.?: No Are you currently unemployed and looking for a job?: No Are you interested in more education?: No Please select the resources that you would like help with: Transportation and None Currently or been in a relationship where the following occur: No concerns reported THRIVE Score: 1 AUDIT C Alcohol Use Questionnaire (AUDIT-C) 1. How often do you have a drink containing alcohol?: Never 2. How many drinks containing alcohol do you have on a typical day when you are drinking?: 1 or 2 3. How often do you have six or more drinks on one occasion?: Never Total Score: 0 ESTHER-7 AMB Questionnaire ESTHER-7 Date ESTHER - 7 assessed: 07/31/24 (patient is on RX ) Feeling nervous, anxious, or on edge: 3 = Nearly every day Not being able to stop or control worryin = Nearly every day Worrying too much about different things: 3 = Nearly every day Trouble relaxin = Nearly every day Being so restless that it is hard to sit still: 1 = Several days Becoming easily annoyed or irritable: 1 = Several days Feeling afraid as if something awful might happen: 1 = Several days Total ESTHER-7 score (0-4 normal; 5-9 mild; 10-14 moderate; 15-21 severe): 15 Source: Developed by Drs. Sarthak Villatoro, Elizabeth Jasso, Norman Hunt and colleagues, with an educational kimberly from [employer]. ESTHER-7 Assessment Billing ESTHER-7 Assessment Tool: ESTHER-7 Assessment 17644 Physical exam (Primary Care) Vital Signs: Last Vital Signs Pulse 91 07/31/24 14:56 BP 108/64 07/31/24 14:56 Pulse Ox 96 07/31/24 14:56 Oxygen Delivery Method Room Air 07/31/24 14:56 BMI result Body Mass Index 30.0 Tobacco/Smoking Status: Tobacco use Status Tobacco use date assessed 07/31/24 07/31/24 15:09 Patient Tobacco Use Status Current everyday Tobacco 07/31/24 15:09 Tobacco use type Cigarette 07/31/24 15:09 e-Cigarette/Vaping Use Never Used 07/31/24 15:09 Are you ready to quit: Yes Tobacco cessation counseling provided: Yes Items discussed: Nicotine replacement Relapse Prevention: discussed extending NRT and discussed dietary, exercise and/or lifestyle changes CPT code: 98686 - 4-10 Minutes PHQ-9: PHQ-9 Score PHQ-9: Total score 0 07/31/24 15:09 Depression Screening Interpretation: Negative Thrive Assessment: Date of Thrive Assessment Date Thrive assessed 07/31/24 07/31/24 15:09 Currently or been in a relationship where the following occur: No concerns reported Back/Spine/Pelvis Other: Pain to palpation of lumbar spine in paraspinous muscles. Positive left straight leg raise. Pain to palpation of bilateral hips and pain with abduction of left hip Assessment and Plan Assessment & Plan (1) Low back pain: Code(s): M54.50 - Low back pain, unspecified Plan: Lumbar spine x-ray ordered. Patient was given lidocaine patches and baclofen to be used as needed for pain. (2) Left hip pain: Code(s): M25.552 - Pain in left hip Plan: Left hip x-ray ordered and given baclofen lidocaine patches as needed for pain. (3) Ventral hernia: Code(s): K43.9 - Ventral hernia without obstruction or gangrene Qualifiers: Obstruction and gangrene presence: without obstruction or gangrene Qualified Code(s): K43.9 - Ventral hernia without obstruction or gangrene Plan: Has been doing well since the surgery and denies any fevers or abdominal pain or incisional pain. She does mentioned the Steri-Strips have been bothersome and has been falling off. Steri-Strips were removed today at today's appointment and incision is intact and dry without evidence of dehiscence. (4) HIV (human immunodeficiency virus infection): Comment: She is on Biktarvy. Last CD4 count undetectable 12/2022 and viral load 917. She takes Biktarvy daily Code(s): B20 - Human immunodeficiency virus [HIV] disease Plan: Continue to follow up with Infectious Disease and continue on current med regimen. (5) Anxiety: Comment: Continue medication Follow [facility] every 3 months Code(s): F41.9 - Anxiety disorder, unspecified Plan: Continue on current med regimen and referral placed for new psychiatric provider. (6) Depression: Code(s): F32.A - Depression, unspecified Plan: Continue on current med regimen and referral placed for new psychiatric provider. (7) Smoker: Code(s): F17.200 - Nicotine dependence, unspecified, uncomplicated Plan: Given nicotine patch today strongly advised to stop smoking. Plan This note was constructed using voice recognition software. While every effort has been made to ensure accuracy and director perioperative, still areas may have been included sometimes these areas may affect the content or meeting of the given symptoms. Total time spent caring for the patient today was 30 minutes. This includes time spent before the visit reviewing the chart, time spent during the visit, and time spent after the visit and documentation. Orders: Orders Free T4 (Free Thyroxine) Today Z00.00 - Encounter for general adult medical examination without abnormal findings TSH reflex Free T4 Today Z00.00 - Encounter for general adult medical examination without abnormal findings XR lumbar spine 1V Today K43.9 - Ventral hernia without obstruction or gangrene, M54.50 - Low back pain, unspecified XR hip LT 1V Today M25.552 - Pain in left hip Vitamin B12 and Folate Today Z00.00 - Encounter for general adult medical examination without abnormal findings Vitamin D 25-OH (D2 and D3) Today Z00.00 - Encounter for general adult medical examination without abnormal findings Lipid Panel Today Z00.00 - Encounter for general adult medical examination without abnormal findings Referrals Psychiatry Referral F41.9 - Anxiety disorder, unspecified Medications: New omeprazole 40 mg PO DAILY 90 caps 2RF baclofen 5 mg PO BEDTIME 20 tabs 0RF lidocaine 5% leave on most painful area for up to 12 hrs 1 patch topical DAILY 15 ea 1RF nicotine 1 patch transdermal DAILY 28 ea 0RF Coding Level of Care Code New Pt Level 4 (45588) Diagnoses Low back pain M54.50 Left hip pain M25.552 Ventral hernia without obstruction or gangrene K43.9 Obstruction and gangrene presence: without obstruction or gangrene HIV (human immunodeficiency virus infection) B20 Anxiety F41.9 Depression F32.A Smoker F17.200 Additional Codes ESTHER-7 Assessment Billing - ESTHER-7 Assessment Tool: ESTHER-7 Assessment 19551 ([id number]) Vital Signs *Quality* - CPT code: 05177 - 4-10 Minutes ([id number])
== END 2024-07-31 15:43 | disposition home or self-care (01) ==
DX: M54.50 Low back pain, unspecified (principal); M25.552 Pain in left hip; K43.9 Ventral hernia without obstruction or gangrene; B20 Human immunodeficiency virus [HIV] disease; F41.9 Anxiety disorder, unspecified; F32.A Depression, unspecified; F17.200 Nicotine dependence, unspecified, uncomplicated

== ENCOUNTER → 2024-07-31 14:55 | Outpatient (BNVA) | payer MEDICARE, MEDICAID, SELFPAY | DX: M54.50 Low back pain, unspecified (principal); M25.552 Pain in left hip; K43.9 Ventral hernia without obstruction or gangrene; B20 Human immunodeficiency virus [HIV] disease; F41.9 Anxiety disorder, unspecified; F32.A Depression, unspecified; F17.200 Nicotine dependence, unspecified, uncomplicated; Z71.6 Tobacco abuse counseling | CPT/HCPCS: 96127; 99202 ==

== ENCOUNTER 2024-08-24 10:24 | Outpatient (AMB) | payer MEDICARE, MEDICAID, SELFPAY ==
--- NOTE | 2024-08-24 10:31 | MHC.OFFVIS ---
Vital Signs 08/24/24 10:32 Height 5 ft 4 in Weight 181 lb BMI 31.1 BP 131/58 L Blood Pressure Location Lt brachial Position Sitting Pulse 85 Intake Visit Reasons: 1 month follow up hernia repair Intake Note: Patient is seen in office for one month follow up visit, post ventral hernia repair. 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 Required: No Accompanied by: Self / Same As Patient Allergies citalopram [From Celexa] Allergy (Unknown, Verified 08/24/24 10:31) Unknown sulfamethoxazole [From Bactrim] Allergy (Unknown, Verified 08/24/24 10:31) Unknown sulindac Allergy (Unknown, Verified 08/24/24 10:31) Unknown trimethoprim [From Bactrim] Allergy (Unknown, Verified 08/24/24 10:31) Unknown Medication List - Last Reconciled 08/24/24 by Amador Adame MD baclofen 5 mg PO BEDTIME hvotyvgne-voynqmxi-viawiwi ala 50-200-25 mg (Biktarvy) 1 tab PO DAILY clonazepam 0.5 mg PO TID lidocaine 5% 1 patch topical DAILY nicotine 1 patch transdermal DAILY omeprazole 40 mg PO DAILY propranolol 10 mg PO BID PRN quetiapine (Seroquel) 200 mg PO DAILY valacyclovir 500 mg PO DAILY HPI Comments Details: 33-year-old female patient returning 1 month following repair of a ventral hernia in the upper abdomen. She tolerated the procedure well and denies any ongoing abdominal symptoms. She denies pain, nausea, vomiting or bowel changes. [facility], [facility] Medical History Herpes simplex Anxiety Depression demise, greater than 22 weeks, antepartum, single gestation Smoker delivery due to maternal disorder Right ovarian cyst HIV (human immunodeficiency virus infection) Hernia of abdominal cavity Surgical History S/P repair of ventral hernia (07/11/24) Previous delivery, antepartum condition or complication S/P left oophorectomy S/p partial hysterectomy with remaining cervical stump Family History Other No known health problems Social History Household Members: Family Housing: House Are you a primary restorative care technician to a significant other at home: No Do you presently have visiting nurse or other home services: No Alcohol intake: unknown Patient Tobacco Use Status: Current everyday Tobacco user Tobacco use type: Cigarette Cigarette Packs Per Day: 0.5 Cigarettes Per Day: 10.0 e-Cigarette/Vaping Use: Never Used Second Hand Smoke Exposure: Yes Substance Use Type: Marijuana service: No Current occupational status: disabled Cognitive needs: No Hearing needs: No Vision needs: No Physical Exam Vital Signs: Last Vital Signs Pulse 85 08/24/24 10:32 BP 131/58 L 08/24/24 10:32 BMI result Body Mass Index 31.1 Const General: no acute distress Nutritional Appearance: average body habitus Orientation/consciousness: patient oriented x3 Resp Effort & Inspection: normal respiratory effort GI Other: Upper midline incision is clean, dry, and intact without redness, discharge or hernia recurrence. No changes noted with Valsalva maneuvers. Neuro General: patient oriented x3 Assessment & Plan Assessment & Plan (1) Ventral hernia: Code(s): K43.9 - Ventral hernia without obstruction or gangrene Category: Medical Qualifiers: Obstruction and gangrene presence: without obstruction or gangrene Qualified Code(s): K43.9 - Ventral hernia without obstruction or gangrene Plan Patient returns 1 month following repair of a ventral hernia with mesh. She tolerated the procedure well the wounds have healed nicely. She may resume normal activity without restrictions and should follow up as needed. Coding Level of Care Code Global (37602) Diagnoses Ventral hernia without obstruction or gangrene K43.9 Obstruction and gangrene presence: without obstruction or gangrene
[2024-08-24 10:32] VITALS: BP 131/58; PULSE 85; BMI 31.1
== END 2024-08-24 11:07 | disposition home or self-care (01) ==
PROVIDERS: Visit Provider Surgery
DX: K43.9 Ventral hernia without obstruction or gangrene (principal)
CPT/HCPCS: 99212

== ENCOUNTER → 2024-08-24 10:24 | Outpatient (BNVA) | payer MEDICARE, MEDICAID, SELFPAY | PROVIDERS: Visit Provider Surgery | DX: K43.9 Ventral hernia without obstruction or gangrene (principal); Z98.890 Other specified postprocedural states | CPT/HCPCS: 99212 ==

== ENCOUNTER 2024-09-19 10:28 | Outpatient (REF) | payer MEDICARE, MEDICAID, SELFPAY ==
[2024-09-19 10:54] LABS: MANUAL DIFF FLAG NO
[2024-09-19 11:15] LABS: Basophils Absolute Auto 0.1 X10*3/uL (0.0-0.2); Basophils Percent Auto 0.7 % (0-2); Eosinophils Absolute Auto 0.2 X10*3/uL (0.0-0.4); Eosinophils Percent Auto 2.5 % (0-4); Hematocrit 41.4 % (37.0-47.0); Hemoglobin 14.2 g/dl (12.0-16.0); Imm Gran Abs Auto 0.06 X10*3/uL (0.00-0.03); Imm Gran Pct Auto 0.8 % (0.0-0.4); Lymphocytes Absolute Auto 2.4 X10*3/uL (1.2-4.9); Lymphocytes Percent Auto 33.9 % (20-40); Mean Corpuscular HGB Conc 34.3 g/dl (31.0-35.0); Mean Corpuscular Hemoglobin 33.2 pg (27.0-33.0); Mean Corpuscular Volume 96.7 fL (80.0-98.0); Mean Platelet Volume 9.7 fL (9.4-12.3); Monocytes Absolute Auto 0.4 X10*3/uL (0.1-1.2); Monocytes Percent Auto 5.8 % (2-11); Neutrophils Absolute Auto 4.1 x10*3/uL (2.0-8.3); Neutrophils Percent Auto 56.3 % (45-73); Platelet Count 241 X10*3/uL (160-400); Red Blood Count 4.28 X10*6/uL (4.20-5.50); Red Cell Distribution Width 12.2 % (11.0-16.0); White Blood Count 7.2 X10*3/uL (4.8-10.8)
[2024-09-19 11:48] LABS: Cholesterol 200 mg/dL (<200); HDL Cholesterol 40 mg/dL (>40); LDL Cholesterol Calculated 123 mg/dL (<100); Triglycerides 188 mg/dL (<150)
[2024-09-19 11:53] LABS: Alanine Aminotransferase 15 U/L (0-31); Albumin Level 4.4 g/dL (3.5-5.0); Alkaline Phosphatase 79 U/L (39-117); Anion Gap 12 (12-20); Aspartate Amino Transferase 30 U/L (5-31); Bilirubin Total 0.5 mg/dL (0.0-1.0); Blood Urea Nitrogen 8 mg/dL (9-16); Calcium 9.6 mg/dL (8.4-10.2); Carbon Dioxide 25 mmol/L (22-29); Chloride 105 mmol/L (96-108); Cholesterol 201 mg/dL (<200); Estimated Glomerular Filt Rate > 60; Glucose Random 103 mg/dL (60-115); HDL Cholesterol 40 mg/dL (>40); LDL Cholesterol Calculated 124 mg/dL (<100); Potassium 3.8 mmol/L (3.3-5.1); Sodium 138 mmol/L (135-145); Total Protein 7.1 g/dL (6.5-8.0); Triglycerides 189 mg/dL (<150)
[2024-09-19 11:55] LABS: HBS Num1 71.03 mIU/mL (0-7.99); HBc Num1 0.09 S/CO (0.00-0.79); HBsAGNum1 0.32 S/CO (0.00-0.99); Hepatitis A Antibody IgG REACTIVE (Nonreactive); Hepatitis B Core Antibody Nonreactive (Nonreactive); Hepatitis B Surface Antigen Negative (Negative); ~HepC Num1 0.15 S/CO (0.00-0.79); ~Hepatitis A Antibody IgG 8.43 S/CO (0.00-0.99); ~Hepatitis B Surface Antibody REACTIVE (Nonreactive); ~Hepatitis C Antibody Nonreactive (Nonreactive)
[2024-09-19 11:56] LABS: Free T4 (Free Thyroxine) 0.92 ng/dL (0.71-1.85); Syphilis Screen Nonreactive (Nonreactive)
[2024-09-19 12:08] LABS: Folate 11.1 ng/mL (> or = 4.0); Vitamin B12 284 pg/mL (200-900)
[2024-09-19 12:50] LABS: Reflex LDLD? No
[2024-09-19 13:35] LABS: CT PCR NOT DETECTED (Not Detect.); NG PCR NOT DETECTED (Not Detect.)
[2024-09-21 02:43] LABS: Rubella IgG Antibody 5.16 Index
[2024-09-21 08:58] LABS: HIV RNA PCR Qn Copies NOT DETECTED copies/mL (NOT DETECTED); HIV RNA PCR Qn Log Copies NOT DETECTED (NOT DETECTED)
[2024-09-22 05:09] LABS: TS Negative Control Passed; TS Panel A 0; TS Panel B 0; TS Positive Control Passed; TSpotTB Negative (Negative)
[2024-09-24 15:39] LABS: Vitamin D 25-OH, D2 <4 ng/mL; Vitamin D 25-OH, D3 19 ng/mL; Vitamin D 25-OH, Total 19 ng/mL (30-100)
[2024-09-24 22:44] LABS: Absolute CD3 Count 2041 cells/uL (840-3060); Absolute CD4 Count 899 cells/uL (490-1740); Absolute CD8 Count 1189 cells/uL (180-1170); Absolute Lymphocytes 2496 cells/uL (850-3900); CD4 CD8 Ratio 0.76 (0.86-5.00); Percent CD3 Cells 82 % (57-85); Percent CD4 Cells 36 % (30-61); Percent CD8 Cells 48 % (12-42)
== END 2024-09-19 10:29 | disposition home or self-care (01) ==
LOC: HO.LAB 10:28
PROVIDERS: Visit Provider Internal Medicine
DX: Z00.00 Encounter for general adult medical examination without abnormal findings (principal); Z21 Asymptomatic human immunodeficiency virus [HIV] infection status; Z11.59 Encounter for screening for other viral diseases; Z11.3 Encounter for screening for infections with a predominantly sexual mode of transmission; Z79.899 Other long term (current) drug therapy; Z72.89 Other problems related to lifestyle
CPT/HCPCS: 36415; 80053; 80061; 82306; 82607; 82746; 84439; 84443; 85025; 86359; 86360; 86481; 86704; 86706; 86708; 86735; 86762; 86765; 86780; 86787; 86803; 87340; 87491; 87536; 87591

== ENCOUNTER 2024-10-13 10:28 | Emergency (ER) | payer MEDICARE, MEDICAID, SELFPAY ==
--- NOTE | ~2024-10-13 | XR_ITS ---
EXAMINATION: XR CHEST CLINICAL INFORMATION: COUGH, SOB COMPARISON: Cough and shortness of breath. TECHNIQUE: 2 views of the chest were obtained. FINDINGS: The lungs are expanded with patchy opacity seen in the lingular segment suspicious for developing infiltrate. There is a 5 mm nodular density overlying the right midlung question osteoid osteoma of overlying rib versus granuloma. Rest of lungs are clear. There are multiple calcified lymph nodes or nodules in middle mediastinum question granulomatous disease. The heart size and pulmonary vascularity is normal. No gross bony abnormality seen. XR/XR chest 2V IMPRESSION: 1. Patchy opacity in the lingular segment suspicious for developing infiltrate. 2. 5 mm nodular density overlying the right midlung question osteoid osteoma of overlying rib versus granuloma. 3. Multiple calcified lesions in middle mediastinum anterior to trachea question granulomatous disease. Correlate with outpatient CT. Electronically signed by: Shant Sharma MD 10/13/2024 12:02 PM [facility]
[2024-10-13 10:35] VITALS: BP 108/66; PULSE 114; RESP 19; TEMP 36.9; O2SAT 98
[2024-10-13 11:27] LABS: Influenza A PCR NEGATIVE (Negative); Influenza B PCR NEGATIVE (Negative); Resp Syncy Virus RNA Qual PCR NEGATIVE (Negative); SARS COV2 PCR INHOUSE NEGATIVE (Negative)
--- NOTE | 2024-10-13 11:49 | ED.URI ---
HPI - URI/Sore Throat General Chief Complaint: Upper Respiratory Symptoms Stated Complaint: cough chest tightness Time Seen by Provider: 10/13/24 11:49 Source: patient Mode of arrival: ambulatory Limitations: no limitations History of Present Illness ED Provider: NIR BOTELLO PA-C HPI Narrative: 34-year-old female with past medical history significant for exercise induced asthma, current tobacco smoker, anxiety, depression, HIV on medications with undetectable viral load presents to the ED today for evaluation of chest congestion and cough x2 days. States that her cough worsens when she lies down for bed at night. Her cough is productive of yellow sputum. States that her chest feels tight when she has to cough. Denies any chest pain. Reports associated chills yesterday. She has been taking cough drops at home with minimal relief. No other [id number] medications. She has not needed to use her inhaler. States that her son at home was recently treated for pneumonia. Denies fever, sore throat, chest pain, shortness of breath, wheezing, hemoptysis, rash. No recent travel or long car rides. Related Data Home Medications ?Medication ?Instructions ?Recorded ?Confirmed bictegravir 50 mg-emtricitabine 1 tab PO DAILY 03/21/23 08/24/24 200 mg-tenofovir alafenam 25 mg tablet (Biktarvy) clonazepam 0.5 mg tablet 0.5 mg PO TID 03/21/23 08/24/24 quetiapine 200 mg tablet (Seroquel) 200 mg PO DAILY 03/21/23 08/24/24 propranolol 10 mg tablet 10 mg PO BID PRN anxiety 05/23/23 08/24/24 valacyclovir 500 mg tablet 500 mg PO DAILY 07/11/24 08/24/24 Previous Rx's ?Medication ?Instructions ?Recorded baclofen 5 mg tablet 5 mg PO BEDTIME #20 tabs 07/31/24 lidocaine 5 % topical patch 1 patch topical DAILY #15 ea 07/31/24 nicotine 14 mg/24 hr daily 1 patch transdermal DAILY #28 ea 07/31/24 transdermal patch omeprazole 40 mg capsule,delayed 40 mg PO DAILY #90 caps 07/31/24 release amoxicillin 875 mg-potassium 1 tab PO BID 7 days #14 tabs 10/13/24 clavulanate 125 mg tablet benzonatate 100 mg capsule 100 mg PO BID PRN cough #20 caps 10/13/24 doxycycline monohydrate 100 mg 100 mg PO BID 7 days #14 caps 10/13/24 capsule Allergies Allergy/AdvReac Type Severity Reaction Status Date / Time citalopram [From Celexa] Allergy Unknown Unknown Verified 10/13/24 10:37 sulfamethoxazole Allergy Unknown Unknown Verified 10/13/24 10:37 [From Bactrim] sulindac Allergy Unknown Unknown Verified 10/13/24 10:37 trimethoprim [From Bactrim] Allergy Unknown Unknown Verified 10/13/24 10:37 Review of Systems Review of Systems: Constitutional: No fever, chills, fatigue, night sweats, weight changes ENT/Mouth: No ear pain, hearing loss, nasal congestion, sinus pain, rhinorrhea, sore throat Eyes: No eye pain, swelling, redness, vision changes, discharge Cardio: No chest pain, palpitations, CRUZ, orthopnea, peripheral edema Pulm: No SOB, cough, sputum, wheezing, dyspnea, hemoptysis, +cough GI: No nausea, vomiting, hematemesis, abdominal pain, diarrhea, constipation, hematochezia, melena : No irregular bleeding, dysuria, frequency, urgency, hesitancy, hematuria, flank pain, urinary flow changes, urinary incontinence or retention MSK: No back pain, neck pain, joint pain, myalgias Skin: No lesions, rashes Neuro: No weakness, numbness, paresthesias, LOC, dizziness, headache Psych: No anxiety/panic, depression, SI/HI, AH/VH All other systems reviewed and are negative. [facility] Past Medical History Attestation statement: The following information was validated with the patient. Source: old records reviewed and nursing notes reviewed Medical History Herpes simplex Anxiety Depression demise, greater than 22 weeks, antepartum, single gestation Smoker delivery due to maternal disorder Right ovarian cyst HIV (human immunodeficiency virus infection) Hernia of abdominal cavity Surgical History S/P repair of ventral hernia (07/11/24) Previous delivery, antepartum condition or complication S/P left oophorectomy S/p partial hysterectomy with remaining cervical stump Family History Family History Other No known health problems Social History Social History Household Members: Family Housing: House Are you a primary day care worker to a significant other at home: No Do you presently have visiting nurse or other home services: No Alcohol intake: unknown Patient Tobacco Use Status: Current everyday Tobacco user Tobacco use type: Cigarette Cigarette Packs Per Day: 0.5 Cigarettes Per Day: 10.0 e-Cigarette/Vaping Use: Never Used Second Hand Smoke Exposure: Yes Substance Use Type: Marijuana Advance Directives: No Advance Directives Information Provided: Yes Do you have a plan to hurt others: No Plan service: No Current occupational status: disabled Cognitive needs: No Hearing needs: No Vision needs: No Physical Exam Vital Signs: Vital Signs: Last Vital Signs Temp 98.9 F 10/13/24 12:31 Pulse 76 10/13/24 12:31 Resp 20 10/13/24 12:31 BP 117/58 L 10/13/24 12:31 Pulse Ox 99 10/13/24 12:31 O2 Del Method Room Air 10/13/24 12:31 BMI result Body Mass Index 30.0 tachycardic, vitals otherwise wnl General: Well appearing, in no acute distress. Skin: Warm, dry, intact. No rashes or lesions. Head: Normocephalic, atraumatic. EENT: Hearing is intact b/l. Conjunctiva clear. PERRLA. EOM intact. Moist mucous membranes.? Neck: Supple without LAD Cardiac: Chest wall symmetric. RRR. No MRG. No JVD. Lungs: Congested cough. No increased effort of breathing. No tripoding. Lungs CTA bilaterally Ext: Upper and lower extremities atraumatic, without tenderness, deformity, swelling or erythema. Full ROM throughout. no calf tenderness. Neuro: AOx3. Normal speech. Ambulating with steady gait. Psych: Appropriate mood and affect. Responds appropriately to questions. Course Course Course Narrative: 1245 -- patient tested negative for COVID, flu, RSV. Her chest x-ray shows patchy opacity 2 lingular segment of right long, suspicious for developing infiltrate. There are also incidental findings of a 5 mm nodule density overlying the right mid lung, possible osteoid osteoma of rib versus granuloma. Lungs are otherwise clear. There are multiple calcified lymph nodes or nodules in the middle mediastinum, question granulomatous disease. Recommending outpatient CT scan of chest. > I discussed all workup results with patient. She was given a dose of prednisone in the ED today. We discussed possible short course of prednisone outpatient however patient is immunocompromised. Will hold on prednisone. I considered treating patient with azithromycin however she does have history of QT prolongation. Will treat with Augmentin and doxycycline. Carlos Galloway sent to pharmacy for cough. I did inform patient that she needs to follow up with her primary care provider regarding chest x-ray results as she will require outpatient imaging. She verbalizes understanding. She has remained stable. She is not hypoxic. No longer tachycardic. Afebrile. Patient has remained stable throughout ED visit today. Discussed worrisome signs and symptoms and when to return to the ED. All questions answered at this time. Patient is agreeable with disposition and stable for discharge. Medications Administered Discontinued Medications Generic Name Dose Route Start Last Admin Trade Name Chuyq PRN Reason Stop Dose Admin Prednisone 40 mg 10/13/24 11:56 10/13/24 12:15 Prednisone 20 Mg Tablet PO 10/13/24 11:57 40 mg ONCE ONE Administration Medical Decision Making Medical Decision Making [facility] Narrative: 34-year-old female with past medical history significant for exercise induced asthma, current tobacco smoker, anxiety, depression, HIV on medications with undetectable viral load presents to the ED today for evaluation of chest congestion and cough x2 days. Patient is tachycardic to 114, afebrile, not hypoxic. She is nontoxic appearing and in NAD. He is lying comfortably on the exam bed. Congested cough noting. No tripoding or accessory muscle use. No increased effort of breathing. Lungs are CTA bilaterally. No calf tenderness bilaterally. Differential diagnosis includes viral syndrome, pneumonia, bronchitis. Unlikely strep throat, mono, [employer], retropharyngeal abscess, epiglottitis, peritonsillar abscess, lung abscess, empyema. Plan for viral swabs and cxr. Differential Diagnosis Differential Diagnoses: The differential diagnosis associated with the presentation includes As above Admission/Observation Not indicated Lab Data [facility] Lab Attestation statement: I reviewed the patient's lab results. As above Labs: Lab Results 10/13/24 Range/Units 10:43 Influenza Type A (PCR) NEGATIVE (Negative) Influenza Type B (PCR) NEGATIVE (Negative) RSV RNA Qual (PCR) NEGATIVE (Negative) SARS-CoV-2 RNA (RT-PCR) NEGATIVE (Negative) Independent Interpretation I performed an independent interpretation of an: Plain X-Ray Interpretation: CXR with patchy opacity to lingula Radiology Impression Discussion of test interpretation with radiology: I have reviewed the radiologist's reading. Radiologist Impression: EXAMINATION: XR CHEST CLINICAL INFORMATION: COUGH, SOB COMPARISON: Cough and shortness of breath. TECHNIQUE: 2 views of the chest were obtained. FINDINGS: The lungs are expanded with patchy opacity seen in the lingular segment suspicious for developing infiltrate. There is a 5 mm nodular density overlying the right midlung question osteoid osteoma of overlying rib versus granuloma. Rest of lungs are clear. There are multiple calcified lymph nodes or nodules in middle mediastinum question granulomatous disease. The heart size and pulmonary vascularity is normal. No gross bony abnormality seen. XR/XR chest 2V IMPRESSION: 1. Patchy opacity in the lingular segment suspicious for developing infiltrate. 2. 5 mm nodular density overlying the right midlung question osteoid osteoma of overlying rib versus granuloma. 3. Multiple calcified lesions in middle mediastinum anterior to trachea question granulomatous disease. Correlate with outpatient CT. Electronically signed by: Shant Sharma MD 10/13/2024 12:02 PM [facility] External Record Review External record reviewed: Inpatient record Prescription Management I considered prescription management with: Antibiotic (Augmentin, doxycycline) and Other (prednisone) Chronic Conditions Patient?s care impacted by: Other (asthma, HIV) Social Determinants Patient?s care significantly limited by Social Determinants of Health including: Other Social Determinant of Health Critical Care Time Critical Care Time Critical Care Time: No Discharge Plan Discharge Clinical Impression: CAP (community acquired pneumonia) Patient Disposition: Home, Self-Care Instructions: Community Acquired Pneumonia (ED) Additional Instructions: You were evaluated in the ED today for cough. Your chest xray shows findings concerning for a developing pneumonia to your right lung. I have sent 2 different antibiotics to your pharmacy (doxycycline and augmentin). Take these as prescribed over the next week. Do not skip any doses or stop these early as this can cause infection to persist or worsen. I have also send Carlos Galloway to your pharmacy to help with your cough. Follow-up with your primary care provider in 3-4 weeks for repeat chest x-ray to ensure resolution of pneumonia. Return with new or worsening symptoms. In the case of an emergency call 911. Your chest x-ray also shows the following incidental findings. These my be related to your HIV. I recommend you follow up with your primary care provider within the next month as you may require an outpatient CT scan. XR chest 2V IMPRESSION: 1. Patchy opacity in the lingular segment suspicious for developing infiltrate. 2. 5 mm nodular density overlying the right midlung question osteoid osteoma of overlying rib versus granuloma. 3. Multiple calcified lesions in middle mediastinum anterior to trachea question granulomatous disease. Correlate with outpatient CT. Prescriptions: New amoxicillin-pot clavulanate 875-125 mg tablet 1 tab PO BID 7 Days Qty: 14 0RF doxycycline monohydrate 100 mg capsule 100 mg PO BID 7 Days Qty: 14 0RF benzonatate 100 mg capsule 100 mg PO BID PRN (Reason: cough) Qty: 20 0RF No Action valacyclovir 500 mg tablet 500 mg PO DAILY clonazepam 0.5 mg tablet 0.5 mg PO TID Biktarvy 50-200-25 mg tablet 1 tab PO DAILY quetiapine [Seroquel] 200 mg tablet 200 mg PO DAILY propranolol 10 mg tablet 10 mg PO BID PRN (Reason: anxiety) omeprazole 40 mg capsule,delayed release(DR/EC) 40 mg PO DAILY Qty: 90 2RF baclofen 5 mg tablet 5 mg PO BEDTIME Qty: 20 0RF lidocaine 5 % adhesive patch,medicated 1 patch topical DAILY Qty: 15 1RF Rx Instructions: leave on most painful area for up to 12 hrs nicotine 14 mg/24 hr patch 24 hour 1 patch transdermal DAILY Qty: 28 0RF Print Language: Dutch
[2024-10-13] MEDS: predniSONE 20 MG TABLET 40 MG PO (12:15)
[2024-10-13 12:31] VITALS: BP 117/58; PULSE 76; RESP 20; TEMP 37.2; O2SAT 99
[2024-10-13 13:02] VITALS: BP 117/58; PULSE 76; RESP 20; TEMP 37.2; O2SAT 99
== END 2024-10-13 13:02 | disposition home or self-care (01) ==
PROVIDERS: Emergency Provider Emergency Medicine Emergency Medical Services
DX: J18.8 Other pneumonia, unspecified organism (principal); Z03.818 Encounter for observation for suspected exposure to other biological agents ruled out; R05.9 Cough, unspecified; B20 Human immunodeficiency virus [HIV] disease; F17.210 Nicotine dependence, cigarettes, uncomplicated; F12.90 Cannabis use, unspecified, uncomplicated
CPT/HCPCS: 0241U; 71046; 99282; 99283

== ENCOUNTER 2024-10-26 14:40 | Outpatient (AMB) | payer MEDICARE, MEDICAID, SELFPAY ==
--- NOTE | 2024-10-26 14:49 | MHC.PC.OV ---
Vital Signs 10/26/24 14:50 Height 5 ft 4 in Weight 179 lb 2 oz BMI 30.7 BP 120/68 Blood Pressure Location Lt brachial Position Sitting Pulse 78 Pulse Source Pulse Oximeter Pulse Oximetry (%) 98 Oxygen Delivery Method Room Air Intake Visit Reasons: Pe Intake Note: Patient is here today for a physical. Requesting for referral Infectious diseases. Pt decline flu shot today. Senior Laboratory Technician Required: No Rough Planer Tender: Not Required per policy Accompanied by: Self / Same As Patient Allergies citalopram [From Celexa] Allergy (Unknown, Verified 10/26/24 15:27) Unknown sulfamethoxazole [From Bactrim] Allergy (Unknown, Verified 10/26/24 15:27) Unknown sulindac Allergy (Unknown, Verified 10/26/24 15:27) Unknown trimethoprim [From Bactrim] Allergy (Unknown, Verified 10/26/24 15:27) Unknown Medication List - Last Reconciled 10/26/24 by Lillie Hannah PA-C baclofen 5 mg PO BEDTIME benzonatate 100 mg PO BID PRN acdaufnhe-ahsesxmt-szoynxv ala 50-200-25 mg (Biktarvy) 1 tab PO DAILY clonazepam 0.5 mg PO TID lidocaine 5% 1 patch topical DAILY nicotine 1 patch transdermal DAILY omeprazole 40 mg PO DAILY propranolol 10 mg PO BID PRN quetiapine (Seroquel) 200 mg PO DAILY valacyclovir 500 mg PO DAILY Tobacco use date assessed: 10/26/24 Dental Screening Dental Screen Date: 07/31/24 HPI Pe HPI Details 34-year-old female with past medical history of depression, anxiety, HIV, asthma last seen July 2024 coming in for annual exam.? In review of the notes patient was seen in [facility] 10/13/2024 for community-acquired pneumonia treated with antibiotics.? Patient was seen by General surgery 08/24/2024 for ventral hernia postop advised to follow up as needed. Patient states she needs a referral to Infectious Disease as she was previously being seen by [facility] but is transitioning all her care to [facility]. She does also mentioned she had a about 13 years ago and since then has been having episodes of stress incontinence when she sneezes or coughs that has been worsening over the last 3 years. She states she is still smoking cigarettes and has been used in the patches but has not cut back on the smoking. Lastly she tells us she is not up-to-date on her Pap smears and has a previous history of being diagnosed with HPV and abnormal Pap smears and underwent resection of some of the tissue and has not followed up since. [facility] Medical History Herpes simplex Anxiety Depression demise, greater than 22 weeks, antepartum, single gestation Smoker delivery due to maternal disorder Right ovarian cyst HIV (human immunodeficiency virus infection) Hernia of abdominal cavity Surgical History S/P repair of ventral hernia (07/11/24) Previous delivery, antepartum condition or complication S/P left oophorectomy S/p partial hysterectomy with remaining cervical stump Family History Other No known health problems Social History Household Members: Family Housing: House Are you a primary complex care nurse practitioner to a significant other at home: No Do you presently have visiting nurse or other home services: No Alcohol intake: unknown Patient Tobacco Use Status: Current everyday Tobacco user Tobacco use type: Cigarette Cigarette Packs Per Day: 0.5 Cigarettes Per Day: 10.0 e-Cigarette/Vaping Use: Never Used Second Hand Smoke Exposure: Yes Substance Use Type: Marijuana service: No Current occupational status: disabled Cognitive needs: No Hearing needs: No Vision needs: No Questionnaire PHQ-9 Over the last 2 weeks, how often have you been bothered by any of the following problems? 2. Feeling down, depressed, or hopeless: several days 6. Feeling bad about yourself - or that you are a failure or have let yourself or your family down: several days Source: Developed by Drs. Sarthak Villatoro, Elizabeth Jasso, Norman Hunt and colleagues, with an educational kimberly from [employer]. Thrive Questionnaire Date Thrive assessed: 07/31/24 I am a: Patient What is your living situation today?: I have a steady place to live Within the past 12 months, did the food you bought not last and you didn't have the money to get more?: Never true Within the past 12 months, did you worry whether your food would run out before you got money to buy more?: Never true Do you have trouble paying for medicines?: No Do you have trouble getting transportation to medical appointments?: Yes Do you have trouble paying your heating and electricity bill?: No Do you have trouble taking care of your child, family member or friend?: Yes Do you have trouble with day-to-day activities such as bathing, preparing meals, shopping, managing finances, etc.?: No Are you currently unemployed and looking for a job?: No Are you interested in more education?: No Currently or been in a relationship where the following occur: I choose not to answer THRIVE Score: 1 ESTHER-7 AMB Questionnaire ESTHER-7 Date ESTHER - 7 assessed: 07/31/24 (patient is on RX ) Source: Developed by Drs. Sarthak Villatoro, Elizabeth Jasso, Norman Hunt and colleagues, with an educational kimberly from [employer]. Review of Systems Const Denies body aches, Denies fatigue, Denies fever(s), Denies frequent falls, Denies headache(s) and Denies weakness Eyes Details: eye doctor regularly Reports no additional complaints and Denies change in vision ENT Denies dysphagia, Denies dizziness, Denies facial pain, Denies headache(s), Denies nasal congestion and Denies odynophagia Card Denies chest pain, Denies syncope, Denies irregular heart rhythm, Denies leg edema, Denies lightheadedness and Denies dyspnea Resp Denies cough and Denies dyspnea GI Denies constipation, Denies dysphagia, Denies dyspepsia, Denies diarrhea, Denies nausea, Denies odynophagia and Denies vomiting Denies urinary frequency, Denies dysuria, Denies urinary hesitancy and Denies urinary urgency Musc Denies back pain and Denies myalgias Skin/Breast Reports system reviewed and no additional complaints, except as documented Neuro Denies dizziness, Denies syncope, Denies frequent falls, Denies headache(s) and Denies weakness Psych Reports no additional complaints Endo Denies fatigue Physical exam (Primary Care) Vital Signs: Last Vital Signs Pulse 78 10/26/24 14:50 BP 120/68 10/26/24 14:50 Pulse Ox 98 10/26/24 14:50 Oxygen Delivery Method Room Air 10/26/24 14:50 BMI result Body Mass Index 30.7 Tobacco/Smoking Status: Tobacco use Status Tobacco use date assessed 10/26/24 10/26/24 15:05 Patient Tobacco Use Status Current everyday Tobacco 10/26/24 15:05 Tobacco use type Cigarette 10/26/24 15:05 e-Cigarette/Vaping Use Never Used 10/26/24 15:05 Are you ready to quit: Yes Tobacco cessation counseling provided: Yes Items discussed: Nicotine replacement Relapse Prevention: discussed the importance of a supportive environment, discussed extending NRT, weight gain after smoking is common and discussed dietary, exercise and/or lifestyle changes Number of minutes spent counselin CPT code: 31013 - 4-10 Minutes Thrive Assessment: Date of Thrive Assessment Date Thrive assessed 07/31/24 10/26/24 15:05 Currently or been in a relationship where the following occur: I choose not to answer Const General: cooperative, healthy appearing, comfortable and no acute distress Orientation/consciousness: patient oriented x3 HENMT Head: Yes normocephalic Ears: hearing grossly normal bilaterally, external ears normal, TM's normal bilaterally and EAC's normal General nose exam: Normal external nose present Face and sinus: Yes normal facial exam and Yes sinuses nontender Mouth: Normal oral and palatal mucosa present and tongue normal Throat: Yes posterior oropharynx normal Eyes General: appearance normal, both eyes and all related structures Conjunctivae: conjunctivae normal Pupils: Equal, round and reactive pupils present EOM: EOMs intact bilaterally and No Nystagmus present Neck Neck: Yes normal visual inspection, Yes full ROM and Yes no lymphadenopathy Chest Chest palpation & inspection: normal inspection of the chest Resp Effort & Inspection: normal respiratory effort Auscultation: clear to auscultation bilaterally, no crackles, no rales, no rhonchi, no wheezes and breath sounds present Cardio Rate: regular rate Rhythm: regular rhythm Peripheral pulses: radial pulses present and dorsalis pedis present GI Inspection: Yes normal to inspection and No Abdominal wall edema Palpation (GI): Soft to palpation, not firm and nontender Auscultation: normal bowel sounds Rectal Exam - Female: deferred General: Yes no CVA tenderness Back/Spine/Pelvis Back: no CVA tenderness Skin General skin exam: no rashes or lesions noted Neuro General: patient oriented x3 Cranial nerves: Yes Equal, round and reactive pupils present, Yes Midline tongue present, Yes Ability to bilaterally elevate shoulders present and No Nystagmus present Gait exam (Neuro): Normal gait present Extrem General: Yes normal to inspection, Yes full ROM, No no pedal edema and No edema Psych Speech and movement: Normal speech and movement present Affect: normal affect Insight: Good insight present (Psych) Judgement: Good judgement present (Psych) Coding Level of Care Code Est Pt Prev Care 18-39y(75454) Diagnoses Ventral hernia without obstruction or gangrene K43.9 Obstruction and gangrene presence: without obstruction or gangrene Asthma J45.909 HIV (human immunodeficiency virus infection) B20 Anxiety F41.9 Depression F32.A Smoker F17.200 Annual physical exam Z00.00 Stress incontinence N39.3 Low back pain M54.50 Additional Codes Vital Signs *Quality* - CPT code: 30615 - 4-10 Minutes ([id number]) Assessment & Plan Assessment & Plan (1) Ventral hernia: Code(s): K43.9 - Ventral hernia without obstruction or gangrene Category: Medical Qualifiers: Obstruction and gangrene presence: without obstruction or gangrene Qualified Code(s): K43.9 - Ventral hernia without obstruction or gangrene Plan: Surgically repaired by General surgery was seen postoperatively doing well advised to follow up as needed. (2) Asthma: Code(s): J45.909 - Unspecified asthma, uncomplicated Category: Medical Plan: Asthma currently controlled without the use of medications. Avoid triggers such as allergies. (3) HIV (human immunodeficiency virus infection): Comment: She is on Biktarvy. Last CD4 count undetectable 12/2022 and viral load 917. She takes Biktarvy daily Code(s): B20 - Human immunodeficiency virus [HIV] disease Category: Medical Plan: Currently on Biktarvy and following with Infectious Disease. New referral placed to [facility] Infectious Disease. (4) Anxiety: Comment: Continue medication Follow [facility] every 3 months Code(s): F41.9 - Anxiety disorder, unspecified Category: Medical Plan: Patient follows with [facility] currently on clonazepam and Seroquel. (5) Depression: Code(s): F32.A - Depression, unspecified Category: Medical Plan: Currently following with [facility] and on Seroquel. (6) Smoker: Code(s): F17.200 - Nicotine dependence, unspecified, uncomplicated Category: Social Hx Plan: Smoking cigarettes and the use of tobacco can be harmful. We discussed the importance of stopping and options to aid in smoking cessation. Given prescription for nicotine patches. (7) Annual physical exam: Code(s): Z00.00 - Encounter for general adult medical examination without abnormal findings Category: Medical Plan: Patient is up-to-date on all recommended vaccinations for her age. She is not up-to-date on her Pap smear which is the only screening that we need to do at this time. Referral placed to gynecology for routine Pap smears. Continue to encourage healthy diet and regular exercise. (8) Stress incontinence: Code(s): N39.3 - Stress incontinence (female) (male) Category: Medical Plan: Patient complaining of chronic stress incontinence over the last 13 years. Encouraged patient to undergo physical therapy however she would like to try pelvic floor exercises at home. Discussed with patient to avoid pelvic floor exercises that involve a foreign body. Referral placed to Urogynecology. (9) Low back pain: Code(s): M54.50 - Low back pain, unspecified Category: Medical Plan: Patient complaining of persistent low back pain and did not get the x-ray done. She states she never had the baclofen or lidocaine filled as the pharmacy told her they did not have these prescriptions. These prescriptions were recent to [facility] pharmacy today and strongly encouraged patient to have the lumbar spine x-ray done. Plan This note was constructed using voice recognition software. While every effort has been made to ensure accuracy and study assistant, still areas may have been included sometimes these areas may affect the content or meeting of the given symptoms. Total time spent caring for the patient today was 30 minutes. This includes time spent before the visit reviewing the chart, time spent during the visit, and time spent after the visit and documentation. Orders: Orders XR lumbar spine 2-3V Today M54.50 - Low back pain, unspecified Referrals Infectious Disease Referral B20 - Human immunodeficiency virus [HIV] disease Urogynecology Referral N39.3 - Stress incontinence (female) (male) F[employer] Referral Z12.4 - Encounter for screening for malignant neoplasm of cervix Medications: Refilled omeprazole 40 mg PO DAILY 90 caps 2RF baclofen 5 mg PO BEDTIME 20 tabs 0RF nicotine 1 patch transdermal DAILY 28 ea 0RF lidocaine 5% leave on most painful area for up to 12 hrs 1 patch topical DAILY 15 ea 1RF
[2024-10-26 14:50] VITALS: BP 120/68; PULSE 78; O2SAT 98; BMI 30.7
== END 2024-10-26 15:41 | disposition home or self-care (01) ==
DX: Z00.00 Encounter for general adult medical examination without abnormal findings (principal); B20 Human immunodeficiency virus [HIV] disease; K43.9 Ventral hernia without obstruction or gangrene; J45.909 Unspecified asthma, uncomplicated; F41.9 Anxiety disorder, unspecified; F32.A Depression, unspecified; F17.210 Nicotine dependence, cigarettes, uncomplicated; N39.3 Stress incontinence (female) (male); M54.50 Low back pain, unspecified

== ENCOUNTER → 2024-10-26 14:40 | Outpatient (BNVA) | payer MEDICARE, MEDICAID, SELFPAY | DX: Z00.00 Encounter for general adult medical examination without abnormal findings (principal); F32.A Depression, unspecified; F41.9 Anxiety disorder, unspecified; B20 Human immunodeficiency virus [HIV] disease; J45.909 Unspecified asthma, uncomplicated; K43.9 Ventral hernia without obstruction or gangrene; N39.3 Stress incontinence (female) (male); M54.50 Low back pain, unspecified; F17.210 Nicotine dependence, cigarettes, uncomplicated; Z71.6 Tobacco abuse counseling | CPT/HCPCS: 99395 ==

== ENCOUNTER 2024-12-05 14:05 | Outpatient (AMB) | payer MEDICARE, MEDICAID, SELFPAY ==
--- NOTE | 2024-12-05 14:32 | A.OFFVIS_ITS ---
Vital Signs 12/05/24 14:38 Height 5 ft 4 in Weight 180 lb BMI 30.9 Pulse 77 Pulse Source Pulse Oximeter Pulse Oximetry (%) 98 Oxygen Delivery Method Room Air Intake Visit Reasons: Transferring from [facility] [place] [facility] [place] request/HIV Allergies citalopram [From Celexa] Allergy (Unknown, Verified 12/05/24 14:38) Unknown sulfamethoxazole [From Bactrim] Allergy (Unknown, Verified 12/05/24 14:38) Unknown sulindac Allergy (Unknown, Verified 12/05/24 14:38) Unknown trimethoprim [From Bactrim] Allergy (Unknown, Verified 12/05/24 14:38) Unknown HPI HPI Transferring from [facility] to [facility] patient request/HIV: Details: She is doing well and taking Biktarvy. She has CD4 count 899 and viral load undetectable on 09/19/2024. She has no complaints and has stable housing. [facility] Medical History Herpes simplex Anxiety Depression demise, greater than 22 weeks, antepartum, single gestation Smoker delivery due to maternal disorder Right ovarian cyst HIV (human immunodeficiency virus infection) Hernia of abdominal cavity Surgical History S/P repair of ventral hernia (07/11/24) Previous delivery, antepartum condition or complication S/P left oophorectomy S/p partial hysterectomy with remaining cervical stump Family History Other No known health problems Social History Household Members: Family Housing: House Are you a primary career orientation teacher to a significant other at home: No Do you presently have visiting nurse or other home services: No Alcohol intake: unknown Patient Tobacco Use Status: Current everyday Tobacco user Tobacco use type: Cigarette Cigarette Packs Per Day: 0.5 Cigarettes Per Day: 10.0 e-Cigarette/Vaping Use: Never Used Second Hand Smoke Exposure: Yes Substance Use Type: Marijuana service: No Current occupational status: disabled Cognitive needs: No Hearing needs: No Vision needs: No Review of Systems Const All systems reviewed & are unremarkable except as noted in HPI and below Physical Exam Vital Signs: Last Vital Signs Pulse 77 12/05/24 14:38 Pulse Ox 98 12/05/24 14:38 Oxygen Delivery Method Room Air 12/05/24 14:38 BMI result Body Mass Index 30.9 Const General: cooperative HEENT Other: gingivitis Face and sinus: Yes normal facial exam Mouth: Normal oral and palatal mucosa present Teeth and gingiva: dentition normal Eyes General: appearance normal, both eyes and all related structures Pupils: Equal, round and reactive pupils present Resp Effort & Inspection: normal respiratory effort Cardio Rate: regular rate Rhythm: regular rhythm GI Palpation (GI): Soft to palpation and nontender General: Yes no CVA tenderness Back/Spine/Pelvis Back: no CVA tenderness Skin General skin exam: no rashes or lesions noted Neuro General: moves all extremities Cranial nerves: Yes Equal, round and reactive pupils present Extrem General: Yes normal to inspection Psych Appearance: grossly normal Assessment & Plan Assessment & Plan (1) HIV (human immunodeficiency virus infection): Comment: She is on Biktarvy. She has CD4 count 899 and viral load undetectable on 09/19 Continue Biktarvy. Check CD4 count and viral load March. See in May. Anal Pap. Code(s): B20 - Human immunodeficiency virus [HIV] disease Category: Medical Plan: n/a Orders: Orders HIV-1 RNA QN PCR Expanded 4 Months B20 - Human immunodeficiency virus [HIV] disease Lymphocyte Subset Panel 3 4 Months B20 - Human immunodeficiency virus [HIV] disease Medications: New glnvsqbzl-nzscslwb-iwiyvcr ala 50-200-25 mg (Biktarvy) 1 tab PO DAILY 30 days 30 tabs 5RF Coding Level of Care Code Est Pt Level 4 (94600) Diagnoses HIV (human immunodeficiency virus infection) B20
[2024-12-05 14:38] VITALS: PULSE 77; O2SAT 98; BMI 30.9
== END 2024-12-05 15:07 | disposition home or self-care (01) ==
PROVIDERS: Visit Provider Internal Medicine
DX: B20 Human immunodeficiency virus [HIV] disease (principal)
CPT/HCPCS: 99214

== ENCOUNTER → 2024-12-05 14:05 | Outpatient (BNVA) | payer MEDICARE, MEDICAID, SELFPAY | PROVIDERS: Visit Provider Internal Medicine | DX: B20 Human immunodeficiency virus [HIV] disease (principal) | CPT/HCPCS: 99212 ==

== ENCOUNTER 2025-03-31 17:38 | Emergency (ER) | payer MEDICARE, MEDICAID, SELFPAY ==
--- NOTE | 2025-03-31 17:42 | ED_ITS ---
HPI - Dental/Oral General Chief complaint: Dental/Oral Stated complaint: left wisdom tooth pain Time Seen by Provider: 03/31/25 17:50 Source: patient Mode of arrival: ambulatory Limitations: no limitations History of Present Illness ED Provider: Shobha Parham NP HPI Narrative: Patient is a 34-year-old female who presents emergency department for evaluation. She has been experiencing intermittent issues with left lower molar pain. She reports that tooth had fractured quite a long time ago has a cavity to this location in has had multiple prior infections. She was seen about a wee k and a half ago at [facility], was given a 7 day course of amoxicillin, and given referral for an oral specialist for extraction. This appointment is scheduled for 04/03/2025. Pain has persisted despite the use of Tylenol and ibuprofen, feels as though the pain is unbearable. Denies radiation of the pain. Denies inability to open or close her jaw. No associated neck pain or swelling. No fevers or chills. Denies ear pain, sore throat, foul taste in her mouth, pus-like drainage, bleeding from the gums. Related Data Home Medications ?Medication ?Instructions ?Recorded ?Confirmed bictegravir 50 mg-emtricitabine 1 tab PO DAILY 03/21/23 10/26/24 200 mg-tenofovir alafenam 25 mg tablet (Biktarvy) clonazepam 0.5 mg tablet 0.5 mg PO TID 03/21/23 10/26/24 quetiapine 200 mg tablet (Seroquel) 200 mg PO DAILY 03/21/23 10/26/24 valacyclovir 500 mg tablet 500 mg PO DAILY 07/11/24 10/26/24 Previous Rx's ?Medication ?Instructions ?Recorded benzonatate 100 mg capsule 100 mg PO BID PRN cough #20 caps 10/13/24 omeprazole 40 mg capsule,delayed 40 mg PO DAILY #90 caps 10/26/24 release baclofen 5 mg tablet 5 mg PO BEDTIME #20 ea 12/03/24 bictegravir 50 mg-emtricitabine 1 tab PO DAILY 30 days #30 tabs 12/05/24 200 mg-tenofovir alafenam 25 mg tablet (Biktarvy) oxycodone 5 mg tablet 5 mg PO Q6H PRN pain #7 tabs 03/31/25 Allergies Allergy/AdvReac Type Severity Reaction Status Date / Time citalopram [From Celexa] Allergy Unknown Unknown Verified 03/31/25 17:44 sulfamethoxazole Allergy Unknown Unknown Verified 03/31/25 17:44 [From Bactrim] sulindac Allergy Unknown Unknown Verified 03/31/25 17:44 trimethoprim [From Bactrim] Allergy Unknown Unknown Verified 03/31/25 17:44 Review of Systems Review of Systems: Yes all other systems are reviewed and are negative PMFSH Past Medical History Attestation statement: The following information was validated with the patient. Source: old records reviewed Medical History Herpes simplex Anxiety Depression demise, greater than 22 weeks, antepartum, single gestation Smoker delivery due to maternal disorder Right ovarian cyst HIV (human immunodeficiency virus infection) Hernia of abdominal cavity Surgical History S/P repair of ventral hernia (07/11/24) Previous delivery, antepartum condition or complication S/P left oophorectomy S/p partial hysterectomy with remaining cervical stump Family History Family History Other No known health problems Social History Social History Household Members: Family Housing: House Are you a primary child care specialist to a significant other at home: No Do you presently have visiting nurse or other home services: No Alcohol intake: unknown Patient Tobacco Use Status: Current everyday Tobacco user Tobacco use type: Cigarette Cigarette Packs Per Day: 0.5 Cigarettes Per Day: 10.0 e-Cigarette/Vaping Use: Never Used Second Hand Smoke Exposure: Yes Substance Use Type: Marijuana Advance Directives: No Advance Directives Information Provided: No service: No Current occupational status: disabled Cognitive needs: No Hearing needs: No Vision needs: No Physical Exam Vital Signs: Vital Signs: Last Vital Signs Temp 98.6 F 03/31/25 18:08 Pulse 91 03/31/25 18:08 Resp 18 03/31/25 18:08 BP 101/54 L 03/31/25 18:08 Pulse Ox 96 03/31/25 18:08 O2 Del Method Room Air 03/31/25 18:08 BMI result Body Mass Index 29.6 Appearance: Alert. Oriented X3. No acute distress. Eyes: PERRLA. EOMI. Conjunctiva and sclera normal. Eyelids normal. ENT: EAC normal. TM's Normal. Pharynx normal. Uvula midline. Moist mucous membranes.? ?No trismus noted.? No drooling noted.? No muffled voice noted. Dentition:? Patient with poor dentition throughout with multiple old fractured teeth with multiple dental caries.? tooth #17 of concern today fracture and dental moraima, Gingival within normal limits.? No fluctuance.? Not consistent with peritonsillar abscess. Not consistent with dental abscess.? No salivary d uct obstruction noted. Neck: Normal inspection. Neck supple. FROM. No adenopathy. No meningeal signs. No neck mass noted.? CVS: Normal heart rate and rhythm. Heart sound normal. No murmurs noted. Pulses normal throughout. Respiratory: No respiratory distress. Lung sounds clear to the apices bilaterally.. Chest nontender. ?No accessory muscle usage noted or decreased air movement noted. Skin: Skin warm and dry.? Normal skin color.? Normal skin turgor. No rashes/lesions/lacerations noted. Extremities: Extremities exhibit normal range of motion.? Extremities nontender. Neuro: Oriented X 3.? No motor deficit.? No sensory deficit.? Medical Decision Making Medical Decision Making MDM Narrative: Patient is a 34-year-old female who presents emergency department for evaluation of dental pain associated with tooth 17. As per HPI and physical exam portion of this note, there is associated dental fracture and dental moraima, no evidence of abscess on examination, no erythema/swelling at this time. She is without signs of systemic toxicity. no gingival inflammation or bleeding to suggest gingivitis, periodontitis. Does not appear consistent with periapical or maria teresa odontal abscess, no fluctuance or purulent drainage noted. No trismus, no associated sore throat, no dysphagia, no odynophagia, no hoarseness, no stridor, no dyspnea, low suspicion for paripharyngeal space infection. Uvula is midline, no edema to the soft palate, unlikely peritonsillar abscess. No induration below the angle of the mandible on the neck, nontoxic in appearance, unlikely parapharyngeal abscess. Posterior pharyngeal anatomy is without any evidence of distortion, unlikely retropharyngeal abscess. On examination no tenderness of the floor of the mouth, able to tolerate secretions, no drooling, no nuchal rigidity, no swelling to the neck, unlikely Dom's angina. Not consistent with alveolar osteitis. I have sent a short prescription for oxycodone to her pharmacy, precautions on usage, reviewed ADMINISTRATIVE JUDGE, advised not to take in conjunction with her Klonopin. Outpatient follow-up with dental provider is advised, worrisome signs and symptoms that would warrant re-evaluation in the emergency department discussed. Differential Diagnosis Differential Diagnoses: The differential diagnosis associated with the pres entation includes (See narrative above) External Record Review External record reviewed: Outpatient record and Other I attest that I have reviewed patients [place], and at the time prescribing the patient a controlled substance is appropriate based off of patients diagnosis and treatment plan. Tests considered The following testing was considered but not selected: See narrative above, deferred CT imaging, low suspicion for abscess/deep space infection. Prescription Management I considered prescription management with: Pain Medication and Antibiotic (See narrative above, low suspicion for acute infection at this time) Chronic Conditions Patient?s care impacted by: Other (see PMFSH section) Discharge Plan Discharge Clinical Impression: Dental caries Patient Disposition: Home, Self-Care Additional Instructions: As discussed, he will need to follow-up with the oral specialist a you are scheduled to see 04/03/2025, for extraction of the tooth. You have completed a 1 week course of antibiotics thus far. You can take ibuprofen 200 mg, 3 tablets (600mg) every 6-8 hours as needed for pain, in addition to Tylenol 500 mg, 2 tablets (1,000mg) every 4-6 hours as needed for pain, but not to exceed 3 doses daily (3,000mg).? You may also trial [id number] Orajel/tooth analgesic gels. For pain unrelieved by the above I have sent a short prescription for oxycodone to your pharmacy. This is a narcotic medication. It may be addicting. It can make you drowsy. You should not drive, drink alcohol, or work while taking this medication. Avoid taking this in conjunction with your Klonopin as this can result in overly sedating side effects Prescriptions: New oxycodone 5 mg tablet 5 mg PO Q6H PRN (Reason: pain) Qty: 7 0RF Rx Instructions: Partial Fill upon patient request. No Action baclofen 5 mg tablet 5 mg PO BEDTIME Qty: 20 0RF valacyclovir 500 mg tablet 500 mg PO DAILY benzonatate 100 mg capsule 100 mg PO BID PRN (Reason: cough) Qty: 20 0RF clonazepam 0.5 mg tablet 0.5 mg PO TID Biktarvy 50-200-25 mg tablet 1 tab PO DAILY quetiapine [Seroquel] 200 mg tablet 200 mg PO DAILY omeprazole 40 mg capsule,delayed release(DR/EC) 40 mg PO DAILY Qty: 90 2RF Biktarvy 50-200-25 mg tablet 1 tab PO DAILY 30 Days Qty: 30 5RF Referrals: Lillie Hannah PA-C [Primary Care Provider] - Interventions: ED Discharge Assessment Last Done: 03/31/25 18:08 Discharge Date/Time: 03/31/25 18:12 Print Language: Slovak
[2025-03-31 17:43] VITALS: BP 101/54; PULSE 91; RESP 18; TEMP 37; O2SAT 96; BMI 29.6
[2025-03-31 18:08] VITALS: BP 101/54; PULSE 91; RESP 18; TEMP 37; O2SAT 96
== END 2025-03-31 18:12 | disposition home or self-care (01) ==
PROVIDERS: Emergency Provider Emergency Medicine
DX: K02.9 Dental caries, unspecified (principal)
CPT/HCPCS: 99282; 99283

== ENCOUNTER → 2025-04-29 20:36 | Outpatient (BNV) | payer MEDICARE, MEDICAID, SELFPAY | PROVIDERS: Visit Provider Radiology Diagnostic Radiology | DX: M25.572 Pain in left ankle and joints of left foot (principal) | CPT/HCPCS: 73610 ==

== ENCOUNTER 2025-04-29 20:55 | Emergency (ER) | payer MEDICARE, MEDICAID, SELFPAY ==
--- NOTE | ~2025-04-29 | XR_ITS ---
CLINICAL HISTORY: pain swelling s p trauma Left ankle three views Comparison: None provided Findings: No acute fracture or dislocation identified. No acute focal bony abnormality. No radiopaque foreign body noted. Impression: No acute bony abnormality This document has been electronically signed by: Pal Henriquez MD on 04/29/2025 21:52:38
[2025-04-29 21:22] VITALS: BP 102/62; PULSE 78; RESP 18; TEMP 36.6; O2SAT 96; BMI 26.8
--- NOTE | 2025-04-29 23:35 | PC.NURSE ---
pt to after school caregiver inquiring about length of time until seen by a provider. RN was unable to provide additional information, pt states that although the pain remains she is unable to wait any longer. RN encouraged the pt to follow up and/or return with worsening symptoms and educated on proper RICE technique to assist with swelling/pain. pt was well appearing and without distress noted. ambualted out of the ed without issue and/or assistance required.
== END 2025-04-29 23:42 | disposition left against medical advice (07) ==
PROVIDERS: Emergency Provider Emergency Medicine
DX: R60.0 Localized edema (principal); M25.572 Pain in left ankle and joints of left foot
CPT/HCPCS: 73610; 99281

== ENCOUNTER 2025-05-06 10:01 | Emergency (ER) | payer MEDICARE, MEDICAID, SELFPAY ==
[2025-05-06 10:59] VITALS: BP 125/66; PULSE 78; RESP 16; TEMP 36.8; O2SAT 97; BMI 27.3
--- NOTE | 2025-05-06 11:03 | ED.GENADULT ---
HPI - General Adult General Chief complaint: General Medical Stated complaint: r arm red swelling Time Seen by Provider: 05/06/25 11:15 Source: patient, RN notes reviewed and old records reviewed Mode of arrival: ambulatory Limitations: no limitations History of Present Illness ED Provider: Santa LO narrative: Patient is a 34-year-old female presenting to the emergency department with complaint of extremely pruritic erythematous area to her right forearm and elbow. States that she was weed whacking the other day and thinks she was bit by a bug. States the area of redness has been increasing and there is warmth. She outlines the area and states the erythema is spreading. Denies fevers, chills, body aches. Denies any discharge or drainage from the area. MD complaint: bug bites Onset (ago): day(s) Related Data Home Medications ?Medication ?Instructions ?Recorded ?Confirmed bictegravir 50 mg-emtricitabine 1 tab PO DAILY 03/21/23 10/26/24 200 mg-tenofovir alafenam 25 mg tablet (Biktarvy) clonazepam 0.5 mg tablet 0.5 mg PO TID 03/21/23 10/26/24 quetiapine 200 mg tablet (Seroquel) 200 mg PO DAILY 03/21/23 10/26/24 valacyclovir 500 mg tablet 500 mg PO DAILY 07/11/24 10/26/24 Previous Rx's ?Medication ?Instructions ?Recorded benzonatate 100 mg capsule 100 mg PO BID PRN cough #20 caps 10/13/24 omeprazole 40 mg capsule,delayed 40 mg PO DAILY #90 caps 10/26/24 release baclofen 5 mg tablet 5 mg PO BEDTIME #20 ea 12/03/24 bictegravir 50 mg-emtricitabine 1 tab PO DAILY 30 days #30 tabs 12/05/24 200 mg-tenofovir alafenam 25 mg tablet (Biktarvy) oxycodone 5 mg tablet 5 mg PO Q6H PRN pain #7 tabs 03/31/25 cephalexin 500 mg capsule 500 mg PO QID #28 caps 05/06/25 cetirizine 10 mg tablet 10 mg PO DAILY PRN itchin #30 tabs 05/06/25 famotidine 20 mg tablet 20 mg PO DAILY #10 tabs 05/06/25 Allergies Allergy/AdvReac Type Severity Reaction Status Date / Time citalopram (From Celexa) Allergy Unknown Unknown Verified 05/06/25 11:03 sulfamethoxazole (From Allergy Unknown Unknown Verified 05/06/25 11:03 Bactrim) sulindac Allergy Unknown Unknown Verified 05/06/25 11:03 trimethoprim (From Bactrim) Allergy Unknown Unknown Verified 05/06/25 11:03 Review of Systems Review of Systems: as per hpi Yes all other systems are reviewed and are negative Constitutional: Constitutional: Reports as per HPI PMFSH Past Medical History Medical History Herpes simplex Anxiety Depression demise, greater than 22 weeks, antepartum, single gestation Smoker delivery due to maternal disorder Right ovarian cyst HIV (human immunodeficiency virus infection) Hernia of abdominal cavity Surgical History S/P repair of ventral hernia (07/11/24) Previous delivery, antepartum condition or complication S/P left oophorectomy S/p partial hysterectomy with remaining cervical stump Family History Family History Other No known health problems Social History Social History Household Members: Family Housing: House Are you a primary physician primary care sports medicine to a significant other at home: No Do you presently have visiting nurse or other home services: No Alcohol intake: unknown Patient Tobacco Use Status: Current everyday Tobacco user Tobacco use type: Cigarette Cigarette Packs Per Day: 0.5 Cigarettes Per Day: 10.0 e-Cigarette/Vaping Use: Never Used Second Hand Smoke Exposure: Yes Substance Use Type: Marijuana Advance Directives: No Advance Directives Information Provided: Yes Do you have a plan to hurt others: No Plan service: No Current occupational status: disabled Cognitive needs: No Hearing needs: No Vision needs: No Physical Exam ED Vital Signs: Vital Signs - 24 hr 05/06/25 10:59 Temperature 98.3 F Pulse Rate 78 Respiratory Rate 16 Blood Pressure 125/66 Pulse Oximetry 97 Oxygen Delivery Method Room Air BMI result Body Mass Index 27.3 Vital signs have been reviewed and appear to be correct. Blood pressure normal. Heart rate normal. Respiratory rate normal. Temperature normal. Oxygen saturation normal. Const General: cooperative, healthy appearing and no acute distress Orientation/consciousness: oriented to person, oriented to place, oriented to time and patient oriented x3 Limitations: no limitations HENMT Head: Yes normocephalic and Yes atraumatic Ears: external ears normal General nose exam: Normal external nose present Face and sinus: Yes face symmetric Mouth: oropharynx normal and moist mucous membranes Throat: Yes uvula midline Eyes Pupils: Equal, round and reactive pupils present Neck Neck: Yes normal visual inspection and Yes supple Resp Effort & Inspection: normal respiratory effort and able to speak in complete sentences Auscultation: clear to auscultation bilaterally Cardio Rate: regular rate Rhythm: regular rhythm Heart sounds: S1 normal heart sound present and S2 normal heart sound present GI Palpation (GI): Soft to palpation and nontender Auscultation: normoactive bowel sounds General: Yes no CVA tenderness Back/Spine/Pelvis Back: no CVA tenderness Skin General skin exam: elasticity normal and turgor normal Neuro General: oriented to person, oriented to place, oriented to time, patient oriented x3, moves all extremities, no focal motor deficits and CN's II-XI intact bilaterally Cranial nerves: Yes Equal, round and reactive pupils present Cognition (Neuro): normal cognition Extrem General: Yes full ROM, Yes no pedal edema and Yes no calf tenderness Right upper extremity: elbow/forearm (6cm x 4 cm area of erythema and warmth to medial aspect of proximal forearm) Details: normal ROM and other (no lymphangitis, no discharge or drainage from area of erythema) Psych Mental Status: mental status grossly normal Affect: normal affect Thought process: Normal thought process present Course Course Course Narrative: RME performed by Lizzie Vergara PA-C. Patient is a 34 year old assigned female at presenting to the emergency department with right arm redness / swelling. Patient states that she was bit by a bug a few days ago and the redness / itchiness persists. Detailed physical exam and review of systems are deferred to the toppiece cutter. Patient placed back in the waiting room pending room availability. Medical Decision Making Medical Decision Making MDM Narrative: Patient is a 34-year-old female presenting to the emergency department with complaint of extremely pruritic erythematous area to her right forearm and elbow. On exam patient is awake, A+Ox3, VS WNL, afebrile, normal neurological exam without focal deficits, physical exam findings as above. Given reported symptoms and physical exam findings, initial differential includes but is not limited to bug bite, cellulitis, contact dermatitis from poison [place]. Given the erythema has increased according to patient will treat with course of Keflex. Will also send prescriptions for cetirizine and famotidine at patient request as she states she is unable to afford these out of pocket at this time. Strict return precautions discussed with patient and erythema outlined prior to patient's arrival to the ED. patient verbalized understanding of and agreement with plan. Differential Diagnosis Differential Diagnoses: The differential diagnosis associated with the presentation includes As per [facility] Admission/Observation Consideration of admission/observation: Escalation of care including admission/observation considered Patient would have been admitted to the hospital had their work up had any findings where hospital admission was appropriate and their clinical presentation warranted hospital admission. External Record Review External record reviewed: Inpatient record, Office record and Outpatient record Prescription Management I considered prescription management with: Antibiotic and Other Discharge Plan Discharge Clinical Impression: Cellulitis of arm, right Patient Disposition: Home, Self-Care Instructions: Cellulitis (ED) Additional Instructions: You were evaluated in the emergency department today for redness and swelling to her arm. You are being treated for cellulitis which is a skin infection with a course of antibiotics. Please complete the full course as prescribed. You are also being prescribed cetirizine which is an antihistamine to decrease itching. You are being prescribed famotidine as well which is a different type of antihistamine. Took these medications as prescribed. Assess the area daily and return to the emergency department if you notice redness outside the outlined area, thick yellow drainage, redness streaking up your arm, have fevers or any other new or concerning symptoms. Prescriptions: New cetirizine 10 mg tablet 10 mg PO DAILY PRN (Reason: itchin) Qty: 30 0RF Rx Instructions: Start by taking 1 tab daily as needed for itching. Can increase dose to b.i.d. if needed. Can increase to 20 mg in a.m. and 10 mg p.m. if symptoms persist. Can increase to max dose of 20 mg b.i.d. as needed to control itching without exceeding total dose of 40 mg daily. famotidine 20 mg tablet 20 mg PO DAILY Qty: 10 0RF cephalexin 500 mg capsule 500 mg PO QID Qty: 28 0RF No Action baclofen 5 mg tablet 5 mg PO BEDTIME Qty: 20 0RF valacyclovir 500 mg tablet 500 mg PO DAILY benzonatate 100 mg capsule 100 mg PO BID PRN (Reason: cough) Qty: 20 0RF oxycodone 5 mg tablet 5 mg PO Q6H PRN (Reason: pain) Qty: 7 0RF Rx Instructions: Partial Fill upon patient request. clonazepam 0.5 mg tablet 0.5 mg PO TID Biktarvy 50-200-25 mg tablet 1 tab PO DAILY quetiapine [Seroquel] 200 mg tablet 200 mg PO DAILY omeprazole 40 mg capsule,delayed release(DR/EC) 40 mg PO DAILY Qty: 90 2RF Biktarvy 50-200-25 mg tablet 1 tab PO DAILY 30 Days Qty: 30 5RF Print Language: Japanese
[2025-05-06 12:39] VITALS: BP 125/66; PULSE 78; RESP 16; TEMP 36.8; O2SAT 97
== END 2025-05-06 12:40 | disposition home or self-care (01) ==
PROVIDERS: Emergency Provider Emergency Medicine
DX: L03.113 Cellulitis of right upper limb (principal); L29.9 Pruritus, unspecified
CPT/HCPCS: 99282; 99283

== ENCOUNTER 2025-05-29 09:54 | Outpatient (REF) | payer MEDICARE, MEDICAID, SELFPAY ==
[2025-05-31 15:38] LABS: HIV RNA PCR Qn Copies NOT DETECTED copies/mL (NOT DETECTED); HIV RNA PCR Qn Log Copies NOT DETECTED (NOT DETECTED)
[2025-06-02 15:13] LABS: Absolute CD3 Count 1907 cells/uL (840-3060); Absolute CD8 Count 1115 cells/uL (180-1170); Percent CD3 Cells 80 % (57-85); Percent CD8 Cells 47 % (12-42)
== END 2025-05-29 09:55 | disposition home or self-care (01) ==
LOC: HO.LAB 09:54
PROVIDERS: Visit Provider Internal Medicine
DX: B20 Human immunodeficiency virus [HIV] disease (principal)
CPT/HCPCS: 36415; 86359; 86360; 87536

== ENCOUNTER 2025-06-03 13:44 | Outpatient (AMB) | payer MEDICARE, MEDICAID, SELFPAY ==
--- NOTE | 2025-06-03 13:45 | MHC.OFFVIS ---
Vital Signs 06/03/25 13:50 Height 5 ft 4 in Weight 169 lb BMI 29.0 Pulse 91 Pulse Source Pulse Oximeter Pulse Oximetry (%) 98 Oxygen Delivery Method Room Air Intake Visit Reasons: 6 month hiv labs Allergies citalopram (From Celexa) Allergy (Unknown, Verified 06/03/25 14:20) Unknown sulfamethoxazole (From Bactrim) Allergy (Unknown, Verified 06/03/25 14:20) Unknown sulindac Allergy (Unknown, Verified 06/03/25 14:20) Unknown trimethoprim (From Bactrim) Allergy (Unknown, Verified 06/03/25 14:20) Unknown HPI HPI 6 month hiv labs: Details: She has CD4 count 838 and viral load undetectable on 05/29. She feels well and is trying to quit smoking with patch. [facility] Medical History Herpes simplex Anxiety Depression demise, greater than 22 weeks, antepartum, single gestation Smoker delivery due to maternal disorder Right ovarian cyst HIV (human immunodeficiency virus infection) Hernia of abdominal cavity Surgical History S/P repair of ventral hernia (07/11/24) Previous delivery, antepartum condition or complication S/P left oophorectomy S/p partial hysterectomy with remaining cervical stump Family History Other No known health problems Social History Household Members: Family Housing: House Are you a primary career portals teacher to a significant other at home: No Do you presently have visiting nurse or other home services: No Alcohol intake: unknown Patient Tobacco Use Status: Current everyday Tobacco user Tobacco use type: Cigarette Cigarette Packs Per Day: 0.5 Cigarettes Per Day: 10.0 e-Cigarette/Vaping Use: Never Used Second Hand Smoke Exposure: Yes Substance Use Type: Marijuana service: No Current occupational status: disabled Cognitive needs: No Hearing needs: No Vision needs: No Review of Systems Const All systems reviewed & are unremarkable except as noted in HPI and below Physical Exam Vital Signs: Last Vital Signs Pulse 91 06/03/25 13:50 Pulse Ox 98 06/03/25 13:50 Oxygen Delivery Method Room Air 06/03/25 13:50 BMI result Body Mass Index 29.0 Const General: cooperative Orientation/consciousness: patient oriented x3 HEENT Head: Yes normal to inspection Mouth: Normal oral and palatal mucosa present Eyes General: appearance normal, both eyes and all related structures Pupils: Equal, round and reactive pupils present Resp Effort & Inspection: normal respiratory effort Cardio Rate: regular rate Rhythm: regular rhythm GI Palpation (GI): Soft to palpation and nontender General: Yes no CVA tenderness Back/Spine/Pelvis Back: no CVA tenderness Skin General skin exam: no rashes or lesions noted Neuro General: patient oriented x3 Cranial nerves: Yes CN's II-XII intact bilaterally and Yes Equal, round and reactive pupils present Extrem General: Yes normal to inspection Psych Appearance: grossly normal Assessment & Plan Assessment & Plan (1) HIV (human immunodeficiency virus infection): Comment: She is doing well and has good immune control and viral load undetectable. She is trying to quit smoking. Would continue using nicotine patch. Continue Biktarvy. See in six months,meds written for Follow Career Counselor. Code(s): B20 - Human immunodeficiency virus [HIV] disease Category: Medical Plan: na Orders: Orders HIV-1 RNA QN PCR Expanded 6 Months B20 - Human immunodeficiency virus [HIV] disease Lymphocyte Subset Panel 3 6 Months B20 - Human immunodeficiency virus [HIV] disease Medications: Refilled fojfhrmvs-raijrrgd-hidhuhy ala 50-200-25 mg (Biktarvy) 1 tab PO DAILY 30 tabs 5RF 30 days Coding Level of Care Code Est Pt Level 4 (01074) Diagnoses HIV (human immunodeficiency virus infection) B20
[2025-06-03 13:50] VITALS: PULSE 91; O2SAT 98; BMI 29.0
== END 2025-06-03 14:36 | disposition home or self-care (01) ==
LOC: HO.HID 13:44
PROVIDERS: Visit Provider Internal Medicine
DX: B20 Human immunodeficiency virus [HIV] disease (principal)
CPT/HCPCS: 99214

== ENCOUNTER → 2025-06-03 13:44 | Outpatient (BNVA) | payer MEDICARE, MEDICAID, SELFPAY | PROVIDERS: Visit Provider Internal Medicine | DX: B20 Human immunodeficiency virus [HIV] disease (principal); F17.210 Nicotine dependence, cigarettes, uncomplicated; Z79.899 Other long term (current) drug therapy | CPT/HCPCS: 99212 ==

== ENCOUNTER 2025-06-13 12:14 | Emergency (ER) | payer MEDICARE, MEDICAID, SELFPAY ==
[2025-06-13 12:21] VITALS: BP 127/62; PULSE 86; RESP 16; TEMP 36.3; O2SAT 98; BMI 28.0
--- NOTE | 2025-06-13 12:22 | ED.GENADULT ---
HPI - General Adult General Chief complaint: Dizziness Stated complaint: Abnormal labs, dizziness Related Data Home Medications ?Medication ?Instructions ?Recorded ?Confirmed bictegravir 50 mg-emtricitabine 1 tab PO DAILY 03/21/23 10/26/24 200 mg-tenofovir alafenam 25 mg tablet (Biktarvy) clonazepam 0.5 mg tablet 0.5 mg PO TID 03/21/23 10/26/24 quetiapine 200 mg tablet (Seroquel) 200 mg PO DAILY 03/21/23 10/26/24 gabapentin 100 mg capsule 100 mg PO DAILY 06/03/25 Previous Rx's ?Medication ?Instructions ?Recorded omeprazole 40 mg capsule,delayed 40 mg PO DAILY #90 caps 05/07/25 release valacyclovir 500 mg tablet 500 mg PO DAILY 30 days #30 tabs 05/13/25 bictegravir 50 mg-emtricitabine 1 tab PO DAILY 30 days #30 tabs 06/03/25 200 mg-tenofovir alafenam 25 mg tablet (Biktarvy) Allergies Allergy/AdvReac Type Severity Reaction Status Date / Time citalopram (From Celexa) Allergy Unknown Unknown Verified 06/13/25 12:21 sulfamethoxazole (From Allergy Unknown Unknown Verified 06/13/25 12:21 Bactrim) sulindac Allergy Unknown Unknown Verified 06/13/25 12:21 trimethoprim (From Bactrim) Allergy Unknown Unknown Verified 06/13/25 12:21 [facility] Past Medical History Medical History Herpes simplex Anxiety Depression demise, greater than 22 weeks, antepartum, single gestation Smoker delivery due to maternal disorder Right ovarian cyst HIV (human immunodeficiency virus infection) Hernia of abdominal cavity Surgical History S/P repair of ventral hernia (07/11/24) Previous delivery, antepartum condition or complication S/P left oophorectomy S/p partial hysterectomy with remaining cervical stump Family History Family History Other No known health problems Social History Social History Household Members: Family Housing: House Are you a primary healthcare specialist to a significant other at home: No Do you presently have visiting nurse or other home services: No Alcohol intake: unknown Patient Tobacco Use Status: Current everyday Tobacco user Tobacco use type: Cigarette Cigarette Packs Per Day: 0.5 Cigarettes Per Day: 10.0 e-Cigarette/Vaping Use: Never Used Second Hand Smoke Exposure: Yes Substance Use Type: Marijuana service: No Current occupational status: disabled Cognitive needs: No Hearing needs: No Vision needs: No Physical Exam ED Vital Signs: BMI result Body Mass Index 28.0 Course Course Course Narrative: This is a rapid medical exam performed by Kyra Pratt NP: Additional HPI, ROS, PE not included below will be deferred to primary provider. Patient is a 34-year-old female presenting with complaint of intermittent dizziness, dyspnea, chest tightness for the past week. States recently had labs done and cholesterol was high, Vit D was low. Plan: EKG, labs, CXR Patient left the emergency department before myself or any of the other clinicians could review or explain physical exam findings, test results, need or lack there of for additional testing, treatment options, or a treatment plan. Medical Decision Making Lab Data 06/13/25 12:48 06/13/25 12:48 Labs: Lab Results 06/13/25 Range/Units 12:48 WBC 5.8 (4.8-10.8) X10*3/uL RBC 4.28 (4.20-5.50) X10*6/uL Hgb 14.5 (12.0-16.0) g/dl Hct 40.8 (37.0-47.0) % MCV 95.3 (80.0-98.0) fL MCH 33.9 H (27.0-33.0) pg MCHC 35.5 H (31.0-35.0) g/dl RDW 12.4 (11.0-16.0) % Plt Count 224 (160-400) X10*3/uL MPV 9.4 (9.4-12.3) fL Immature Gran % (Auto) 0.3 (0.0-0.4) % Neut % (Auto) 50.4 (45-73) % Lymph % (Auto) 40.5 H (20-40) % [place] % (Auto) 5.9 (2-11) % Eos % (Auto) 2.2 (0-4) % Baso % (Auto) 0.7 (0-2) % Lymph # (Auto) 2.3 (1.2-4.9) X10*3/uL [place] # (Auto) 0.3 (0.1-1.2) X10*3/uL Eos # (Auto) 0.1 (0.0-0.4) X10*3/uL Baso # (Auto) 0.0 (0.0-0.2) X10*3/uL Abs Immat Gran (auto) 0.02 (0.00-0.03) X10*3/uL Absolute Neuts (auto) 2.9 (2.0-8.3) x10*3/uL Absolute Nucleated RBC 0.000 (0.0-0.012) X10*3/uL Nucleated RBC % (auto) 0.0 (0.0-0.2) /100WBC Sodium 141 (135-145) mmol/L Potassium 3.9 (3.3-5.1) mmol/L Chloride 106 (96-108) mmol/L Carbon Dioxide 28 (22-29) mmol/L Anion Gap 11 L (12-20) BUN 14 (9-16) mg/dL Creatinine 0.94 (0.5-1.4) mg/dL Estim Creat Clear Calc 81.5 Estimated GFR > 60 Random Glucose 108 (60-115) mg/dL Calcium 9.3 (8.4-10.2) mg/dL Total Bilirubin 0.6 (0.0-1.0) mg/dL AST 18 (5-31) U/L ALT 14 (0-31) U/L Alkaline Phosphatase 73 (39-117) U/L Total Protein 7.2 (6.5-8.0) g/dL Albumin 4.7 (3.5-5.0) g/dL Beta HCG, Quant 3 mIU/mL Influenza Type A (PCR) NEGATIVE (Negative) Influenza Type B (PCR) NEGATIVE (Negative) RSV RNA Qual (PCR) NEGATIVE (Negative) SARS-CoV-2 RNA (RT-PCR) NEGATIVE (Negative) Discharge Plan Discharge Clinical Impression: Diagnosis unknown Patient Disposition: Left W/O Completing Treatment Prescriptions: No Action omeprazole 40 mg capsule,delayed release(DR/EC) 40 mg PO DAILY Qty: 90 2RF valacyclovir 500 mg tablet 500 mg PO DAILY 30 Days Qty: 30 5RF clonazepam 0.5 mg tablet 0.5 mg PO TID Biktarvy 50-200-25 mg tablet 1 tab PO DAILY quetiapine [Seroquel] 200 mg tablet 200 mg PO DAILY gabapentin 100 mg capsule 100 mg PO DAILY Biktarvy 50-200-25 mg tablet 1 tab PO DAILY 30 Days Qty: 30 5RF Discharge Date/Time: 06/13/25 16:27
--- NOTE | 2025-06-13 12:23 | ECG_ITS ---
Test Reason : CP Blood Pressure : */* mmHG Vent. Rate : 77 BPM Atrial Rate : 77 BPM P-R Int : 126 ms QRS Dur : 84 ms QT Int : 390 ms P-R-T Axes : 56 46 50 degrees QTcB Int : 441 ms Normal sinus rhythm Low voltage QRS Cannot rule out Anterior infarct , age undetermined Abnormal ECG When compared with ECG of 04-Feb-2024 23:30, No significant change was found Referred By: Pratibha Pratt Electronically Signed By: MEE RODRIGUEZ
[2025-06-13 12:53] LABS: MANUAL DIFF FLAG NO
[2025-06-13 12:55] LABS: Hematocrit 40.8 % (37.0-47.0); Hemoglobin 14.5 g/dl (12.0-16.0); Imm Gran Abs Auto 0.02 X10*3/uL (0.00-0.03); Imm Gran Pct Auto 0.3 % (0.0-0.4); Lymphocytes Absolute Auto 2.3 X10*3/uL (1.2-4.9); Mean Corpuscular HGB Conc 35.5 g/dl (31.0-35.0); Mean Corpuscular Hemoglobin 33.9 pg (27.0-33.0); Mean Corpuscular Volume 95.3 fL (80.0-98.0); NRBC Abs Auto 0.000 X10*3/uL (0.0-0.012); NRBC Pct Auto 0.0 /100WBC (0.0-0.2); Platelet Count 224 X10*3/uL (160-400); Red Blood Count 4.28 X10*6/uL (4.20-5.50); White Blood Count 5.8 X10*3/uL (4.8-10.8)
[2025-06-13 13:08] LABS: Alanine Aminotransferase 14 U/L (0-31); Albumin Level 4.7 g/dL (3.5-5.0); Alkaline Phosphatase 73 U/L (39-117); Anion Gap 11 (12-20); Aspartate Amino Transferase 18 U/L (5-31); Blood Urea Nitrogen 14 mg/dL (9-16); Calcium 9.3 mg/dL (8.4-10.2); Carbon Dioxide 28 mmol/L (22-29); Chloride 106 mmol/L (96-108); Creatinine Clr Calc Pharmacy 81.5; Estimated Glomerular Filt Rate > 60; Potassium 3.9 mmol/L (3.3-5.1); Sodium 141 mmol/L (135-145); Total Protein 7.2 g/dL (6.5-8.0)
[2025-06-13 13:34] LABS: Resp Syncy Virus RNA Qual PCR NEGATIVE (Negative); SARS COV2 PCR INHOUSE NEGATIVE (Negative)
== END 2025-06-13 16:27 | disposition left against medical advice (07) ==
LOC: HO.ED 16:27
PROVIDERS: Registered Nurse Emergency; Emergency Provider Emergency Medicine
DX: R42 Dizziness and giddiness (principal); R06.00 Dyspnea, unspecified; Z72.0 Tobacco use; Z53.21 Procedure and treatment not carried out due to patient leaving prior to being seen by health care provider
CPT/HCPCS: 36415; 80053; 84702; 85025; 87637; 93005; 99283

== ENCOUNTER → 2025-06-13 12:23 | Outpatient (BNV) | payer MEDICARE, MEDICAID, SELFPAY | PROVIDERS: Emergency Provider Emergency Medicine; Visit Provider Internal Medicine | DX: R94.31 Abnormal electrocardiogram [ECG] [EKG] (principal); R07.9 Chest pain, unspecified | CPT/HCPCS: 93010 ==

== ENCOUNTER 2025-07-24 11:04 | Emergency (ER) | payer MEDICARE, MEDICAID, SELFPAY ==
[2025-07-24 11:41] VITALS: BP 103/56; PULSE 76; RESP 16; TEMP 36.8; O2SAT 98; BMI 24.1
--- NOTE | 2025-07-24 11:47 | ED.GENADULT ---
HPI - General Adult General Chief complaint: Dental/Oral Stated complaint: wisdom teeth pain Time Seen by Provider: 07/24/25 11:46 Source: patient Mode of arrival: ambulatory Limitations: no limitations History of Present Illness ED Provider: Bobby Lin HPI narrative: 34 yold female presents to the ED for right upper molar wisdom pain. patient states no trauma, facial swelling, fever, chills, neck swelling, drooling, or change in voice. Related Data Home Medications ?Medication ?Instructions ?Recorded ?Confirmed bictegravir 50 mg-emtricitabine 1 tab PO DAILY 03/21/23 10/26/24 200 mg-tenofovir alafenam 25 mg tablet (Biktarvy) clonazepam 0.5 mg tablet 0.5 mg PO TID 03/21/23 10/26/24 quetiapine 200 mg tablet (Seroquel) 200 mg PO DAILY 03/21/23 10/26/24 gabapentin 100 mg capsule 100 mg PO DAILY 06/03/25 Previous Rx's ?Medication ?Instructions ?Recorded omeprazole 40 mg capsule,delayed 40 mg PO DAILY #90 caps 05/07/25 release valacyclovir 500 mg tablet 500 mg PO DAILY 30 days #30 tabs 05/13/25 bictegravir 50 mg-emtricitabine 1 tab PO DAILY 30 days #30 tabs 06/03/25 200 mg-tenofovir alafenam 25 mg tablet (Biktarvy) amoxicillin 875 mg-potassium 1 tab PO Q12H 10 days #20 tabs 07/24/25 clavulanate 125 mg tablet ketorolac 10 mg tablet 10 mg PO Q6H PRN pain #20 tabs 07/24/25 oxycodone 5 mg capsule 5 mg PO Q8H PRN pain #9 caps 07/24/25 Allergies Allergy/AdvReac Type Severity Reaction Status Date / Time citalopram (From Celexa) Allergy Unknown Unknown Verified 07/24/25 11:42 sulfamethoxazole (From Allergy Unknown Unknown Verified 07/24/25 11:42 Bactrim) sulindac Allergy Unknown Unknown Verified 07/24/25 11:42 trimethoprim (From Bactrim) Allergy Unknown Unknown Verified 07/24/25 11:42 Review of Systems Review of Systems: upper right molar pain Yes all other systems are reviewed and are negative PMFSH Past Medical History Medical History Herpes simplex Anxiety Depression demise, greater than 22 weeks, antepartum, single gestation Smoker delivery due to maternal disorder Right ovarian cyst HIV (human immunodeficiency virus infection) Hernia of abdominal cavity Surgical History S/P repair of ventral hernia (07/11/24) Previous delivery, antepartum condition or complication S/P left oophorectomy S/p partial hysterectomy with remaining cervical stump Family History Family History Other No known health problems Social History Social History (Reviewed 06/05/25 @ 00: by Sravanthi Clinton MD) Household Members: Family Housing: House Are you a primary career services director to a significant other at home: No Do you presently have visiting nurse or other home services: No Alcohol intake: unknown Patient Tobacco Use Status: Current everyday Tobacco user Tobacco use type: Cigarette Cigarette Packs Per Day: 0.5 Cigarettes Per Day: 10.0 e-Cigarette/Vaping Use: Never Used Second Hand Smoke Exposure: Yes Substance Use Type: Marijuana Advance Directives: No Advance Directives Information Provided: Yes service: No Current occupational status: disabled Cognitive needs: No Hearing needs: No Vision needs: No Physical Exam ED Vital Signs: Vital Signs - 24 hr 07/24/25 11:41 Temperature 98.2 F Pulse Rate 76 Respiratory Rate 16 Blood Pressure 103/56 L Pulse Oximetry 98 Oxygen Delivery Method Room Air BMI result Body Mass Index 24.1 Const General: cooperative, healthy appearing, comfortable, no acute distress, well developed, alert, awake and Physically active Orientation/consciousness: patient oriented x3 HENMT Head: Yes normal to inspection, Yes No palpable skull fracture present, Yes normocephalic and No atraumatic Ears: hearing grossly normal bilaterally, external ears normal, TM's normal bilaterally, TM normal on the right, TM normal on the left, EAC's normal, mastoids normal, no periauricular adenopathy and Abnormal EAC present Teeth image:  1. positive for tenderness on palpation. tooth is cracked and with some collection. no trismus, drooling, gum swelling, or deformity. Throat: Yes posterior oropharynx normal, Yes tonsils normal and Yes uvula midline Eyes General: appearance normal, both eyes and all related structures Neck Neck: Yes normal visual inspection, Yes full ROM, Yes no lymphadenopathy, Yes no meningeal signs, Yes trachea midline, Yes supple, No anterior neck swelling and No tender Chest Chest palpation & inspection: normal inspection of the chest and normal palpation of entire chest wall Resp Effort & Inspection: normal respiratory effort and able to speak in complete sentences Auscultation: clear to auscultation bilaterally Cardio Jugular venous distension: no JVD Heart sounds: S1 normal heart sound present and S2 normal heart sound present GI Inspection: Yes normal to inspection and No abdominal wall ecchymosis Palpation (GI): Soft to palpation, not firm, nontender, no guarding and not rigid General: Yes no CVA tenderness Back/Spine/Pelvis Back: no CVA tenderness and No back tenderness Skin General skin exam: no rashes or lesions noted, elasticity normal and turgor normal Neuro General: patient oriented x3, gait normal, tone normal, moves all extremities, Normal light touch and pain sensation, no meningeal signs, no focal motor deficits, CN's II-XI intact bilaterally and normal sensation to monofilament Extrem General: Yes normal to inspection, Yes full ROM, Yes capillary refill normal, Yes normal exam except as noted, Yes no joint enlargement and Yes no clubbing, cyanosis or edema Psych Appearance: grossly normal, well kempt and not disheveled Medications Administered Discontinued Medications Generic Name Dose Route Start Last Admin Trade Name Freq PRN Reason Stop Dose Admin Ketorolac Tromethamine 30 mg 07/24/25 11:46 07/24/25 11:51 Ketorolac Tromethamine 30 Mg/Ml Vial IM 07/24/25 11:47 30 mg ONCE ONE Administration Medical Decision Making Medical Decision Making [facility] Narrative: 34 yold female presents to the right upper molar pain. Patient states history of cracked tooth. Patient states wisdom tooth needs to be removed. patient denies any facial swelling, drooling, neck swelling, recent dental work, chest pain or shortness of breath. Patient explained worrisome signs and informed to return to the ED immediately. Not suspecting peritonsillar abscess, retropharyngeal abscess, trisums, epiglottitis, lduwig angina, or any other life threatening etiology. Differential Diagnosis Differential Diagnoses: The differential diagnosis associated with the presentation includes (Dental pain, wisdom tooth, dental abscess,) Admission/Observation Consideration of admission/observation: Escalation of care including admission/observation considered Independent Historian Clinical information obtained from an independent historian. History obtained from or confirmed by: Other (Patient) Prescription Management I considered prescription management with: Pain Medication Discharge Plan Discharge Clinical Impression: Pain, dental Patient Disposition: Home, Self-Care Instructions: Toothache (ED) Additional Instructions: Recommend keeping your appointment with your dentist on Tuesday. Called your dental clinic for an earlier appointment. Return to the ED immediately for any drooling, change in voice, facial swelling, neck swelling, chest pain, shortness of breath, or any other concerning symptoms. Do not take any other NSAIDs while taking Toradol Prescriptions: New amoxicillin-pot clavulanate 875-125 mg tablet 1 tab PO Q12H 10 Days Qty: 20 0RF ketorolac 10 mg tablet 10 mg PO Q6H PRN (Reason: pain) Qty: 20 0RF Rx Instructions: received 30mg IM in the ED oxycodone 5 mg capsule 5 mg PO Q8H PRN (Reason: pain) Qty: 9 0RF Rx Instructions: Partial Fill upon patient request. No Action omeprazole 40 mg capsule,delayed release(DR/EC) 40 mg PO DAILY Qty: 90 2RF valacyclovir 500 mg tablet 500 mg PO DAILY 30 Days Qty: 30 5RF clonazepam 0.5 mg tablet 0.5 mg PO TID Biktarvy 50-200-25 mg tablet 1 tab PO DAILY quetiapine [Seroquel] 200 mg tablet 200 mg PO DAILY gabapentin 100 mg capsule 100 mg PO DAILY Biktarvy 50-200-25 mg tablet 1 tab PO DAILY 30 Days Qty: 30 5RF Referrals: Lillie Hannah PA-C [Primary Care Provider, Internal Medicine] - 2 days Referral Note: Dental pain Clinical Impression: Pain, dental Discharge Date/Time: 07/24/25 12:02 Print Language: [place]
== END 2025-07-24 12:02 | disposition home or self-care (01) ==
PROVIDERS: Emergency Provider Emergency Medicine
DX: K08.89 Other specified disorders of teeth and supporting structures (principal)
CPT/HCPCS: 96372; 99282; 99284; J1885

== ENCOUNTER 2025-07-26 16:37 | Emergency (ER) | payer MEDICARE, MEDICAID, SELFPAY ==
[2025-07-26 17:01] VITALS: BP 118/62; BP 124/74; PULSE 94; PULSE 96; RESP 16; TEMP 36.8; O2SAT 96; O2SAT 97; BMI 28.8
--- NOTE | 2025-07-26 18:35 | ED.NAVMDI ---
HPI - Nausea/Vomiting/Diarrhea General Chief complaint: Nausea/Vomiting/Diarrhea Stated complaint: N/V Time Seen by Provider: 07/26/25 16:41 Source: patient Mode of arrival: EMS Limitations: no limitations History of Present Illness ED Provider: Dr. Jann Perkins HPI Narrative: 34-year-old female with a history of asthma, HIV, depression, anxiety, herpes simplex who presents emergency department for evaluation of nausea, vomiting, poor oral intake x2 days. The patient was seen in the emergency department on 07/24/2025 for right upper jaw dental pain. Patient was started on Augmentin and oxycodone at that time. She states that her dental pain has improved but since starting these medications she has not felt well. She states she has felt hot and cold in his had sweats. She did not check her temperature. She denied diarrhea, frequency, urgency, dysuria, myalgias or arthralgias. Related Data Home Medications ?Medication ?Instructions ?Recorded ?Confirmed bictegravir 50 mg-emtricitabine 1 tab PO DAILY 03/21/23 10/26/24 200 mg-tenofovir alafenam 25 mg tablet (Biktarvy) clonazepam 0.5 mg tablet 0.5 mg PO TID 03/21/23 10/26/24 quetiapine 200 mg tablet (Seroquel) 200 mg PO DAILY 03/21/23 10/26/24 gabapentin 100 mg capsule 100 mg PO DAILY 06/03/25 Previous Rx's ?Medication ?Instructions ?Recorded omeprazole 40 mg capsule,delayed 40 mg PO DAILY #90 caps 05/07/25 release valacyclovir 500 mg tablet 500 mg PO DAILY 30 days #30 tabs 05/13/25 bictegravir 50 mg-emtricitabine 1 tab PO DAILY 30 days #30 tabs 06/03/25 200 mg-tenofovir alafenam 25 mg tablet (Biktarvy) amoxicillin 875 mg-potassium 1 tab PO Q12H 10 days #20 tabs 07/24/25 clavulanate 125 mg tablet ketorolac 10 mg tablet 10 mg PO Q6H PRN pain #20 tabs 07/24/25 oxycodone 5 mg capsule 5 mg PO Q8H PRN pain #9 caps 07/24/25 clindamycin HCl 300 mg capsule 600 mg (2 x 300 mg) PO TID 5 days 07/26/25 (Cleocin HCl) #30 caps ibuprofen 400 mg tablet 400 mg PO TID PRN fever or pain 07/26/25 #30 tabs metoclopramide HCl 10 mg tablet 10 mg PO Q6H PRN nausea and 07/26/25 (Reglan) vomiting #14 tabs Allergies Allergy/AdvReac Type Severity Reaction Status Date / Time citalopram (From Celexa) Allergy Unknown Unknown Verified 07/26/25 17:03 sulfamethoxazole (From Allergy Unknown Unknown Verified 07/26/25 17:03 Bactrim) sulindac Allergy Unknown Unknown Verified 07/26/25 17:03 trimethoprim (From Bactrim) Allergy Unknown Unknown Verified 07/26/25 17:03 Review of Systems Review of Systems: Yes all other systems are reviewed and are negative [facility] Past Medical History Medical History Herpes simplex Anxiety Depression demise, greater than 22 weeks, antepartum, single gestation Smoker delivery due to maternal disorder Right ovarian cyst HIV (human immunodeficiency virus infection) Hernia of abdominal cavity Surgical History S/P repair of ventral hernia (07/11/24) Previous delivery, antepartum condition or complication S/P left oophorectomy S/p partial hysterectomy with remaining cervical stump Family History Family History Other No known health problems Social History Social History Household Members: Family Housing: House Are you a primary specialist wound care to a significant other at home: No Do you presently have visiting nurse or other home services: No Alcohol intake: unknown Patient Tobacco Use Status: Current everyday Tobacco user Tobacco use type: Cigarette Cigarette Packs Per Day: 0.5 Cigarettes Per Day: 10.0 e-Cigarette/Vaping Use: Never Used Second Hand Smoke Exposure: Yes Substance Use Type: Marijuana Advance Directives: No Advance Directives Information Provided: Yes Do you have a plan to hurt others: No Plan service: No Current occupational status: disabled Cognitive needs: No Hearing needs: No Vision needs: No Physical Exam Vital Signs: Vital Signs: Last Vital Signs Temp 97.5 F 07/26/25 21:12 Pulse 72 07/26/25 21:12 Resp 16 07/26/25 21:12 BP 98/53 L 07/26/25 21:12 Pulse Ox 96 07/26/25 21:12 O2 Del Method Room Air 07/26/25 21:12 BMI result Body Mass Index 28.8 Vital signs were normal Exam: General: Awake, alert in no distress Head: Normocephalic, atraumatic EENT: PERRL, sclera and conjunctiva are normal, mouth with no erythema or exudates, patient does have significant dental caries to tooth number1 with decay below the gumline, area is not erythematous, no obvious abscess Neck: Supple, no adenopathy Lung: breath sounds symmetric, no wheezing, no rales and no rhonchi Chest: symmetric movement, nontender Heart: regular rate and rhythm, normal S1, S2 no murmurs or rubs Abdomen: soft, non-tender, nondistended, normal bowel sounds Back: no vertebral tenderness, no CVAT Extremities: no deformities, moves all extremities symmetrically, no edema Neuro: Awake, alert, oriented, normal speech, cranial nerves 2-12 intact, moves all extremities symmetrically Psych: Pleasant, cooperative Medications Administered Discontinued Medications Generic Name Dose Route Start Last Admin Trade Name Ivory PRN Reason Stop Dose Admin Diphenhydramine HCl 50 mg 07/26/25 18:44 07/26/25 19:13 Diphenhydramine Hcl 50 Mg/Ml Vial IVPUSH 07/26/25 18:45 50 mg ONCE STA Administration Sodium Chloride 1,000 mls @ 999 mls/hr 07/26/25 18:44 07/26/25 20:29 Ns IV 07/26/25 19:44 Infused .Q1H1M STA Infusion Ketorolac Tromethamine 15 mg 07/26/25 18:46 07/26/25 19:13 Ketorolac Tromethamine 15 Mg/Ml Vial IVPUSH 07/26/25 18:47 15 mg ONCE STA Administration Metoclopramide HCl 10 mg 07/26/25 18:44 07/26/25 19:13 Metoclopramide Hcl 10 Mg/2 Ml Vial IVPUSH 07/26/25 18:45 10 mg ONCE STA Administration Ondansetron HCl 4 mg 07/26/25 18:16 07/26/25 18:30 Ondansetron Odt 4 Mg Tab.Brady MISTRY 07/26/25 18:17 4 mg ONCE ONE Administration Medical Decision Making Medical Decision Making [facility] Narrative: 34-year-old female with a history of asthma, HIV, depression, anxiety, herpes simplex who presents emergency department for evaluation of nausea, vomiting, poor oral intake x2 days. The patient was seen in the emergency department on 07/24/2025 for right upper jaw dental pain. Patient was started on Augmentin and oxycodone at that time. She states that her dental pain has improved but since starting these medications she has not felt well. She states she has felt hot and cold in his had sweats. She did not check her temperature. She denied diarrhea, frequency, urgency, dysuria, myalgias or arthralgias. Vital signs were normal. Physical examination was unremarkable. Differential diagnosis: ?Includes but is not limited to viral syndrome, COVID 19, bacteremia, dental infection, anemia, electrolyte abnormalities, volume depletion, dehydration Course: My independent interpretation the patient's laboratory evaluation is as follows: CBC was normal. CMP was normal. Beta hCG was below detectable limits. Lipase was normal. COVID-19 was negative Patient was treated with normal saline IV x1 L, Toradol 15 mg IV, metoclopramide 10 mg IV, Benadryl 50 mg IV and ondansetron 4 mg ODT. Patient is feeling significantly better. Given her negative workup I suspect that her symptoms are most likely caused by adverse drug reaction to Augmentin (amoxicillin/clavulanate ). Patient was advised to stop this medication is she started on clindamycin 600 mg 3 times a day for 5 days. she was also given a prescription for metoclopramide 10 mg orally every 6 hours as needed for nausea vomiting and ibuprofen 400 mg every 6 hours as needed for pain. She was given printed and verbal instructions discharged home. Differential Diagnosis Differential Diagnoses: The differential diagnosis associated with the presentation includes ( see above) Admission/Observation Consideration of admission/observation: Escalation of care including admission/observation considered ( yes) Lab Data [facility] Lab Attestation statement: I reviewed the patient's lab results. 07/26/25 19:07 07/26/25 19:07 Labs: Lab Results 07/26/25 Range/Units 19:07 WBC 10.6 (4.8-10.8) X10*3/uL RBC 4.44 (4.20-5.50) X10*6/uL Hgb 15.1 (12.0-16.0) g/dl Hct 41.9 (37.0-47.0) % MCV 94.4 (80.0-98.0) fL MCH 34.0 H (27.0-33.0) pg MCHC 36.0 H (31.0-35.0) g/dl RDW 12.5 (11.0-16.0) % Plt Count 251 (160-400) X10*3/uL MPV 9.5 (9.4-12.3) fL Immature Gran % (Auto) 0.4 (0.0-0.4) % Neut % (Auto) 76.6 H (45-73) % Lymph % (Auto) 17.4 L (20-40) % [place] % (Auto) 5.1 (2-11) % Eos % (Auto) 0.1 (0-4) % Baso % (Auto) 0.4 (0-2) % Lymph # (Auto) 1.9 (1.2-4.9) X10*3/uL [place] # (Auto) 0.5 (0.1-1.2) X10*3/uL Eos # (Auto) 0.0 (0.0-0.4) X10*3/uL Baso # (Auto) 0.0 (0.0-0.2) X10*3/uL Abs Immat Gran (auto) 0.04 H (0.00-0.03) X10*3/uL Absolute Neuts (auto) 8.1 (2.0-8.3) x10*3/uL Absolute Nucleated RBC 0.000 (0.0-0.012) X10*3/uL Nucleated RBC % (auto) 0.0 (0.0-0.2) /100WBC Sodium 141 (135-145) mmol/L Potassium 3.9 (3.3-5.1) mmol/L Chloride 107 (96-108) mmol/L Carbon Dioxide 25 (22-29) mmol/L Anion Gap 13 (12-20) BUN 8 L (9-16) mg/dL Creatinine 0.86 (0.5-1.4) mg/dL Estim Creat Clear Calc 90.4 Estimated GFR > 60 Random Glucose 110 (60-115) mg/dL Calcium 9.4 (8.4-10.2) mg/dL Magnesium 2.2 (1.6-2.6) mg/dL Total Bilirubin 0.7 (0.0-1.0) mg/dL AST 21 (5-31) U/L ALT 14 (0-31) U/L Alkaline Phosphatase 84 (39-117) U/L Total Protein 7.5 (6.5-8.0) g/dL Albumin 4.8 (3.5-5.0) g/dL Lipase 16 (8-78) U/L Beta HCG, Quant < 2 mIU/mL COVID-19 ([facility]) Negative (Negative) COVID-19 Clin Com See Note Prescription Management I considered prescription management with: Pain Medication ( ibuprofen) and Antibiotic ( clindamycin) Chronic Conditions Patient?s care impacted by: Other ( depression, anxiety, HIV) Discharge Plan Discharge Clinical Impression: Nausea & vomiting, Dental infection, Acute dehydration, Adverse drug reaction Patient Disposition: Home, Self-Care Additional Instructions: Your blood work was unremarkable. Your blood test was negative. Your COVID 19 test was negative as well. It is possible that you may have a viral infection or your symptoms may have been caused by the Augmentin (amoxicillin/clavulanate) that was prescribed for your dental infection. I want you to stop this medication. Take clindamycin 300 mg pills, 2 pills 3 times a day for 5 days to treat your dental infection. Take ibuprofen 400 mg pills,1 pills every 6 hours as needed for pain. For pain not relieved by ibuprofen or Tylenol take oxycodone 5 mg pills, 1 pill every 6 hours as needed for pain. Do not drive or work while taking this medication since they can cause sleepiness. Oxycodone is a narcotic medication that can be addicting. If you are concerned about addiction you can ask the pharmacist for less pills or do not get this prescription filled. Take Reglan (metoclopramide) 10 mg pills, 1 pill every 6 hours as needed for nausea and vomiting. Follow-up with your doctor in 2 days. Please return to the emergency department if your symptoms get worse or if you develop any symptoms that are concerning to you. Prescriptions: New clindamycin HCl [Cleocin HCl] 300 mg capsule 600 mg PO TID 5 Days Qty: 30 0RF ibuprofen 400 mg tablet 400 mg PO TID PRN (Reason: fever or pain) Qty: 30 0RF metoclopramide HCl [Reglan] 10 mg tablet 10 mg PO Q6H PRN (Reason: nausea and vomiting) Qty: 14 0RF No Action omeprazole 40 mg capsule,delayed release(DR/EC) 40 mg PO DAILY Qty: 90 2RF valacyclovir 500 mg tablet 500 mg PO DAILY 30 Days Qty: 30 5RF amoxicillin-pot clavulanate 875-125 mg tablet 1 tab PO Q12H 10 Days Qty: 20 0RF ketorolac 10 mg tablet 10 mg PO Q6H PRN (Reason: pain) Qty: 20 0RF Rx Instructions: received 30mg IM in the ED oxycodone 5 mg capsule 5 mg PO Q8H PRN (Reason: pain) Qty: 9 0RF Rx Instructions: Partial Fill upon patient request. clonazepam 0.5 mg tablet 0.5 mg PO TID Biktarvy 50-200-25 mg tablet 1 tab PO DAILY quetiapine [Seroquel] 200 mg tablet 200 mg PO DAILY gabapentin 100 mg capsule 100 mg PO DAILY Biktarvy 50-200-25 mg tablet 1 tab PO DAILY 30 Days Qty: 30 5RF Interventions: ED Discharge Assessment Last Done: 07/26/25 21:12 Discharge Date/Time: 07/26/25 21:13 Print Language: Estonian
[2025-07-26 19:10] LABS: MANUAL DIFF FLAG NO
[2025-07-26 19:13] LABS: Hematocrit 41.9 % (37.0-47.0); Hemoglobin 15.1 g/dl (12.0-16.0); Imm Gran Abs Auto 0.04 X10*3/uL (0.00-0.03); Imm Gran Pct Auto 0.4 % (0.0-0.4); Lymphocytes Absolute Auto 1.9 X10*3/uL (1.2-4.9); Mean Corpuscular HGB Conc 36.0 g/dl (31.0-35.0); Mean Corpuscular Hemoglobin 34.0 pg (27.0-33.0); Mean Corpuscular Volume 94.4 fL (80.0-98.0); NRBC Abs Auto 0.000 X10*3/uL (0.0-0.012); NRBC Pct Auto 0.0 /100WBC (0.0-0.2); Platelet Count 251 X10*3/uL (160-400); Red Blood Count 4.44 X10*6/uL (4.20-5.50); White Blood Count 10.6 X10*3/uL (4.8-10.8)
[2025-07-26 19:26] LABS: COVID-19 Test Negative (Negative); IDNOW Serial# 08D9AD1C
[2025-07-26 19:29] LABS: Alanine Aminotransferase 14 U/L (0-31); Albumin Level 4.8 g/dL (3.5-5.0); Alkaline Phosphatase 84 U/L (39-117); Anion Gap 13 (12-20); Aspartate Amino Transferase 21 U/L (5-31); Blood Urea Nitrogen 8 mg/dL (9-16); Calcium 9.4 mg/dL (8.4-10.2); Carbon Dioxide 25 mmol/L (22-29); Chloride 107 mmol/L (96-108); Creatinine Clr Calc Pharmacy 90.4; Estimated Glomerular Filt Rate > 60; Lipase 16 U/L (8-78); Magnesium 2.2 mg/dL (1.6-2.6); Potassium 3.9 mmol/L (3.3-5.1); Sodium 141 mmol/L (135-145); Total Protein 7.5 g/dL (6.5-8.0)
[2025-07-26 20:20] VITALS: BP 105/44; PULSE 65; RESP 16; TEMP 36.9; O2SAT 99
[2025-07-26 21:12] VITALS: BP 98/53; PULSE 72; RESP 16; TEMP 36.4; O2SAT 96
== END 2025-07-26 21:13 | disposition home or self-care (01) ==
PROVIDERS: Physician Assistant; Emergency Provider Emergency Medicine Emergency Medical Services
DX: K04.7 Periapical abscess without sinus (principal); R11.2 Nausea with vomiting, unspecified; R19.7 Diarrhea, unspecified; E86.0 Dehydration; R10.2 Pelvic and perineal pain; Z79.899 Other long term (current) drug therapy; Z11.52 Encounter for screening for COVID-19
CPT/HCPCS: 36415; 80053; 83690; 83735; 84702; 85025; 87635; 96361; 96374; 96375; 99284; J1200; J1885; J2765

== ENCOUNTER 2025-08-12 13:43 | Outpatient (AMB) | payer MEDICARE, MEDICAID, SELFPAY ==
--- NOTE | 2025-08-12 13:48 | MHC.PC.OV ---
Vital Signs 08/12/25 13:50 Height 5 ft 4 in Weight 167 lb 8 oz BMI 28.7 BP 90/60 Blood Pressure Location Lt brachial Position Sitting Pulse 76 Pulse Source Pulse Oximeter Temp 97.3 F Temp Source Temporal Artery Scan Pulse Oximetry (%) 97 Oxygen Delivery Method Room Air Intake Visit Reasons: Swollen hand and feet Intake Note: Patient is here to follow up on Swelling of hands and feet. Clerical Office Worker Required: No Batch Heat Treat Operator: Not Required per policy Accompanied by: Self / Same As Patient Allergies amoxicillin Allergy (Intermediate, Verified 08/12/25 13:53) Nausea and Vomiting oxycodone Allergy (Intermediate, Verified 08/12/25 13:53) Nausea and Vomiting citalopram (From Celexa) Allergy (Unknown, Verified 08/12/25 13:53) Unknown sulfamethoxazole (From Bactrim) Allergy (Unknown, Verified 08/12/25 13:53) Unknown sulindac Allergy (Unknown, Verified 08/12/25 13:53) Unknown trimethoprim (From Bactrim) Allergy (Unknown, Verified 08/12/25 13:53) Unknown Medication List - Last Reconciled 08/12/25 by Lillie Hannah PA-C [id number]-[id number]-muhshpz ala 50-200-25 mg (Biktarvy) 1 tab PO DAILY 30 days clonazepam 0.5 mg PO TID gabapentin 100 mg PO DAILY ketorolac 10 mg PO Q6H PRN metoclopramide HCl (Reglan) 10 mg PO Q6H PRN omeprazole 40 mg PO DAILY quetiapine (Seroquel) 200 mg PO DAILY valacyclovir 500 mg PO DAILY 30 days Tobacco use date assessed: 08/12/25 Dental Screening Dental Screen Date: 08/12/25 Did you have a dental visit in the last 12 months?: Yes Did you have a dental problem in the last 6 months where you did not have access to dental care?: No Was dental information given to patient?: Patient has dentist HPI Swollen hand and feet HPI Details 34 year old female with past medical history of depression, anxiety, HIV, asthma last seen 09/2024 coming in for acute problem. Presenting with dental infection due to broken wisdom teeth and concerns regarding asthma management. The patient reports all wisdom teeth are broken and is awaiting extraction. She was prescribed clindamycin and ketorolac in the ER, which she finds effective for pain management. However, she has been taking clindamycin incorrectly due to a labeling error, leading to prolonged use. The patient has a history of asthma and reports using albuterol inhaler at least once a day, mainly at night. She experiences increased symptoms when outside and walking. She has been prescribed Pulmicort but finds it difficult to use and as a result has not been using this and asthma has been worsening. The patient has a history of insomnia and takes Seroquel for management. She reports difficulty sleeping without air conditioning, which exacerbates her symptoms. The patient experiences swelling in her hands and feet when exposed to heat, which she attributes to heat edema. She reports significant discomfort and pain associated with the swelling. [facility] Medical History Herpes simplex Anxiety Depression demise, greater than 22 weeks, antepartum, single gestation Smoker delivery due to maternal disorder Right ovarian cyst HIV (human immunodeficiency virus infection) Hernia of abdominal cavity Surgical History S/P repair of ventral hernia (07/11/24) Previous delivery, antepartum condition or complication S/P left oophorectomy S/p partial hysterectomy with remaining cervical stump Family History Other No known health problems Social History Household Members: Family Housing: House Are you a primary acute care nursing assistant to a significant other at home: No Do you presently have visiting nurse or other home services: No Alcohol intake: unknown Patient Tobacco Use Status: Current everyday Tobacco user Tobacco use type: Cigarette Cigarette Packs Per Day: 0.5 Cigarettes Per Day: 10.0 e-Cigarette/Vaping Use: Never Used Second Hand Smoke Exposure: Yes Substance Use Type: Marijuana service: No Current occupational status: disabled Cognitive needs: No Hearing needs: No Vision needs: Yes (Glasses) Questionnaire PHQ-9 Over the last 2 weeks, how often have you been bothered by any of the following problems? 1. Little interest or pleasure in doing things: several days 2. Feeling down, depressed, or hopeless: several days 3. Trouble falling or staying asleep, or sleeping too much: nearly every day 4. Feeling tired or having little energy: several days 5. Poor appetite or overeating: several days 6. Feeling bad about yourself - or that you are a failure or have let yourself or your family down: several days 7. Trouble concentrating on things, such as reading the newspaper or watching television: several days 8. Moving or speaking so slowly that other people could have noticed. Or the opposite - being so fidgety or restless that you have been moving around a lot more than usual: not at all 9. Thoughts that you would be better off or of hurting yourself in some way: not at all Total score: 9 Depression Screening Interpretation: Positive Depression Screening Done: Yes Source: Developed by Drs. Sarthak Villatoro, Elizabeth Jasso, Norman Hunt and colleagues, with an educational kimberly from [employer]. Thrive Questionnaire Date Thrive assessed: 08/12/25 I am a: Patient What is your living situation today?: I have a steady place to live Within the past 12 months, did the food you bought not last and you didn't have the money to get more?: Never true Within the past 12 months, did you worry whether your food would run out before you got money to buy more?: Never true Do you have trouble paying for medicines?: I choose not to answer this question Do you have trouble getting transportation to medical appointments?: Yes Do you have trouble paying your heating and electricity bill?: I choose not to answer this question Do you have trouble taking care of your child, family member or friend?: No Do you have trouble with day-to-day activities such as bathing, preparing meals, shopping, managing finances, etc.?: No Are you currently unemployed and looking for a job?: No Are you interested in more education?: No Please select the resources that you would like help with: None Currently or been in a relationship where the following occur: I choose not to answer THRIVE Score: 1 AUDIT C Alcohol Use Questionnaire (AUDIT-C) 1. How often do you have a drink containing alcohol?: Never Total Score: 0 ESTHER-7 AMB Questionnaire ESTHER-7 Date ESTHER - 7 assessed: 08/12/25 Feeling nervous, anxious, or on edge: 3 = Nearly every day Not being able to stop or control worryin = Several days Worrying too much about different things: 1 = Several days Trouble relaxin = Several days Being so restless that it is hard to sit still: 1 = Several days Becoming easily annoyed or irritable: 1 = Several days Feeling afraid as if something awful might happen: 0 = Not at all Total ESTHER-7 score (0-4 normal; 5-9 mild; 10-14 moderate; 15-21 severe): 8 Source: Developed by Drs. Sarthak Villatoro, Elizabeth Jasso, Norman Hunt and colleagues, with an educational kimberly from [employer]. Review of Systems Const Denies body aches, Denies chills, Denies fever(s), Denies headache(s) and Denies poor appetite Eyes Reports no additional complaints ENT Denies dizziness and Denies headache(s) Card Denies chest pain, Denies edema, Denies irregular heart rhythm, Denies lightheadedness and Denies dyspnea Resp Denies dyspnea GI Denies abdominal pain, Denies diarrhea, Denies nausea and Denies vomiting Reports no additional complaints Musc Reports no additional complaints and Denies abnormal gait Skin/Breast Reports system reviewed and no additional complaints, except as documented Neuro Denies abnormal gait, Denies dizziness and Denies headache(s) Psych Reports no additional complaints Physical exam (Primary Care) Vital Signs: Last Vital Signs Temp 97.3 F 08/12/25 13:50 Pulse 76 08/12/25 13:50 BP 90/60 08/12/25 13:50 Pulse Ox 97 08/12/25 13:50 Oxygen Delivery Method Room Air 08/12/25 13:50 BMI result Body Mass Index 28.7 Tobacco/Smoking Status: Tobacco use Status Tobacco use date assessed 08/12/25 08/12/25 13:53 Patient Tobacco Use Status Current everyday Tobacco 08/12/25 13:53 Tobacco use type Cigarette 08/12/25 13:53 e-Cigarette/Vaping Use Never Used 08/12/25 13:53 Are you ready to quit: Yes Tobacco cessation counseling provided: Yes Items discussed: Nicotine replacement Relapse Prevention: discussed extending NRT and discussed dietary, exercise and/or lifestyle changes CPT code: Less than 3 minutes PHQ-9: PHQ-9 Score PHQ-9: Total score 9 08/12/25 17:04 Depression Screening Interpretation: Positive Thrive Assessment: Date of Thrive Assessment Date Thrive assessed 08/12/25 08/12/25 13:53 Currently or been in a relationship where the following occur: I choose not to answer Const General: cooperative, healthy appearing, comfortable and no acute distress Orientation/consciousness: patient oriented x3 HENMT Other: no facial swelling or TTP Head: Yes normocephalic Ears: hearing grossly normal bilaterally General nose exam: Normal external nose present Eyes General: appearance normal, both eyes and all related structures Conjunctivae: conjunctivae normal Neck Neck: Yes full ROM and Yes no lymphadenopathy Resp Effort & Inspection: normal respiratory effort Auscultation: clear to auscultation bilaterally, no crackles, no rales, no rhonchi and no wheezes Cardio Rate: regular rate Rhythm: regular rhythm Skin General skin exam: no rashes or lesions noted Neuro General: patient oriented x3 Gait exam (Neuro): Normal gait present Extrem General: Yes normal to inspection, Yes full ROM and No edema Psych Affect: normal affect Attitude: cooperative Insight: Good insight present (Psych) Judgement: Good judgement present (Psych) Coding Level of Care Code Est Pt Level 4 (16568) Diagnoses Hypertriglyceridemia E78.1 Asthma J45.909 Bilateral hip pain M25.551; M25.552 Tobacco use Z72.0 Cracked tooth K03.81 Assessment & Plan Assessment & Plan (1) Hypertriglyceridemia: Code(s): E78.1 - Pure hyperglyceridemia Category: Medical Plan: The patient is advised to continue monitoring cholesterol levels with fasting blood work. Dietary modifications to reduce triglycerides, such as limiting sweets and shellfish, are recommended. (2) Asthma: Code(s): J45.909 - Unspecified asthma, uncomplicated Category: Medical Plan: The patient will be prescribed Pulmicort for asthma management and instructed on its use. She is advised to reduce albuterol usage and monitor symptoms. Follow-up is recommended to assess the effectiveness of the new inhaler. Discussed with patient if she needs training for her inhaler this can be provided through the office and pharmacy. (3) Bilateral hip pain: Code(s): M25.551 - Pain in right hip; M25.552 - Pain in left hip Category: Medical Plan: Patient complaining of bilateral hip pain plan to obtain x-ray for further evaluation at patient request. (4) Tobacco use: Code(s): Z72.0 - Tobacco use Category: Social Hx Plan: Smoking cigarettes and the use of tobacco can be harmful. We discussed the importance of stopping and options to aid in smoking cessation. Prescription was sent to pharmacy for nicotine patch (5) Cracked tooth: Code(s): K03.81 - Cracked tooth Category: Medical Plan: The patient will discontinue clindamycin due to incorrect usage and potential risk of Clostridioides difficile infection. Ketorolac will be continued for pain management. The patient is advised to monitor for signs of infection such as fever or swelling and to report any such symptoms immediately. Continue to follow with dentist Plan This note was constructed using voice recognition software. While every effort has been made to ensure accuracy and used car salesperson, still areas may have been included sometimes these areas may affect the content or meeting of the given symptoms. Total time spent caring for the patient today was 20 minutes. This includes time spent before the visit reviewing the chart, time spent during the visit, and time spent after the visit and documentation. Patient was informed and verbally consented to the use of an ambient scribe for clinic note documentation during this visit. Orders: Orders TSH reflex Free T4 08/12/25 Z13.29 - Encounter for screening for other suspected endocrine disorder Vitamin B12 and Folate 08/12/25 Z13.21 - Encounter for screening for nutritional disorder Lipid Panel 08/12/25 E78.00 - Pure hypercholesterolemia, unspecified, E78.1 - Pure hyperglyceridemia Vitamin D 25-OH Total 08/12/25 Z13.21 - Encounter for screening for nutritional disorder XR hip BI w PEL1V 08/12/25 M25.551 - Pain in right hip, M25.552 - Pain in left hip Medications: New nicotine 1 patch transdermal Q24H 28 ea 0RF budesonide 90 mcg/actuation (Pulmicort Flexhaler) 1 inh inhalation BID 1 ea 0RF Refilled ketorolac received 30mg IM in the ED 10 mg PO Q6H PRN 30 tabs 0RF pain Discontinued clindamycin HCl (Cleocin HCl) Discontinued Reason: Patient no longer taking 600 mg (2 x 300 mg) PO TID 5 days 30 caps 0RF ibuprofen Discontinued Reason: Patient no longer taking 400 mg PO TID PRN 30 tabs 0RF fever or pain
[2025-08-12 13:50] VITALS: BP 90/60; PULSE 76; TEMP 36.3; O2SAT 97; BMI 28.7
== END 2025-08-12 14:47 | disposition home or self-care (01) ==
LOC: HO.HMCH 13:44
DX: E78.1 Pure hyperglyceridemia (principal); J45.909 Unspecified asthma, uncomplicated; M25.551 Pain in right hip; M25.552 Pain in left hip; Z72.0 Tobacco use; K03.81 Cracked tooth

== ENCOUNTER → 2025-08-12 13:43 | Outpatient (BNVA) | payer MEDICARE, MEDICAID, SELFPAY | DX: E78.1 Pure hyperglyceridemia (principal); J45.909 Unspecified asthma, uncomplicated; M25.551 Pain in right hip; G47.00 Insomnia, unspecified; M25.552 Pain in left hip; K03.81 Cracked tooth; E78.00 Pure hypercholesterolemia, unspecified; F17.210 Nicotine dependence, cigarettes, uncomplicated; Z79.899 Other long term (current) drug therapy | CPT/HCPCS: 96127; 99212 ==

== ENCOUNTER 2025-08-17 07:20 | Emergency (ER) | payer MEDICARE, MEDICAID, SELFPAY ==
[2025-08-17 07:22] VITALS: BP 115/56; PULSE 90; RESP 15; TEMP 36.3; O2SAT 96; BMI 29.6
--- NOTE | 2025-08-17 08:05 | ED.DENTAL ---
HPI - Dental/Oral General Chief complaint: Dental/Oral Stated complaint: dental issue Time Seen by Provider: 08/17/25 07:48 Source: patient Mode of arrival: ambulatory Limitations: no limitations History of Present Illness ED Provider: HPI Narrative: 34-year-old woman, next week she has wisdom teeth extractions, has been on antibiotics, has been prescribed ketorolac by her PCP and states he has not been able to sleep no fevers or chills no neck stiffness reported. Teeth map:  1. Right upper molar eroded Related Data Home Medications ?Medication ?Instructions ?Recorded ?Confirmed clonazepam 0.5 mg tablet 0.5 mg PO TID 03/21/23 08/12/25 quetiapine 200 mg tablet (Seroquel) 200 mg PO DAILY 03/21/23 08/12/25 gabapentin 100 mg capsule 100 mg PO DAILY 06/03/25 08/12/25 Previous Rx's ?Medication ?Instructions ?Recorded omeprazole 40 mg capsule,delayed 40 mg PO DAILY #90 caps 05/07/25 release bictegravir 50 mg-emtricitabine 1 tab PO DAILY 30 days #30 tabs 06/03/25 200 mg-tenofovir alafenam 25 mg tablet (Biktarvy) metoclopramide HCl 10 mg tablet 10 mg PO Q6H PRN nausea and 07/26/25 (Reglan) vomiting #14 tabs budesonide 90 mcg/actuation breath 1 inh inhalation BID #1 ea 08/12/25 activated powder inhaler (Pulmicort Flexhaler) ketorolac 10 mg tablet 10 mg PO Q6H PRN pain #30 tabs 08/12/25 nicotine 21 mg/24 hr daily 1 patch transdermal Q24H #28 ea 08/12/25 transdermal patch valacyclovir 500 mg tablet 500 mg PO DAILY 30 days #30 tabs 08/12/25 oxycodone 5 mg tablet 5 mg PO Q6H PRN pain #10 tabs 08/17/25 Allergies Allergy/AdvReac Type Severity Reaction Status Date / Time amoxicillin Allergy Intermediate Nausea and Verified 08/17/25 07:25 Vomiting oxycodone Allergy Intermediate Nausea and Verified 08/17/25 07:25 Vomiting citalopram (From Celexa) Allergy Unknown Unknown Verified 08/17/25 07:25 sulfamethoxazole (From Allergy Unknown Unknown Verified 08/17/25 07:25 Bactrim) sulindac Allergy Unknown Unknown Verified 08/17/25 07:25 trimethoprim (From Bactrim) Allergy Unknown Unknown Verified 08/17/25 07:25 Review of Systems Constitutional: Constitutional: Reports as per [facility] Past Medical History Medical History Herpes simplex Anxiety Depression demise, greater than 22 weeks, antepartum, single gestation Smoker delivery due to maternal disorder Right ovarian cyst HIV (human immunodeficiency virus infection) Hernia of abdominal cavity Surgical History S/P repair of ventral hernia (07/11/24) Previous delivery, antepartum condition or complication S/P left oophorectomy S/p partial hysterectomy with remaining cervical stump Family History Family History Other No known health problems Social History Social History Household Members: Family Housing: House Are you a primary acute care physical therapist to a significant other at home: No Do you presently have visiting nurse or other home services: No Alcohol intake: unknown Patient Tobacco Use Status: Current everyday Tobacco user Tobacco use type: Cigarette Cigarette Packs Per Day: 0.5 Cigarettes Per Day: 10.0 e-Cigarette/Vaping Use: Never Used Second Hand Smoke Exposure: Yes Substance Use Type: Marijuana Advance Directives: No Advance Directives Information Provided: No Do you have a plan to hurt others: No Plan service: No Current occupational status: disabled Cognitive needs: No Hearing needs: No Vision needs: Yes (Glasses) Physical Exam Vital Signs: Vital Signs: Last Vital Signs Temp 97.3 F 08/17/25 07:22 Pulse 90 08/17/25 07:22 Resp 15 08/17/25 07:22 BP 115/56 L 08/17/25 07:22 Pulse Ox 96 08/17/25 07:22 O2 Del Method Room Air 08/17/25 07:22 BMI result Body Mass Index 29.6 Const: Other: General: ?Appears of stated age Dental: Poor dentition and erosion of wisdom teeth both upper and lower, without swelling around the gumline without drainage, uvula is midline ? Neck: Supple, no LAD ? ?Resp: ?No wheezing rales rhonchi no stridor moving air well ? Skin: Warm, dry, intact, ? ?Neuro: ?Alert and oriented x3, moving upper and lower extremities symmetrically, no obvious facial asymmetry noted, cranial nerves 2-12 intact Medical Decision Making Medical Decision Making MDM Narrative: 8:16 AM 08/17/2025 (Dr. Matias May): No evidence for peritonsillar abscess, no evidence for apical abscesses drainage, no evidence for Dom's angina, offered dental block, pain control, she just got off antibiotics they took her off because she has been on and off for antibiotics in the concern for C diff but there was no evidence for ongoing infection so I will hold off of it, she does have PCP involved in her care and oral surgeon for tooth extraction. Differential Diagnosis Differential Diagnoses: The differential diagnosis associated with the presentation includes Procedures Nerve Block Nerve Block 1: Side: right Intraoral Nerve Block: superior alveolar Procedure Successful: Yes Patient Tolerated Procedure: well Complications: none Discharge Plan Discharge Clinical Impression: Pain, dental Instructions: Toothache (ED) Additional Instructions: I recommend acetaminophen 650 mg every 6 hours around the clock just like any prescribed medication until your tooth extraction, can continue taking ketorolac but I do not find any more difference then using ibuprofen 400 mg every 6 hours taking with food as well I will provide you with few dose of oxycodone, additional pain medications should be provided to you by your PCP and I am not able to provide he has pain meds until your extraction Difficulty swallowing liquids, neck stiffness spiking fevers come back to the ER Prescriptions: New oxycodone 5 mg tablet 5 mg PO Q6H PRN (Reason: pain) Qty: 10 0RF Rx Instructions: Partial Fill upon patient request. No Action omeprazole 40 mg capsule,delayed release(DR/EC) 40 mg PO DAILY Qty: 90 2RF valacyclovir 500 mg tablet 500 mg PO DAILY 30 Days Qty: 30 5RF metoclopramide HCl [Reglan] 10 mg tablet 10 mg PO Q6H PRN (Reason: nausea and vomiting) Qty: 14 0RF clonazepam 0.5 mg tablet 0.5 mg PO TID quetiapine [Seroquel] 200 mg tablet 200 mg PO DAILY ketorolac 10 mg tablet 10 mg PO Q6H PRN (Reason: pain) Qty: 30 0RF Rx Instructions: received 30mg IM in the ED Pulmicort Flexhaler 90 mcg/actuation aerosol powdr breath activated 1 inh inhalation BID Qty: 1 0RF nicotine 21 mg/24 hr patch 24 hour 1 patch transdermal Q24H Qty: 28 0RF gabapentin 100 mg capsule 100 mg PO DAILY Biktarvy 50-200-25 mg tablet 1 tab PO DAILY 30 Days Qty: 30 5RF Print Language: Comoran
[2025-08-17] MEDS: Morphine Sulfate ER 15 MG TABLET.ER PO (08:11)
[2025-08-17 09:45] VITALS: BP 126/71; PULSE 76; RESP 18; TEMP 36.6; O2SAT 98
== END 2025-08-17 09:46 | disposition home or self-care (01) ==
PROVIDERS: Emergency Provider Emergency Medicine
DX: K08.89 Other specified disorders of teeth and supporting structures (principal); F17.210 Nicotine dependence, cigarettes, uncomplicated; Z79.899 Other long term (current) drug therapy
CPT/HCPCS: 64400; 96372; 99284; J1885

== ENCOUNTER 2025-10-28 15:41 | Outpatient (AMB) | payer MEDICARE, MEDICAID, SELFPAY ==
--- NOTE | 2025-10-28 16:08 | MHC.PC.OV ---
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 Accompanied by: Self / Same As Patient Allergies amoxicillin Allergy (Intermediate, Verified 10/28/25 16:08) Nausea and Vomiting oxycodone Allergy (Intermediate, Verified 10/28/25 16:08) Nausea and Vomiting citalopram (From Celexa) Allergy (Unknown, Verified 10/28/25 16:08) Unknown sulfamethoxazole (From Bactrim) Allergy (Unknown, Verified 10/28/25 16:08) Unknown sulindac Allergy (Unknown, Verified 10/28/25 16:08) Unknown trimethoprim (From Bactrim) Allergy (Unknown, Verified 10/28/25 16:08) Unknown Tobacco use date assessed: 08/12/25 Dental Screening Dental Screen Date: 08/12/25 [facility] Medical History Herpes simplex Anxiety Depression demise, greater than 22 weeks, antepartum, single gestation Smoker delivery due to maternal disorder Right ovarian cyst HIV (human immunodeficiency virus infection) Hernia of abdominal cavity Surgical History S/P repair of ventral hernia (07/11/24) Previous delivery, antepartum condition or complication S/P left oophorectomy S/p partial hysterectomy with remaining cervical stump Family History Other No known health problems Social History Household Members: Family Housing: House Are you a primary multi care technician to a significant other at home: No Do you presently have visiting nurse or other home services: No Alcohol intake: unknown Patient Tobacco Use Status: Current everyday Tobacco user Tobacco use type: Cigarette Cigarette Packs Per Day: 0.5 Cigarettes Per Day: 10.0 e-Cigarette/Vaping Use: Never Used Second Hand Smoke Exposure: Yes Substance Use Type: Marijuana service: No Current occupational status: disabled Cognitive needs: No Hearing needs: No Vision needs: Yes (Glasses) Questionnaire Thrive Questionnaire Date Thrive assessed: 08/12/25 I am a: Patient What is your living situation today?: I have a steady place to live Within the past 12 months, did the food you bought not last and you didn't have the money to get more?: Never true Within the past 12 months, did you worry whether your food would run out before you got money to buy more?: Never true Do you have trouble paying for medicines?: I choose not to answer this question Do you have trouble getting transportation to medical appointments?: Yes Do you have trouble paying your heating and electricity bill?: I choose not to answer this question Do you have trouble taking care of your child, family member or friend?: No Do you have trouble with day-to-day activities such as bathing, preparing meals, shopping, managing finances, etc.?: No Are you currently unemployed and looking for a job?: No Are you interested in more education?: No Currently or been in a relationship where the following occur: I choose not to answer THRIVE Score: 1 ESTHER-7 AMB Questionnaire ESTHER-7 Date ESTHER - 7 assessed: 08/12/25 Source: Developed by Drs. Sarthak Villatoro, Elizabeth Jasso, Norman Hunt and colleagues, with an educational kimberly from [employer]. Physical exam (Primary Care) Tobacco/Smoking Status: Tobacco use Status Tobacco use date assessed 08/12/25 08/12/25 13:53 Patient Tobacco Use Status Current everyday Tobacco 08/12/25 13:53 Tobacco use type Cigarette 08/12/25 13:53 e-Cigarette/Vaping Use Never Used 08/12/25 13:53 Thrive Assessment: Date of Thrive Assessment Date Thrive assessed 08/12/25 08/12/25 13:53 Currently or been in a relationship where the following occur: I choose not to answer Coding
[2025-10-28 16:09] VITALS: BP 102/78; PULSE 72; TEMP 37.1; O2SAT 95; BMI 29.9
--- NOTE | 2025-10-28 16:12 | AM.OFFVISMDC ---
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 Required: No Accompanied by: Self / Same As Patient Allergies amoxicillin Allergy (Intermediate, Verified 10/28/25 16:20) Nausea and Vomiting oxycodone Allergy (Intermediate, Verified 10/28/25 16:20) Nausea and Vomiting citalopram (From Celexa) Allergy (Unknown, Verified 10/28/25 16:20) Unknown sulfamethoxazole (From Bactrim) Allergy (Unknown, Verified 10/28/25 16:20) Unknown sulindac Allergy (Unknown, Verified 10/28/25 16:20) Unknown trimethoprim (From Bactrim) Allergy (Unknown, Verified 10/28/25 16:20) Unknown Medication List - Last Reconciled 10/28/25 by Lillie Hannah PA-C [id number]-[id number] ala 50-200-25 mg (Biktarvy) 1 tab PO DAILY 30 days budesonide 90 mcg/actuation (Pulmicort Flexhaler) 1 inh inhalation BID clonazepam 0.5 mg PO TID gabapentin 100 mg PO DAILY nicotine 1 patch transdermal Q24H omeprazole 40 mg PO DAILY quetiapine (Seroquel) 200 mg PO DAILY valacyclovir 500 mg PO DAILY 30 days HPI pe HPI Details 34 year old female with past medical history of depression, anxiety, HIV, asthma last seen 08/2025 coming in for AWV. Presenting for an annual wellness visit and to discuss several health concerns. The patient reports long-standing bilateral hip pain that has recently become significantly worse, to the point it is the worst she has ever experienced. The pain disrupts her sleep, makes her feel like she is going to fall when she gets up from a seated position, and can be severe after activities like walking. She has a known history of degenerative disc disease in her lower back. For the past five months, she has been experiencing sweats, characterized by sudden feelings of intense heat. She has a history of a partial hysterectomy with removal of her left ovary 14 years ago and is amenorrheic. Health Screenings: The patient has not had a Pap smear in a long time and has a history of cervical cancer approximately 14 years ago, which was treated with laser ablation. She reports a history of intermittent vertigo, for which she was once treated with meclizine in the ER with good effect. Her asthma has been improving, and she has not had to use her albuterol inhaler frequently since installing an air conditioner in her home. She uses Pulmicort twice a day. pap smear: referral placed vaccines: UTD declines flu [facility] Medical History Herpes simplex Anxiety Depression demise, greater than 22 weeks, antepartum, single gestation Smoker delivery due to maternal disorder Right ovarian cyst HIV (human immunodeficiency virus infection) Hernia of abdominal cavity Surgical History S/P repair of ventral hernia (07/11/24) Previous delivery, antepartum condition or complication S/P left oophorectomy S/p partial hysterectomy with remaining cervical stump Family History Other No known health problems Social History Household Members: Family Housing: House Are you a primary health care recruiter to a significant other at home: No Do you presently have visiting nurse or other home services: No Alcohol intake: unknown Patient Tobacco Use Status: Current everyday Tobacco user Tobacco use type: Cigarette Cigarette Packs Per Day: 0.5 Cigarettes Per Day: 10.0 e-Cigarette/Vaping Use: Never Used Second Hand Smoke Exposure: Yes Substance Use Type: Marijuana service: No Current occupational status: disabled Cognitive needs: No Hearing needs: No Vision needs: Yes (Glasses) Questionnaire Medicare Wellness Checkup What gender do you identify with?: female During the past 4 weeks, how much have you been bothered by emotional problems such as feeling anxious, depressed, irritable, sad or downhearted, and blue?: extremely During the past 4 weeks, has your physical & emotional health limited your social activities with family, friends, neighbors, or groups?: quite a bit During the past 4 weeks, how much bodily pain have you generally had?: severe pain During the past 4 weeks, was someone available to help you if you needed & wanted help?: yes, quite a bit Can you get to places out of walking distance without help? (For eg., can you travel alone on buses, taxis or drive your car?): No Can you go shopping for groceries or clothes without someone's help?: Yes Can you prepare your own meals?: Yes Can you do your housework without help?: Yes Because of any health problems, do you need the help of another person with your personal care needs such as eating, bathing, dressing or getting around the house?: No Can you handle your own money without help?: Yes During the past 4 weeks, how would you rate your health in general?: fair During the past 4 weeks how have things been going for you?: good & bad parts about equal Are you having difficulties driving your car?: no Do you always fasten your seat belt when you are in a car?: yes, usually During past 4 weeks, have you been bothered by the following: never: Sexual problems?, Trouble eating well?, Teeth or denture problems? and Problems using the telephone? and seldom: Falling or dizzy when standing up and Tiredness or fatigue? Have you fallen 2 or more times in the past year?: No Are you afraid of falling?: Yes Are you a smoker?: yes, and I might quit During the past 4 weeks, how many drinks of wine, beer, or other alcoholic beverages did you have?: no alcohol at all Do you exercise for about 20 minutes 3 or more times a week?: yes, most of the time Have you been given information to help with the following?: no: Hazards in your house that might hurt you? and no: Keeping track of your medications? How often do you have trouble taking medicines the way you have been told to take them?: I always take medicine as prescribed How confident are you that you can control & manage most of your health problems?: very confident What is your race?: White PHQ-9 Over the last 2 weeks, how often have you been bothered by any of the following problems? 1. Little interest or pleasure in doing things: several days 2. Feeling down, depressed, or hopeless: several days 3. Trouble falling or staying asleep, or sleeping too much: more than half the days 4. Feeling tired or having little energy: more than half the days 5. Poor appetite or overeating: not at all 6. Feeling bad about yourself - or that you are a failure or have let yourself or your family down: several days 7. Trouble concentrating on things, such as reading the newspaper or watching television: several days 8. Moving or speaking so slowly that other people could have noticed. Or the opposite - being so fidgety or restless that you have been moving around a lot more than usual: not at all 9. Thoughts that you would be better off or of hurting yourself in some way: not at all Total score: 8 Source: Developed by Drs. Sarthak Villatoro, Elizabeth Jasso, Norman Hunt and colleagues, with an educational kimberly from [email or web address]. Thrive Questionnaire Date Thrive assessed: 10/28/25 I am a: Patient What is your living situation today?: I have a steady place to live Within the past 12 months, did the food you bought not last and you didn't have the money to get more?: Never true Within the past 12 months, did you worry whether your food would run out before you got money to buy more?: Never true Do you have trouble paying for medicines?: I choose not to answer this question Do you have trouble getting transportation to medical appointments?: Yes Do you have trouble paying your heating and electricity bill?: I choose not to answer this question Do you have trouble taking care of your child, family member or friend?: No Do you have trouble with day-to-day activities such as bathing, preparing meals, shopping, managing finances, etc.?: No Are you currently unemployed and looking for a job?: No Are you interested in more education?: No Currently or been in a relationship where the following occur: I choose not to answer THRIVE Score: 1 ESTHER-7 AMB Questionnaire ESTHER-7 Date ESTHER - 7 assessed: 08/12/25 Feeling nervous, anxious, or on edge: 3 = Nearly every day Not being able to stop or control worryin = Not at all Worrying too much about different things: 0 = Not at all Trouble relaxin = Not at all Being so restless that it is hard to sit still: 0 = Not at all Becoming easily annoyed or irritable: 0 = Not at all Feeling afraid as if something awful might happen: 0 = Not at all Total ESTHER-7 score (0-4 normal; 5-9 mild; 10-14 moderate; 15-21 severe): 3 Source: Developed by Drs. Sarthak Villatoro, Elizabeth Jasso, Norman Hunt and colleagues, with an educational kimberly from [email or web address]. AUDIT C Alcohol Use Questionnaire (AUDIT-C) 1. How often do you have a drink containing alcohol?: Never 3. How often do you have six or more drinks on one occasion?: Never Total Score: 0 Review of Systems Const Denies body aches, Denies fatigue, Denies fever(s), Denies frequent falls, Denies headache(s) and Denies weakness Eyes Reports no additional complaints and Denies change in vision ENT Denies dysphagia, Denies dizziness, Denies facial pain, Denies headache(s), Denies nasal congestion and Denies odynophagia Card Denies chest pain, Denies syncope, Denies irregular heart rhythm, Denies leg edema, Denies lightheadedness and Denies dyspnea Resp Denies cough and Denies dyspnea GI Denies abdominal pain, Denies constipation, Denies dysphagia, Denies dyspepsia, Denies diarrhea, Denies nausea, Denies odynophagia and Denies vomiting Denies urinary frequency, Denies dysuria, Denies urinary hesitancy and Denies urinary urgency Musc Details: angel hip pain Reports as per HPI, Reports abnormal gait, Denies back pain and Denies myalgias Skin/Breast Reports system reviewed and no additional complaints, except as documented Neuro Reports abnormal gait, Denies dizziness, Denies syncope, Denies frequent falls, Denies headache(s) and Denies weakness Psych Reports no additional complaints Endo Denies fatigue Physical Exam Vital Signs: Last Vital Signs Temp 98.7 F 10/28/25 16:09 Pulse 72 10/28/25 16:09 BP 102/78 10/28/25 16:09 Pulse Ox 95 10/28/25 16:09 Oxygen Delivery Method Room Air 10/28/25 16:09 BMI result Body Mass Index 29.9 Const General: cooperative, healthy appearing, comfortable and no acute distress Orientation/consciousness: patient oriented x3 HEENT Head: Yes normocephalic Ears: hearing grossly normal bilaterally, external ears normal, TM's normal bilaterally and EAC's normal General nose exam: Normal external nose present Face and sinus: Yes normal facial exam and Yes sinuses nontender Mouth: Normal oral and palatal mucosa present and tongue normal Throat: Yes posterior oropharynx normal Eyes General: appearance normal, both eyes and all related structures Conjunctivae: conjunctivae normal Pupils: Equal, round and reactive pupils present EOM: EOMs intact bilaterally and No Nystagmus present Neck Neck: Yes normal visual inspection, Yes full ROM and Yes no lymphadenopathy Chest Chest palpation & inspection: normal inspection of the chest Resp Effort & Inspection: normal respiratory effort Auscultation: clear to auscultation bilaterally, no crackles, no rales, no rhonchi, no wheezes and breath sounds present Cardio Rate: regular rate Rhythm: regular rhythm Peripheral pulses: radial pulses present and dorsalis pedis present GI Inspection: Yes normal to inspection and No Abdominal wall edema Palpation (GI): Soft to palpation, not firm and nontender Auscultation: normal bowel sounds Rectal Exam - Female: deferred General: Yes no CVA tenderness Back/Spine/Pelvis Other: TTP of bilateral hips and pain with lateral raise angel Back: no CVA tenderness Skin General skin exam: no rashes or lesions noted Neuro General: patient oriented x3 Cranial nerves: Yes Equal, round and reactive pupils present, Yes Midline tongue present, Yes Ability to bilaterally elevate shoulders present and No Nystagmus present Gait exam (Neuro): Normal gait present Extrem General: Yes normal to inspection, Yes full ROM, No no pedal edema and No edema Psych Speech and movement: Normal speech and movement present Affect: normal affect Insight: Good insight present (Psych) Judgement: Good judgement present (Psych) Assessment & Plan Assessment & Plan (1) Annual physical exam: Code(s): Z00.00 - Encounter for general adult medical examination without abnormal findings Plan: Patient has not yet due for screening mammogram or colonoscopy a referral will be placed when she reaches the recommended age. She does have an appointment for gynecology and is overdue for a Pap smear. Reminded patient about up-to-date blood work to be completed prior to next visit. Healthy diet and regular exercise is encouraged. [place] of care was reviewed with patient patient was provided with a written screening schedule. (2) Hot flashes: Code(s): R23.2 - [place] Plan: The patient's new onset of diaphoresis may be due to early menopause, considering her history of a partial hysterectomy with unilateral oophorectomy. To investigate, fasting blood work for hormone levels was ordered. She was advised to discuss these symptoms and potential management, such as hormone replacement therapy, with the mainspring winder and oiler at her upcoming appointment. She should have the blood work done before this visit. Symptoms have been ongoing for months and patient denies any fevers. I did review red flag symptoms and when to present for re-evaluation as well (3) Hypertriglyceridemia: Code(s): E78.1 - Pure hyperglyceridemia Plan: The patient is advised to continue monitoring cholesterol levels with fasting blood work. Dietary modifications to reduce triglycerides, such as limiting sweets and shellfish, are recommended. Reminded about blood work. (4) Asthma: Code(s): J45.909 - Unspecified asthma, uncomplicated Plan: Asthma currently controlled on present medications. Continue on Pulmicort and albuterol.? Avoid triggers such as allergies. (5) Bilateral hip pain: Code(s): M25.551 - Pain in right hip; M25.552 - Pain in left hip Plan: The patient's worsening bilateral hip pain is significantly impacting her mobility and sleep. The differential diagnosis includes arthritis and trochanteric bursitis, with possible contribution from her known degenerative disc disease. An order for bilateral hip X-rays will be placed to further evaluate. For symptomatic relief, meloxicam and a muscle relaxer (cyclobenzaprine) were prescribed. She was counseled to take meloxicam with food and to monitor for any adverse reaction due to her history of an allergy to sulindac, and to avoid driving while taking the muscle relaxer. She tolerates ibuprofen well and is unsure of her allergy to Sulindac. (6) Tobacco use: Code(s): Z72.0 - Tobacco use Plan: Smoking cigarettes and the use of tobacco can be harmful. We discussed the importance of stopping and options to aid in smoking cessation. Prescription was sent to pharmacy for nicotine patch (7) Anxiety: Comment: Continue medication Follow [facility] every 3 months Code(s): F41.9 - Anxiety disorder, unspecified Plan: The patient's anxiety and depression are being managed by an outside specialist. She will continue to follow up with her provider at [facility]. (8) Depression: Code(s): F32.A - Depression, unspecified Plan: see above (9) HIV (human immunodeficiency virus infection): Comment: She is doing well and has good immune control and viral load undetectable. She is trying to quit smoking. Would continue using nicotine patch. Continue Biktarvy. See in six months,meds written for Follow Legislative Aide. Code(s): B20 - Human immunodeficiency virus [HIV] disease Plan: Continue to follow with ID w/ Dr. Clinton Plan This note was constructed using voice recognition software. While every effort has been made to ensure accuracy and director of development, still areas may have been included sometimes these areas may affect the content or meeting of the given symptoms. Total time spent caring for the patient today was 20 minutes. This includes time spent before the visit reviewing the chart, time spent during the visit, and time spent after the visit and documentation. Patient was informed and verbally consented to the use of an ambient scribe for clinic note documentation during this visit. Orders: Orders Estrogen 10/28/25 R23.2 - [place] Lutenizing Hormone 10/28/25 R23.2 - [place] Follicle Stimulating Hormone 10/28/25 R23.2 - [place] Prolactin 10/28/25 R23.2 - [place] Referrals SURGICAL DEVICE SALES REPRESENTATIVE Referral Z12.4 - Encounter for screening for malignant neoplasm of cervix Medications: New cyclobenzaprine 5 mg PO BEDTIME 30 tabs 0RF meloxicam 15 mg PO DAILY 30 tabs 0RF Refilled nicotine 1 patch transdermal Q24H 28 ea 0RF Quality Reporting (2019) Depression/Bipolar (159/160/161/177) PHQ-9: Total score: 8 Coding Level of Care Code Medicare Subsequent (G0439) Diagnoses Annual physical exam Z00.00 Hot flashes R23.2 Hypertriglyceridemia E78.1 Asthma J45.909 Bilateral hip pain M25.551; M25.552 Tobacco use Z72.0 Anxiety F41.9 Depression F32.A HIV (human immunodeficiency virus infection) B20
== END 2025-10-28 16:51 | disposition home or self-care (01) ==
LOC: HO.HMCH 15:42
DX: Z00.00 Encounter for general adult medical examination without abnormal findings (principal); R23.2 Flushing; E78.1 Pure hyperglyceridemia; J45.909 Unspecified asthma, uncomplicated; M25.551 Pain in right hip; M25.552 Pain in left hip; Z72.0 Tobacco use; F41.9 Anxiety disorder, unspecified; F32.A Depression, unspecified; B20 Human immunodeficiency virus [HIV] disease

== ENCOUNTER 2025-10-30 11:17 | Emergency (ER) | payer MEDICARE, MEDICAID, SELFPAY ==
[2025-10-30 11:43] VITALS: BP 126/59; PULSE 112; RESP 20; TEMP 36.8; O2SAT 95; BMI 29.9
--- NOTE | 2025-10-30 11:44 | ED_ITS ---
HPI - General Adult General Chief complaint: Upper Respiratory Symptoms Stated complaint: cough, chills Time Seen by Provider: 10/30/25 12:36 Source: patient, RN notes reviewed and old records reviewed Mode of arrival: ambulatory Limitations: no limitations History of Present Illness ED Provider: Santa HPI narrative: Patient is a 35-year-old female presenting to the emergency department with 3 days of sore throat, chills/subjective fever. Denies any known sick contacts. Mild non productive cough. MD complaint: sore throat Related Data Home Medications ?Medication ?Instructions ?Recorded ?Confirmed clonazepam 0.5 mg tablet 0.5 mg PO TID 03/21/2310/28 quetiapine 200 mg tablet (Seroquel) 200 mg PO DAILY 10/28/25 gabapentin 100 mg capsule 100 mg PO DAILY 06/03/25 Previous Rx's ?Medication ?Instructions ?Recorded omeprazole 40 mg capsule,delayed 40 mg PO DAILY #90 ca ps 05/07/25 release bictegravir 50 mg-emtricitabine 1 tab PO DAILY 30 days #30 tabs 06/03/25 200 mg-tenofovir alafenam 25 mg tablet (Biktarvy) budesonide 90 mcg/actuation breath 1 inh inhalation BI D #1 ea 08/12/25 activated powder inhaler (Pulmicort Flexhaler) valacyclovir 500 mg tablet 500 mg PO DAILY 30 days #30 tabs 08/12/25 cyclobenzaprine 5 mg tablet 5 mg PO BEDTIME #30 tabs 1 12/29/24 meloxicam 15 mg tablet 15 mg PO DAILY #30 tabs 10/08 01/01 nicotine 21 mg/24 hr daily 1 patch transdermal Q24H #2 8 ea 10/28/25 transdermal patch Allergies Allergy/AdvReac Type Severity Reaction Status Date / Time amoxicillin Allergy Intermediate Nausea and Verified 10/30/25 11:45 Vomiting oxycodone Allergy Intermediate Nausea and Verified 10/30/25 11:45 Vomiting citalopram (From Celexa) Allergy Unknown Unknown Verified 10/30/25 11:45 sulfamethoxazole (From Allergy Unknown Unknown Verified 10/30/25 11:45 Bactrim) sulindac Allergy Unknown Unknown Verified 10/30/25 11:45 trimethoprim (From Bactrim) Allergy Unknown Unknown Verified 10/30/25 11:45 Review of Systems Review of Systems: as per hpi Yes all other systems are reviewed and are negative Constitutional: Constitutional: Reports as per HPI [facility] Past Medical History Medical History Herpes simplex Anxiety Depression demise, greater than 22 weeks, antepartum, single gestation Smoker delivery due to maternal disorder Right ovarian cyst HIV (human immunodeficiency virus infection) Hernia of abdominal cavity Surgical History S/P repair of ventral hernia (07/11/24) Previous delivery, antepartum condition or complication S/P left oophorectomy S/p partial hysterectomy with remaining cervical stump Family History Family History Other No known health problems Social History Social History Household Members: Family Housing: House Are you a primary infant caregiver to a significant other at home: No Do you presently have visiting nurse or other home services: No Alcohol intake: unknown Patient Tobacco Use Status: Current everyday Tobacco user Tobacco use type: Cigarette Cigarette Packs Per Day: 0.5 Cigarettes Per Day: 10.0 e-Cigarette/Vaping Use: Never Used Second Hand Smoke Exposure: Yes Substance Use Type: Marijuana Advance Directives: No Advance Directives Information Provided: No service: No Current occupational status: disabled Cognitive needs: No Hearing needs: No Vision needs: Yes (Glasses) Physical Exam ED Vital Signs: Vital Signs - 24 hr 10/30/25 11:43 Temperature 98.3 F Pulse Rate 112 H Respiratory Rate 20 Blood Pressure 126/59 L Pulse Oximetry 95 Oxygen Delivery Method Room Air BMI result Body Mass Index 29.9 Vital signs have been reviewed and appear to be correct. Blood pressure normal. Heart rate mildly tachycardic. Respiratory rate normal. Temperature normal. Oxygen saturation normal. Const General: cooperative, healthy appearing and no acute distress Orientation/consciousness: oriented to person, oriented to place, oriented to time and patient oriented x3 Limitations: no limitations HENMT Head: Yes normocephalic and Yes atraumatic Ears: external ears normal, TM's normal bilaterally and EAC's normal General nose exam: Normal external nose present and Normal nasal mucous membranes and turbinates present Face and sinus: Yes face symmetric Mouth: Normal oral and palatal mucosa present, lip normal, tongue normal, oropharynx normal and moist mucous membranes Throat: Yes posterior oropharynx normal and Yes uvula midline Eyes Pupils: Equal, round and reactive pupils present Neck Neck: Yes normal visual inspection, Yes no lymphadenopathy and Yes supple Resp Effort & Inspection: normal respiratory effort and able to speak in complete sentences Auscultation: clear to auscultation bilaterally Cardio Rate: regular rate Rhythm: regular rhythm Heart sounds: S1 normal heart sound present and S2 normal heart sound present GI Palpation (GI): Soft to palpation and nontender Auscultation: normoactive bowel sounds General: Yes no CVA tenderness Back/Spine/Pelvis Back: no CVA tenderness Skin General skin exam: elasticity normal and turgor normal Neuro General: oriented to person, oriented to place, oriented to time, patient oriented x3, moves all extremities, no focal motor deficits and CN's II-XI intact bilaterally Cranial nerves: Yes Equal, round and reactive pupils present Cognition (Neuro): normal cognition Extrem General: Yes full ROM, Yes no pedal edema and Yes no calf tenderness Psych Mental Status: mental status grossly normal Affect: normal affect Thought process: Normal thought process present Course Course Course Narrative: This is a rapid medical exam performed by Kyra Pratt NP: Additional HPI, ROS, PE not included below will be deferred to primary provider. Patient is a 35y/o F presenting with a few days of chills and scratchy throat. Plan: strep and viral serology Medical Decision Making Medical Decision Making MDM Narrative: Patient is a 35-year-old female presenting to the emergency department with 3 days of sore throat, chills/subjective fever. On exam patient is awake, A+Ox3, mildly tachy, VS otherwise WNL, afebrile, normal neurological exam without focal deficits, physical exam findings as above. Given reported symptoms and physical exam findings, initial differential includes but is not limited to viral illness, flu, covid, strep pharyngitis. Viral serology positive for influenza A. Strep negative. Results discussed with patient and all questions answered. Discussed that treatment is symptomatic management, ensure adequate fluids rest and fluid intake, alternate Tylenol and ibuprofen as needed for fever and discomfort. Follow up with PCP as needed. Return precautions discussed. Patient verbalized understanding of and agreement with plan. Differential Diagnosis Differential Diagnoses: The differential diagnosis associated with the presentation includes As per [facility] Admission/Observation Consideration of admission/observation: Escalation of care including admission/observation considered Patient would have been admitted to the hospital and transferred to appropriate facility had their clinical presentation warranted hospital admission. Lab Data [facility] Lab Attestation statement: I reviewed the patient's lab results. as per [facility] Labs: Lab Results 10/30/25 Range/Units 11:51 Influenza Type A (PCR) POSITIVE A (Negative) Influenza Type B (PCR) NEGATIVE (Negative) RSV RNA Qual (PCR) NEGATIVE (Negative) SARS-CoV-2 RNA (RT-PCR) NEGATIVE (Negative) S. pyogenes GrpA ARMAAN Negative (Negative) External Record Review External record reviewed: Inpatient record, Office record and Outpatient record Discharge Plan Discharge Clinical Impression: Influenza A Patient Disposition: Home, Self-Care Instructions: Influenza (DC), Flu Shot (Vaccine) for Adults (ED), Droplet Precautions (ED) Additional Instructions: You were evaluated in the emergency department today for sore throat and chills. Your flu test was positive. You should isolate at home for another 4 days and continue to wear mask while symptomatic after that. Your symptoms should resolve over time with rest and fluids. You can take 650 mg Tylenol or 600 mg ibuprofen every 6 hours as needed for fever or pain. You can also use over the counter nasal saline spray several times daily. Please follow-up with your primary care provider for any ongoing symptoms. Return to the emergency department if you develop worsening pain, fever not controlled with Tylenol and ibuprofen, chest pain, dizziness or lightheadedness, or any other concerning symptoms. Prescriptions: No Action omeprazole 40 mg capsule,delayed release(DR/EC) 40 mg PO DAILY Qty: 90 2RF valacyclovir 500 mg tablet 500 mg PO DAILY 30 Days Qty: 30 5RF clonazepam 0.5 mg tablet 0.5 mg PO TID quetiapine [Seroquel] 200 mg tablet 200 mg PO DAILY meloxicam 15 mg tablet 15 mg PO DAILY Qty: 30 0RF cyclobenzaprine 5 mg tablet 5 mg PO BEDTIME Qty: 30 0RF nicotine 21 mg/24 hr patch 24 hour 1 patch transdermal Q24H Qty: 28 0RF Pulmicort Flexhaler 90 mcg/actuation aerosol powdr breath activated 1 inh inhalation BID Qty: 1 0RF gabapentin 100 mg capsule 100 mg PO DAILY Biktarvy 50-200-25 mg tablet 1 tab PO DAILY 30 Days Qty: 30 5RF Print Language: Italian
[2025-10-30 12:02] LABS: Strep A Nucleic Acid Negative (Negative)
[2025-10-30 12:32] LABS: Resp Syncy Virus RNA Qual PCR NEGATIVE (Negative); SARS COV2 PCR INHOUSE NEGATIVE (Negative)
[2025-10-30 13:53] VITALS: BP 126/59; PULSE 112; RESP 20; TEMP 36.8; O2SAT 95
== END 2025-10-30 13:54 | disposition home or self-care (01) ==
PROVIDERS: Registered Nurse Emergency; Emergency Provider Emergency Medicine
DX: J10.1 Influenza due to other identified influenza virus with other respiratory manifestations (principal); R05.9 Cough, unspecified; Z03.818 Encounter for observation for suspected exposure to other biological agents ruled out; F17.210 Nicotine dependence, cigarettes, uncomplicated
CPT/HCPCS: 87637; 87651; 99282; 99283